=== PATIENT | female | born 1955 | race Caucasian/White ===

== ENCOUNTER 2023-09-02 11:27 | Inpatient (IN) ==
[2023-09-02 12:06] LABS: Basophils # (auto) 0.03 K/uL (0.00-0.20); Basophils % (auto) 0.4 %; Eosinophils # (auto) 0.16 K/uL (0.00-0.50); Eosinophils % (auto) 2.2 %; Hematocrit (blood only) 40.1 % (37.0-47.0); Hemoglobin 13.2 g/dl (12.0-16.0); Immature Granulocytes # (auto) 0.01 K/uL (0.01-0.20); Immature Granulocytes % (auto) 0.1 %; Lymphocytes # (auto) 2.62 K/uL (1.20-3.40); Lymphocytes % (auto) 36.4 %; Mean Corpuscular Hemoglobin 28.8 pg (25.0-34.0); Mean Corpuscular Hgb Conc 32.9 g/dL (32.0-36.0); Mean Corpuscular Volume 87.6 fL (80.0-100.0); Mean Platelet Volume 9.6 fL (9.4-12.4); Monocytes # (auto) 0.45 K/uL (0.11-0.59); Monocytes % (auto) 6.3 %; Neutrophils # (auto) 3.93 K/uL (1.40-6.50); Neutrophils % (auto) 54.6 %; Platelet Count 330 K/uL (130-400); RDW Coefficient of Variation 12.9 % (11.5-14.5); RDW Standard Deviation 41.3 fL (36.4-46.3); Red Blood Count 4.58 M/uL (4.20-5.40)
[2023-09-02 12:22] LABS: Alanine Aminotransferase 15 U/L (7-52); Albumin Globulin Ratio 1.5 (0.9-2); Albumin Level 4.5 gm/dl (3.4-5.0); Alkaline Phosphatase 63 U/L (34-104); Anion Gap 8 (3-11); Aspartate Aminotransferase 17 U/L (13-39); BUN Creatinine Ratio 11.3 (10-20); Bilirubin,Total 0.8 mg/dl (0.2-1.0); Blood Urea Nitrogen 13 mg/dl (6-23); Calcium 9.6 mg/dl (8.6-10.3); Carbon Dioxide 28 mmol/L (21-32); Chloride 103 mmol/L (98-107); Est GFR (African American) 57.4 ml/min; Est GFR (Non-African American) 49.5 ml/min; Globulin 3.1 gm/dl (2.5-4.0); Glucose 92 mg/dl (70-99(Fasting)); Lipase 13 U/L (11-82); Potassium 4.1 mmol/L (3.5-5.1); Sodium 139 mmol/L (136-145); Total Protein 7.6 gm/dl (6.0-8.3)
--- NOTE | 2023-09-02 12:55 | CT Scan Report ---
ABDOMEN AND PELVIS CT WITHOUT CONTRAST CT DOSE: 900.75 mGy.cm HISTORY: abd pain, recurrent diverticulitis TECHNIQUE: Multiaxial CT images of the abdomen and pelvis were performed without contrast. A dose lo wering technique was utilized adhering to the principles of ALARA. COMPARISON STUDY: Abdomen and pelvis CT 08/24/2023. FINDINGS: A few bibasilar linear densities consistent with subsegmental atelectasis. No acute fractur es. The unenhanced liver, spleen, adrenal glands, and pancreas unremarkable. Prior cholecystectomy. N o retroperitoneal lymphadenopathy. There is a punctate left renal stone again noted. No ureteral ston es. No hydronephrosis. Mild calcified plaque within the normal caliber abdominal aorta. Stable hypode nse lesions within the left kidney measuring up to 1.5 cm. The bladder is unremarkable. The uterus an d bilateral adnexa are unremarkable. Mild pericolonic fat stranding at the mid sigmoid colon within i nflamed diverticulum best seen on image 222. This is consistent with an acute diverticulitis. No perf oration or abscess at this time. Normal appendix. IMPRESSION: 1. Interval progression of mild acute sigmoid diverticulitis seen on the prior study. No perforation or abscess identified at this time. 2. Left-sided nephrolithiasis. No hydronephrosis. 3. Additional findings as described above. ACT 112: Negative or not required by law. Electronically signed by: Randolph Mendoza M.D. 09/02/2023 12:53 PM
--- NOTE | 2023-09-02 13:26 | Emergency Department Note ---
Impression & Plan Diverticulitis, Failure of outpatient treatment ED Provider Note NAME: SARA PATEL AGE: 67 SEX: F : 1955 ARRIVES VIA: Walk-In INFORMANT: Patient, ED PROVIDER(S): Toy Pimentel MD CHIEF COMPLAINT: Abdominal pain HPI: This is a 67-year-old female with history of immunosuppression, recurrent diverticulitis presenting for worsening abdominal pain. Patient states she has had 3 rounds of previous diverticulitis, most recently over the past 2 to 3 months. She notes that she has had worsening abdominal pain since her last diagnosed diverticulitis about 1 to 2 weeks ago. She notes the pain was currently left lower quadrant and now has radiated to her entire abdomen. She notes she feels fatigued as well as nausea without vomiting or constipation or diarrhea. She notes no fevers at home. ROS: See above HPI for pertinent positives & negatives. A total of 10 systems reviewed and were otherwise negative. PAST MEDICAL HISTORY: See Below PAST SURGICAL HISTORY: See Below FAMILY HISTORY: See Below SOCIAL HISTORY: See Below HOME MEDICATIONS: See Below ALLERGIES: See Below VITALS: See Below PHYSICAL EXAMINATION: General: resting comfortably in no acute distress Head: Normocephalic and atraumatic Eyes: Normal inspection, extraocular muscles intact Ear, nose, throat: Normal external exam Neck: Normal range of motion Respiratory: lungs clear to auscultation bilaterally Cardiovascular: Regular rate/rhythm, no murmur GI: Diffusely tender without rebound, mild voluntary guarding, soft Extremities: nontender, moves all extremities Neuro: The patient awake and alert, appropriately conversive, no focal deficits, symmetric faces Skin: Warm, dry, and intact MEDICAL DECISION MAKING: This is a 67-year-old female with history of immunosuppression, recurrent diverticulitis refers abdominal pain. CT imaging ordered in triage due to patient's complicated abdominal history and immunosuppression. Otherwise blood work also ordered. -Lab work reviewed without leukocytosis, anemia. No electrolyte disturbances. No lipase elevation -Patient's abdomen is diffusely tender -CT imaging reveals interval progression of mild sigmoid diverticulitis. -Will give patient Zosyn. Tolerated well without any acute allergic reaction despite her current allergies. -Due to prolonged course of patient diverticulitis despite p.o. antibiotics, consider this a failure of outpatient treatment. Will admit for IV antibiotics at this time. Differential diagnosis: SBO, pancreatitis, diverticulitis, cholecystitis, appendicitis ER treatment provided: See below Diagnostics interpreted by me: ECG: ECG independently interpreted by me with normal sinus rhythm, rate of 59, normal axis, normal NE, normal QRS, normal QTc, no ST segment elevations consistent with STEMI criteria Cardiac Monitoring: An order was placed for continuous cardiac monitoring. The monitor shows a rate of 54 with sinus rhythm. Laboratory studies: As stated above and show below. Imaging studies: See below. Past Med/Surg History Medical History Hx of retinal detachment Family History Father Aortic aneurysm Bladder cancer Family history of prostate carcinoma Heart disease Hyperlipidemia Aunt COPD (chronic obstructive pulmonary disease) Brother Diabetes Mother Hypertension Cataract Glaucoma Social History Smoking Status: Former smoker Tobacco Type: Cigarettes Preferred Language: Korean marital status: Feels Safe at Home: Yes Allergies Allergies Allergy/AdvReac Type Severity Reaction Status Date / Time Iodinated Contrast Media Allergy Severe Anaphylaxis Verified 09/02/23 15:12 cephalexin [From Keflex] Allergy Intermediate HARD Verified 09/02/23 15:12 REDDENED, FRANCISCO-LIKE AREA ON ARM AFTER PO DOSE Latex, Natural Rubber Allergy Intermediate ITCHY RASH Verified 09/02/23 15:12 nickel Allergy Intermediate ITCHY RASH Verified 09/02/23 15:12 Penicillins Allergy Intermediate HARD Verified 09/02/23 15:12 REDDENED, FRANCISCO-LIKE AREA ON ARM AFTER PO DOSE. amoxicillin [From Augmentin] Allergy Mild HARD Verified 09/02/23 15:12 REDDENED, FRANCISCO-LIKE AREA ON ARM AFTER PO DOSE clavulanic acid Allergy Mild HARD Verified 09/02/23 15:12 [From Augmentin] REDDENED, FRANCISCO-LIKE AREA ON ARM AFTER PO DOSE lidocaine AdvReac Severe INFUSION--S Verified 09/02/23 15:12 EIZURE prochlorperazine AdvReac Intermediate MUSCLE Verified 09/02/23 15:12 [From Compazine] SPASMS THAT CAUSED NECK TO CONTORT Home Meds Home Medications Medication Instructions Recorded Confirmed aspirin 81 mg capsule 81 mg PO DAILY 08/31/22 09/02/23 cholecalciferol (vitamin D3) 50 50 mcg PO DAILY 08/31/22 09/02/23 mcg (2,000 unit) capsule hydroxyzine HCl 10 mg tablet 10 mg PO DAILY 08/31/22 09/02/23 mecobalamin (vitamin B12) 500 mcg 500 mcg PO Q OTHER DAY 08/31/22 09/02/23 chewable tablet polyethylene glycol 3350 17 8.5 g PO BID PRN Constipation 08/31/22 09/02/23 gram/dose oral powder (Miralax) amlodipine 2.5 mg tablet See Rx Instructions .Route .COMPLEX 07/26/23 09/02/23 bupropion HCl 150 mg 24 hr tablet, 150 mg PO TID 07/26/23 09/02/23 extended release mupirocin 2 % topical ointment 1 applic topical TID PRN Open 07/26/23 09/02/23 Wounds pregabalin 75 mg capsule 75 mg PO TID 07/26/23 09/02/23 vitamin B complex 1 tab PO Q OTHER DAY 07/26/23 09/02/23 vitamin B12 0.5 mg-folic acid 1 mg 1 tab PO Q OTHER DAY 07/26/23 09/02/23 tablet Compound Ointment 1 applic topical QID 08/24/23 09/02/23 ascorbic acid (vitamin C) 500 mg 500 mg PO DAILY 08/24/23 09/02/23 tablet (Vitamin C) betamethasone, augmented 0.05 % 1 applic topical BID 08/24/23 09/02/23 topical ointment clobetasol 0.05 % topical ointment 1 applic topical BID 08/24/23 09/02/23 Results & Data (ED) Vital Signs Vital Signs - 24 hr 09/02/23 11:29 09/02/23 15:52 Temperature 36.6 C Temperature Source Temporal Artery Scan Pulse Rate 79 Pulse Rate [Finger] 54 L Pulse Rhythm [Finger] Regular Pulse Strength [Finger] Normal Respiratory Rate 16 Respiratory Effort / Characteristics Non-Labored Spontaneous Non-Labored Respiratory Depth Normal Normal Respiratory Pattern Regular Blood Pressure 152/78 H Blood Pressure [Left Arm] 109/51 L Blood Pressure Mean 102 Blood Pressure Mean [Left Arm] 70 Blood Pressure Position [Left Arm] Lying Pulse Oximetry 97 97 Oxygen Delivery Method Room Air Room Air Sepsis New/Unexplained Change in Mental Status No Sepsis Action Taken by Nursing No Action Required Laboratory Data 09/02/23 11:48 09/02/23 11:48 Lab Results 09/02/23 09/02/23 09/02/23 Range/Units 11:48 15:19 Unknown WBC 7.20 (4.8-10.8) K/ul RBC 4.58 (4.20-5.40) M/uL Hgb 13.2 (12.0-16.0) g/dl Hct 40.1 (37.0-47.0) % MCV 87.6 (80.0-100.0) fL MCH 28.8 (25.0-34.0) pg MCHC 32.9 (32.0-36.0) g/dL RDW Std Deviation 41.3 (36.4-46.3) fL RDW Coeff of Catherine 12.9 (11.5-14.5) % Plt Count 330 (130-400) K/uL MPV 9.6 (9.4-12.4) fL Immature Gran % (Auto) 0.1 % Neut % (Auto) 54.6 % Lymph % (Auto) 36.4 % Page % (Auto) 6.3 % Eos % (Auto) 2.2 % Baso % (Auto) 0.4 % Neut # (Auto) 3.93 (1.40-6.50) K/uL Lymph # (Auto) 2.62 (1.20-3.40) K/uL Page # (Auto) 0.45 (0.11-0.59) K/uL Eos # (Auto) 0.16 (0.00-0.50) K/uL Baso # (Auto) 0.03 (0.00-0.20) K/uL Immature Gran # (Auto) 0.01 (0.01-0.20) K/uL Sodium 139 (136-145) mmol/L Potassium 4.1 (3.5-5.1) mmol/L Chloride 103 (98-107) mmol/L Carbon Dioxide 28 (21-32) mmol/L Anion Gap 8 (3-11) BUN 13 (6-23) mg/dl Creatinine 1.15 (0.6-1.2) mg/dl Est Cr Clr Drug Dosing Not Reportable Est GFR ( Amer) 57.4 ml/min Est GFR (Non-Af Amer) 49.5 ml/min BUN/Creatinine Ratio 11.3 (10-20) Glucose 92 (70-99(Fasting)) mg/dl Lactate 0.8 (0.4-2.0) mmol/L Calcium 9.6 (8.6-10.3) mg/dl Total Bilirubin 0.8 (0.2-1.0) mg/dl AST 17 (13-39) U/L ALT 15 (7-52) U/L Alkaline Phosphatase 63 (34-104) U/L Total Protein 7.6 (6.0-8.3) gm/dl Albumin 4.5 (3.4-5.0) gm/dl Globulin 3.1 (2.5-4.0) gm/dl Albumin/Globulin Ratio 1.5 (0.9-2) Lipase 13 (11-82) U/L Urine Color Yellow Urine Appearance Clear (Clear) Urine pH 7.0 (4.5-7.5) Ur Specific Mathews 1.015 (1.000-1.030) Urine Protein Negative (Negative) Urine Glucose (UA) Negative (Negative) Urine Ketones Trace H (Negative) Urine Blood Negative (Negative) Urine Nitrite Negative (Negative) Urine Bilirubin Negative (Negative) Urine Urobilinogen Negative (Negative) Ur Leukocyte Esterase Trace H (Negative) Urine WBC (Auto) 1-5 (0-5) /hpf Urine RBC (Auto) 0-4 (0-4) /hpf U Hyaline Cast (Auto) 5-10 H (0-5) /lpf U Epithel Cells (Auto) 10-20 H (0-5) /lpf Urine Bacteria (Auto) Negative (Negative) Administered Medications Ondansetron HCl (Ondansetron Inj 2 Mg/Ml 2 Ml Vial) 4 mg IV Q6H PRN PRN Reason: Nausea Stop: 10/02/23 14:00 Last Admin: 09/02/23 18:56 Dose: 4 mg Documented By: EMB Discontinued Medications Ceftriaxone Sodium (Ceftriaxone Sodium 2000mg/50ml D5w) Confirm Administered Dose 2,000 mg IV .STK-MED ONE Stop: 09/02/23 17:03 Last Admin: 09/02/23 18:42 Dose: Not Given Documented By: SWD Ceftriaxone Sodium (Rocephin) 2,000 mg in 50 mls @ 100 mls/hr IV NOW STA Stop: 09/02/23 14:07 Last Infusion: 09/02/23 18:43 Dose: Infused Documented By: Admin: 09/02/23 17:09 Dose: 100 mls/hr Documented By: MIHAELA Piperacillin Sod/Tazobactam Sod (Zosyn) 4.5 gm in 100 mls @ 200 mls/hr IV NOW ONE Stop: 09/02/23 14:27 Last Infusion: 09/02/23 16:42 Dose: Infused Documented By: Admin: 09/02/23 16:03 Dose: 200 mls/hr Documented By: DAVID Metronidazole (Metronidazole 500 Mg/100 Ml Bag) Confirm Administered Dose 500 mg IV .STK-MED ONE Stop: 09/02/23 17:02 Last Admin: 09/02/23 18:17 Dose: 500 mg Documented By: MIHAELA Imaging Data Radiologist's Impression: Abdomen/Pelvis CT 09/02/23 11:[address] WITHOUT CONTRAST CT DOSE: 900.75 mGy.cm HISTORY: abd pain, recurrent diverticulitis TECHNIQUE: Multiaxial CT images of the abdomen and pelvis were performed without contrast. A dose lowering technique was utilized adhering to the principles of ALARA. COMPARISON STUDY: Abdomen and pelvis CT 08/24/2023. FINDINGS: A few bibasilar linear densities consistent with subsegmental atelectasis. No acute fractures. The unenhanced liver, spleen, adrenal glands, and pancreas unremarkable. Prior cholecystectomy. No retroperitoneal lymphadenopathy. There is a punctate left renal stone again noted. No ureteral stones. No hydronephrosis. Mild calcified plaque within the normal caliber abdominal aorta. Stable hypodense lesions within the left kidney measuring up to 1.5 cm. The bladder is unremarkable. The uterus and bilateral adnexa are unremarkable. Mild pericolonic fat stranding at the mid sigmoid colon within inflamed diverticulum best seen on image 222. This is consistent with an acute diverticulitis. No perforation or abscess at this time. Normal appendix. IMPRESSION: 1. Interval progression of mild acute sigmoid diverticulitis seen on the prior study. No perforation or abscess identified at this time. 2. Left-sided nephrolithiasis. No hydronephrosis. 3. Additional findings as described above. ACT 112: Negative or not required by law. Electronically signed by: Randolph Mendoza M.D. 09/02/2023 12:53 PM Discharge Plan Visit Data Chief Complaint: Referred by Doctor Stated Complaint: ABD PAINS,WEAKNESS, TIRED ED Provider: Toy Pimentel Discharge Problem: Diverticulitis, Failure of outpatient treatment Forms Stand Alone Forms: [facility] Prescriptions Prescriptions: No Action hydroxyzine HCl 10 mg tablet 10 mg PO DAILY polyethylene glycol 3350 [Miralax] 17 gram/dose powder 8.5 g PO BID PRN (Reason: Constipation) aspirin 81 mg capsule 81 mg PO DAILY cholecalciferol (vitamin D3) 50 mcg (2,000 unit) capsule 50 mcg PO DAILY mecobalamin (vitamin B12) 500 mcg tablet,chewable 500 mcg PO Q OTHER DAY vitamin B complex Tablet 1 tab PO Q OTHER DAY Rx Instructions: alternates with b12 qod mupirocin 2 % ointment 1 applic TOPICAL TID PRN (Reason: Open Wounds) bupropion HCl 150 mg tablet extended release 24 hr 150 mg PO TID vitamin [id number] acid 0.5-1 mg Tablet 1 tab PO Q OTHER DAY pregabalin 75 mg capsule 75 mg PO TID amlodipine 2.5 mg tablet See Rx Instructions .ROUTE .COMPLEX Rx Instructions: TAKES 5 MG QAM, THEN 2.5 MG QPM. betamethasone, augmented 0.05 % ointment 1 applic TOPICAL BID Rx Instructions: Alternates w/ Clobetasol ointment every other day clobetasol 0.05 % ointment 1 applic TOPICAL BID Rx Instructions: Alternates w/ Betamethasone ointment every other day Compound Ointment 1 applic topical QID Rx Instructions: EDGARDO 10/DIC 6/CYC 4/TET 4/KET 10% ascorbic acid (vitamin C) [Vitamin C] 500 mg Tablet 500 mg PO DAILY Referrals Referrals: Serena Torres, [Primary Care Provider] -
[2023-09-02] MEDS ORDERED: metroNIDAZOLE 500 MG/100 ML BAG IV STA ×2 (13:36→13:38)
--- NOTE | 2023-09-02 14:37 | History & Physical Report ---
Date of Service September 02, 2023 Assessment & Plan (1) Diverticulitis: Plan: Assessment: 1. Acute/subacute diverticulitis of the sigmoid colon with failed outpatient antibiotic treatment with multiple rounds of oral antibiotic treatment including multiple rounds of Flagyl, at least 1 round of ciprofloxacin, and at least 1 round of Bactrim,. IV Zosyn. Clear liquids. Again lengthy discussion with the patient that she needs to consider an elective sigmoid colon resection but she is not currently receptive to that idea. 2. Reflect sympathetic dystrophy by history. 3. History of nonalcoholic fatty liver disease. 4. Chronically immunosuppressed state with use of Plaquenil in the past. 5. Carotid artery disease. 6. Depression. 7. CKD stage II-III. Plan: As discussed above. Please refer to orders for further planning. History of Present Illness Chief Complaint: Abdominal pain. Acute diverticulitis. Primary Care Provider: Serena Torres DO This is a 67-year-old female who has a history of recurrent diverticulitis of the sigmoid colon. She has been having an episode flare for about the last 6 or 8 weeks she has had multiple rounds of oral antibiotic therapy including multiple rounds of Flagyl multiple rounds of Cipro and Bactrim. The patient was having increased pain. She has not felt well in 6 weeks she presents today for further evaluation and treatment. CAT scan shows acute sigmoid: Diverticulitis. Her labs are reassuring however. Lactic acid was ordered and when we excepted the patient it is pending. And blood cultures were ordered. The patient has multiple antibiotic allergies as listed. We went through those with her. The patient confirms she has had Zosyn when she has failed all oral antibiotics in the past and has responded well to that. Therefore we are going to place her on Zosyn. In addition we talked to her about the possibility of a sigmoid colon resection electively. She is refused it multiple times in past. Past medical history: Atopic dermatitis, carotid artery disease, CKD stage II- III, depression, dyslipidemia, history of immunosuppressed state was on Plaquenil for an extended period of time, nonalcoholic fatty liver disease, reflex sympathetic dystrophy, recurrent diverticulitis due to diverticulosis. Past surgical history colonoscopy, cataract surgery cholecystectomy, carpal tunnel surgery, eye surgery, lumbar spine epidural injections. Social history patient is lives with her she denies use of alcohol tobacco or illicit street drugs she was a smoker to the age of 31. She has 2 adult children. 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 Family medical history: Obtained and noncontributory. CODE STATUS full code I personally spoke with the patient. Allergies Allergy/AdvReac Type Severity Reaction Status Date / Time Iodinated Contrast Media Allergy Severe Anaphylaxis Verified 08/24/23 14:39 cephalexin [From Keflex] Allergy Intermediate HARD Verified 08/24/23 14:39 REDDENED, FRANCISCO-LIKE AREA ON ARM AFTER PO DOSE Latex, Natural Rubber Allergy Intermediate ITCHY RASH Verified 08/24/23 14:39 nickel Allergy Intermediate ITCHY RASH Verified 08/24/23 14:39 Penicillins Allergy Intermediate HARD Verified 08/24/23 14:39 REDDENED, FRANCISCO-LIKE AREA ON ARM AFTER PO DOSE. amoxicillin [From Augmentin] Allergy Mild HARD Verified 08/24/23 14:39 REDDENED, FRANCISCO-LIKE AREA ON ARM AFTER PO DOSE clavulanic acid Allergy Mild HARD Verified 08/24/23 14:39 [From Augmentin] REDDENED, FRANCISCO-LIKE AREA ON ARM AFTER PO DOSE lidocaine AdvReac Severe INFUSION--S Verified 08/24/23 14:39 EIZURE prochlorperazine AdvReac Intermediate MUSCLE Verified 08/24/23 14:39 [From Compazine] SPASMS THAT CAUSED NECK TO CONTORT Home Medications Medication Instructions Recorded Confirmed Type aspirin 81 mg capsule 81 mg PO DAILY 08/31/22 08/24/23 History cholecalciferol (vitamin D3) 50 50 mcg PO DAILY 08/31/22 08/24/23 History mcg (2,000 unit) capsule hydroxyzine HCl 10 mg tablet 10 mg PO DAILY 08/31/22 08/24/23 History mecobalamin (vitamin B12) 500 mcg 500 mcg PO Q OTHER DAY 08/31/22 08/24/23 History chewable tablet polyethylene glycol 3350 17 17 g PO BID PRN Constipation 08/31/22 08/24/23 Hi story gram/dose oral powder (Miralax) amlodipine 2.5 mg tablet See Rx Instructions .Route .COMPLEX 07/26/23 08/24/23 History bupropion HCl 150 mg 24 hr tablet, 150 mg PO TID 07/26/23 08/24/23 History extended release mupirocin 2 % topical ointment 1 applic topical TID PRN .OPEN 07/26/23 08/24/23 History WOUNDS pregabalin 75 mg capsule 75 mg PO TID 07/26/23 08/24/23 History vitamin B complex 1 tab PO Q OTHER DAY 07/26/23 08/24/23 History vitamin B12 0.5 mg-folic acid 1 mg 1 tab PO Q OTHER DAY 07/26/23 08/24/23 History tablet Compound Ointment 1 applic topical QID 08/24/23 08/24/23 History ascorbic acid (vitamin C) 500 mg 500 mg PO DAILY 08/24/23 08/24/23 History tablet (Vitamin C) betamethasone, augmented 0.05 % 1 applic topical BID 08/24/23 08/24/23 History topical ointment clobetasol 0.05 % topical ointment 1 applic topical BID 08/24/23 08/24/23 History metronidazole 500 mg tablet 500 mg PO Q8H 08/24/23 08/24/23 History ondansetron 4 mg disintegrating 4 mg PO Q4H PRN nausea and 08/24/23 Rx tablet vomiting 0 days #10 tabs sulfamethoxazole 800 1 tab PO BID 08/24/23 08/24/23 History mg-trimethoprim 160 mg tablet tramadol 50 mg tablet 50 mg PO Q6H PRN pain #14 tabs 08/24/23 Rx vitamin E 268 mg (400 unit) capsule 268 mg PO DAILY 08/24/23 08/24/23 History Past Med/Surg History Medical History Hx of retinal detachment Family History Father Aortic aneurysm Bladder cancer Family history of prostate carcinoma Heart disease Hyperlipidemia Aunt COPD (chronic obstructive pulmonary disease) Brother Diabetes Mother Hypertension Cataract Glaucoma Social History Smoking Status: Former smoker Tobacco Type: Cigarettes Preferred Language: Japanese marital status: Feels Safe at Home: Yes Review of Systems Review of Systems: A 10 point review of system was obtained and unless otherwise stated here or in history of present illness are negative and noncontributory to chief complaint. Physical Exam Physical Exam: In General: In general this is a 67-year-old female she is alert and oriented x 3 at time my exam she is accompanied by her at the time my examination. Her only complaint is abdominal pain. HEENT: Normocephalic atraumatic pupils are equal round and reactive to light bilaterally. No scleral icterus no conjunctival injection external auditory canals are patent septum is in the midline nose is without discharge oral mucosa is pink and moist without lesion. NECK: Supple no rigidity no lymphadenopathy no thyromegaly no carotid bruits no JVD no masses. HEART: Regular rate and rhythm I do not appreciate any ectopy or rub. No mu rmur. LUNGS: Clear to auscultation bilaterally and anteriorly with no evidence of adventitious sounds/wheezes rales or rhonchi. ABDOMEN: Soft mild tenderness to palpation diffusely. Worse in the left lower quadrant. No rebound, no peritoneal sign, no appreciable organomegaly. EXTREMITIES: Intact, no peripheral cyanosis, clubbing or edema. Strength is 5 out of 5 in extremities x4, no pathological reflexes. NEUROLOGICAL: Cranial nerves II through XII are grossly intact with no focal deficit elicited upon examination. No tremor. Results & Data Results & Data Vital Signs (Past 12 Hours) Vital Signs Temp Pulse Resp BP Pulse Ox O2 Del Method 09/02/23 11:29 36.6 C 79 16 152/78 H 97 Room Air Code Status & VTE Plan Code Status Full code. I personally spoke with patient. PG Care Time/CCT Total # of Minutes Spent Total Time Spent with Patient: Total time spent is greater than 50% in coordination of care (as documented) at patient's floor/unit and/or counseling patient: Coding Level of Care Code 70870 INT INP/OBS CARE MIN Diagnoses Diverticulitis K57.92
[2023-09-02] MEDS: PIPERACILLIN/TAZOBACTAM 4.5 GM/100 ML BAG IV ONE (16:03)
[2023-09-02] MEDS: cefTRIAXone SODIUM 2,000 MG/50 ML BAG IV STA (17:09)
[2023-09-02] MEDS: metroNIDAZOLE 500 MG/100 ML BAG IV ONE (18:17)
[2023-09-02] MEDS: cefTRIAXone SODIUM 2000MG/50ML D5W IV ONE (18:42)
[2023-09-02 18:46] LABS: Appearance Urine Clear (Clear); Bacteria Urine Automated Negative (Negative); Bilirubin Urine Negative (Negative); Blood Urine Negative (Negative); Color Urine Yellow; Glucose Urine UA Negative (Negative); Ketones Urine Trace (Negative); Leukocyte Esterase Urine Trace (Negative); Nitrite Urine Negative (Negative); Protein Urine Negative (Negative); RBC Urine Automated 0-4 /hpf (0-4); Specific Gravity Urine 1.015 (1.000-1.030); Urobilinogen Urine Negative (Negative)
[2023-09-02] MEDS: ONDANSETRON INJ 2 MG/ML 2 ML VIAL IV PRN (18:56)
[2023-09-02] MEDS: PIPERACILLIN/TAZOBACTAM 4.5 GM in DEXTROSE 5% MINI-B 100 ML IV SCH (21:30)
[2023-09-02] MEDS: PREGABALIN 75 MG CAP PO STA (21:30)
[2023-09-02] MEDS: amLODIPine BESYLATE 5 MG TAB PO ONE (21:30)
[2023-09-02] MEDS: buPROPion XL 150 MG TABCR PO STA (23:28)
[2023-09-02] MEDS ORDERED: POLYETHYLENE (MIRALAX) 17 GM PACK PO PRN (23:46)
[2023-09-03] MEDS: CLOBETASOL PROPIONATE 0.05% OINT 15 GM TUBE EXT SCH (00:46)
[2023-09-03] MEDS: ACETAMINOPHEN 325 MG TAB PO PRN (05:07)
[2023-09-03 06:28] LABS: Basophils # (auto) 0.02 K/uL (0.00-0.20); Basophils % (auto) 0.4 %; Eosinophils # (auto) 0.15 K/uL (0.00-0.50); Eosinophils % (auto) 2.7 %; Hematocrit (blood only) 35.6 % (37.0-47.0); Immature Granulocytes # (auto) 0.02 K/uL (0.01-0.20); Immature Granulocytes % (auto) 0.4 %; Lymphocytes # (auto) 2.17 K/uL (1.20-3.40); Mean Corpuscular Hemoglobin 29.1 pg (25.0-34.0); Mean Corpuscular Hgb Conc 33.7 g/dL (32.0-36.0); Mean Corpuscular Volume 86.4 fL (80.0-100.0); Mean Platelet Volume 10.2 fL (9.4-12.4); Monocytes # (auto) 0.46 K/uL (0.11-0.59); Monocytes % (auto) 8.3 %; Neutrophils # (auto) 2.74 K/uL (1.40-6.50); Neutrophils % (auto) 49.2 %; Platelet Count 313 K/uL (130-400); RDW Coefficient of Variation 12.9 % (11.5-14.5); RDW Standard Deviation 40.6 fL (36.4-46.3); Red Blood Count 4.12 M/uL (4.20-5.40); White Blood Count 5.56 K/ul (4.8-10.8)
[2023-09-03 06:46] LABS: Albumin Globulin Ratio 1.6 (0.9-2); Albumin Level 3.9 gm/dl (3.4-5.0); BUN Creatinine Ratio 10.5 (10-20); Bilirubin,Total 0.7 mg/dl (0.2-1.0); Calcium 8.6 mg/dl (8.6-10.3); Creatinine Clr Calc Pharmacy 48.1 ml/min; Est GFR (African American) 64.1 ml/min; Est GFR (Non-African American) 55.3 ml/min; Globulin 2.5 gm/dl (2.5-4.0); Magnesium 2.2 mg/dl (1.7-2.4); Potassium 4.1 mmol/L (3.5-5.1); Total Protein 6.4 gm/dl (6.0-8.3)
[2023-09-03 06:59] LABS: Thyroid Stimulating Hormone 4.212 uIu/ml (0.300-4.500)
[2023-09-03] MEDS: amLODIPine BESYLATE 5 MG TAB PO SCH ×2 (08:05→20:51)
[2023-09-03] MEDS: ASPIRIN 81 MG ECTAB PO SCH (08:06)
[2023-09-03] MEDS: CHOLECALCIFEROL 25 MCG (1000 UNITS) TAB PO SCH (08:06)
[2023-09-03] MEDS: buPROPion XL 150 MG TABCR PO SCH (08:06)
[2023-09-03] MEDS: hydrOXYzine HCl 10 MG TAB PO SCH (08:07)
[2023-09-03] MEDS: VITAMIN B COMPLEX TAB PO SCH (08:07)
[2023-09-03] MEDS: FOLIC ACID 1 MG TAB PO SCH (08:07)
--- NOTE | 2023-09-03 11:06 | Gastrointestinal Consultation ---
Date of Consultation September 03, 2023 Assessment & Plan (1) Diverticulitis: (2) Failure of outpatient treatment: Plan Patient with several decades of recurrent diverticulitis. she has failed outpatient oral therapy and is now inpatient for IV antibiotics. Now on IV zosyn. She follows with [facility] as outpatient. Discussed case with Dr. Cole. - continue with IV zosyn. - recommend she keep follow up as outpatient with her primary GI team at [facility]. she has appointment 09/14/23 per patient. she can discuss updating colonoscopy and/or referral to colorectal surgery, though she tells me she does not desire surgery at this time. - I messaged her primary team with her concerns about her lyrica. Supervising Physician Co-Signing Physician Notes Patient was using the restroom when I came by to see her, spoke with family, continue IV antibiotics. History of Present Illness Reason for Consultation: recurrent diverticulitis Requesting Physician: Santosh Winters MD Attending Physician: Santosh Winters History of Present Illness Patient is a 67 year old female who has a history of recurrent diverticulitis of the sigmoid colon. she tells me that she follows with [facility] on this as an outpatient and has an appointment with Dr. Devi on 09/14/23. She admits that she has had multiple episodes of diverticulitis since she was a teenager/in her 20s. she has had multiple rounds of oral antibiotic therapy including multiple rounds of Flagyl multiple rounds of Cipro and Bactrim. In the past she had discussed with surgery about elective surgery for this but she tells me she was advised by multiple physicians against this. she tells me she is not interested in this. She tells me her recent episode had restarted a day after having finished antibiotics orally. she called her primary care physician who advised she proceed to the ED. she had CT since arriving here showing mild sigmoid diverticulitis. she has been started on IV zosyn and she tells me she has done well with this in the past. she rates her pain currently as a 6/10. she tells me she has had several colonoscopies through [facility] in the past. I do not have these records. she is very upset that she has not been given her lyrica for her RSD. this is her main concern today. Allergies Allergy/AdvReac Type Severity Reaction Status Date / Time Iodinated Contrast Media Allergy Severe Anaphylaxis Verified 09/02/23 15:12 cephalexin [From Keflex] Allergy Intermediate HARD Verified 09/02/23 15:12 REDDENED, FRANCISCO-LIKE AREA ON ARM AFTER PO DOSE Latex, Natural Rubber Allergy Intermediate ITCHY RASH Verified 09/02/23 15:12 nickel Allergy Intermediate ITCHY RASH Verified 09/02/23 15:12 Penicillins Allergy Intermediate HARD Verified 09/02/23 15:12 REDDENED, FRANCISCO-LIKE AREA ON ARM AFTER PO DOSE. amoxicillin [From Augmentin] Allergy Mild HARD Verified 09/02/23 15:12 REDDENED, FRANCISCO-LIKE AREA ON ARM AFTER PO DOSE clavulanic acid Allergy Mild HARD Verified 09/02/23 15:12 [From Augmentin] REDDENED, FRANCISCO-LIKE AREA ON ARM AFTER PO DOSE lidocaine AdvReac Severe INFUSION--S Verified 09/02/23 15:12 EIZURE prochlorperazine AdvReac Intermediate MUSCLE Verified 09/02/23 15:12 [From Compazine] SPASMS THAT CAUSED NECK TO CONTORT Home Medications Medication Instructions Recorded Confirmed Type aspirin 81 mg capsule 81 mg PO DAILY 08/31/22 09/02/23 History cholecalciferol (vitamin D3) 50 50 mcg PO DAILY 08/31/22 09/02/23 History mcg (2,000 unit) capsule hydroxyzine HCl 10 mg tablet 10 mg PO DAILY 08/31/22 09/02/23 History mecobalamin (vitamin B12) 500 mcg 500 mcg PO Q OTHER DAY 08/31/22 09/02/23 History chewable tablet polyethylene glycol 3350 17 8.5 g PO BID PRN Constipation 08/31/22 09/02/23 History gram/dose oral powder (Miralax) amlodipine 2.5 mg tablet See Rx Instructions .Route .COMPLEX 07/26/23 09/02/23 History bupropion HCl 150 mg 24 hr tablet, 150 mg PO TID 07/26/23 09/02/23 History extended release mupirocin 2 % topical ointment 1 applic topical TID PRN Open 07/26/23 09/02/23 History Wounds pregabalin 75 mg capsule 75 mg PO TID 07/26/23 09/02/23 History vitamin B complex 1 tab PO Q OTHER DAY 07/26/23 09/02/23 History vitamin B12 0.5 mg-folic acid 1 mg 1 tab PO Q OTHER DAY 07/26/23 09/02/23 History tablet Compound Ointment 1 applic topical QID 08/24/23 09/02/23 History ascorbic acid (vitamin C) 500 mg 500 mg PO DAILY 08/24/23 09/02/23 History tablet (Vitamin C) betamethasone, augmented 0.05 % 1 applic topical BID 08/24/23 09/02/23 History topical ointment clobetasol 0.05 % topical ointment 1 applic topical BID 08/24/23 09/02/23 History Patient History Medical History Hx of retinal detachment Family History Father Aortic aneurysm Bladder cancer Family history of prostate carcinoma Heart disease Hyperlipidemia Aunt COPD (chronic obstructive pulmonary disease) Brother Diabetes Mother Hypertension Cataract Glaucoma Social History Smoking Status: Former smoker Tobacco Type: Cigarettes Do You Dip or Chew Tobacco: No; Hx Alcohol Use: No Hx Substance Use: Yes Substance Use Type Other:: Medical Marijuana Preferred Language: Hungarian Communication Ability: Effective Lead Python Developer Required: No Beliefs That Will Affect Care: None marital status: Current Living Situation: Spouse Other Information That Helps Us Care for You: No Feels Safe at Home: Yes Safety Concerns: Feels Safe At This Time Assistive Devices: Cane, Glasses, Stair Lift, Walker and Wheelchair Review of Systems Review of Systems: All systems reviewed & are unremarkable except as noted in HPI & below Physical Exam Constitutional: WD/WN, vitals as above Respiratory: normal respiratory effort, lungs clear to auscultation Cardiovascular: RRR, no murmur, no edema Gastrointestinal (Abdomen): diffuse tenderness, no guarding, soft. normal bowel sounds. Psychiatric: Orientation: alert and oriented x 3 Results & Data Vital Signs (Past 12 Hours) Vital Signs Temp Pulse Resp BP Pulse Ox O2 Del Method 09/03/23 07:54 98.2 F 56 L 18 103/59 L 94 Room Air 09/02/23 23:50 Room Air 09/02/23 23:50 98.1 F 60 18 139/75 96 Room Air Coding Level of Care Code 20305 INT INP/OBS CARE Diagnoses Diverticulitis K57.92 Failure of outpatient treatment Z78.9
[2023-09-03] MEDS: PREGABALIN 75 MG CAP PO SCH (11:12)
--- NOTE | 2023-09-03 11:19 | Infectious Disease Consult ---
Date of Consultation September 03, 2023 Assessment & Plan (1) Diverticulitis: (2) Acute abdominal pain: (3) Failure of outpatient treatment: Plan 67yo F with h/o recurrent diverticulitis of the sigmoid colon (multiple episodes in the past, most recently s/p cipro/flagyl given on 07/26/23, then recurrence early 08/2023 and tx Bactrim/flagyl CTAP 08/23 with early acute diverticulitis), CKD II-III, atopic dermatitis, mechanics hands with c/f mixed connective tissue disease (was never on plaquenil as noted in chart confirmed with patient, patient following rheum), NAFLD, CAD, depression, neurogenic bladder (no chronic henley), C diff infection in 2011, allergy noted to keflex (rash on arm) but tolerated zosyn (not aware of allergy to amoxicillin) who presented on 09/01 with increased abdominal pain despite PO abx with Bactrim/flagyl. She was seen in ED on 07/26 with dx of diverticulitis and was discharged on cipro/flagyl x 14 days. Sigmoid resection has been previously discussed and she has refused. Here, she has been afebrile, BP stable. WBC wnl. Cr 1.15. LFT wnl. UA negative. BCx in process. CTAP w/o contrast with interval progression of mild acute sigmoid diverticulitis, no perforation or abscess; left nephrolithiasis without hydro. She has been started on zosyn (note she tolerated CTX administered on admission). ID consulted on 09/02 for assistance. Patient currently with abdominal pain, no diarrhea. Continue on zosyn. If she develops loose stools, then sent stool studies including C diff and GI pathogen panel. If she develops any fevers, hemodynamic instability, worsening leukocytosis, or worsening abdominal pain, would repeat CTAP but with IV contrast to assess for abscess or other complications. # Recurrent sigmoid diverticulitis # CKD # NAFLD # prior h/o C diff - continue on zosyn - follow up on blood cx - if clinical worsening (ie fevers, worsening leukocytosis or abdominal pain, hemodynamic instability), obtain IV contrast enhanced CTAP if safe to do so ID will continue to follow. If questions or concerns, contact Infectious Disease Call Center . Guerita Valadez MD [facility], Division of Infectious Diseases [facility]: [phone] Consultation Information Consultation was provided via telemedicine using two-way real-time interactive telecommunication between the patient and the telemedicine provider. For the duration of the visit, the provider was performing the assessment from a different facility than the patient. This includesuse of bluetooth stethoscope forauscultationperformed by the telepresenter that the telemedicine provider can hear if described in the physical exam. Utility System Operator contact information: Please call [facility] Call Center . (Phone Number For Physician Use Only) After establishing a telemedicine visit, patient was: Patient was verified with two unique identifiers, Patient/authorized rep acknowledged consent and understanding and Gave permission to continue telehealth session Time Spent with Patient: Initial => 75 min History of Present Illness Reason for Consultation: diverticulitis Attending Physician: Santosh Winters History of Present Illness 67yo F with h/o recurrent diverticulitis of the sigmoid colon, CKD II-III, atopic dermatitis, mechanics hands with c/f mixed connective tissue disease (was never on plaquenil as noted in chart confirmed with patient, patient following rheum), NAFLD, CAD, depression, neurogenic bladder (no chronic henley), C diff infection in 2011 who presented on 09/01 with increased abdominal pain. Per chart, she was seen in ED on 07/26 with dx of diverticulitis and was discharged on cipro/flagyl x 14 days. She was seen in ED on 08/23 where she reported worsening abdominal pain x 1 week (was seen at [place] where she was placed on Bactrim and flagyl). CTAP at that time showed questionable early acute diverticulitis of mid-sigmoid colon. She was discharged home with supportive care and continued abx from [place]. On this admission, she had reported not feeling well x 6 weeks. Also has multiple drug allergies (keflex, PCN, augmentin) but reportedly tolerated zosyn. Sigmoid resection has been previously discussed and she has refused. Here, she has been afebrile, BP stable. WBC wnl. Cr 1.15. LFT wnl. UA negative. BCx in process. CTAP w/o contrast with interval progression of mild acute sigmoid diverticulitis, no perforation or abscess; left nephrolithiasis without hydro. She has been started on zosyn. ID consulted on 09/02 for assistance. On evaluation, she reports that she had continued to have abdominal pain despite abx. She was seen outpatient and was sent to the ED due to concerns that PO abx were not working. She says shes had multiple episodes of diverticulitis in the past, first episode going back to 21-40yo. Some prior h/o IBS. Prior cscope with biopsy, says she had fibroblasts with fat stranding. Was doing well for a few years until this year when diverticulitis recurred. Prior h/o pancreatitis with stone around [id number]. Has h/o C diff in 2011. No bloody stools, no diarrhea, no vomiting, but does have nausea. Notes diffuse abdominal pain. Started with pain on left side. Has h/o getting red blotches and a francisco in her right arm from taking keflex and was told not to take any PCNs. She doesnt know about any allergy to amoxicillin. She did not have a reaction to CTX when it was given in ED, tolerating zosyn. CTX 09/01 Zosyn 09/01- Allergies Allergy/AdvReac Type Severity Reaction Status Date / Time Iodinated Contrast Media Allergy Severe Anaphylaxis Verified 09/02/23 15:12 cephalexin [From Keflex] Allergy Intermediate HARD Verified 09/02/23 15:12 REDDENED, FRANCISCO-LIKE AREA ON ARM AFTER PO DOSE Latex, Natural Rubber Allergy Intermediate ITCHY RASH Verified 09/02/23 15:12 nickel Allergy Intermediate ITCHY RASH Verified 09/02/23 15:12 Penicillins Allergy Intermediate HARD Verified 09/02/23 15:12 REDDENED, FRANCISCO-LIKE AREA ON ARM AFTER PO DOSE. amoxicillin [From Augmentin] Allergy Mild HARD Verified 09/02/23 15:12 REDDENED, FRANCISCO-LIKE AREA ON ARM AFTER PO DOSE clavulanic acid Allergy Mild HARD Verified 09/02/23 15:12 [From Augmentin] REDDENED, FRANCISCO-LIKE AREA ON ARM AFTER PO DOSE lidocaine AdvReac Severe INFUSION--S Verified 09/02/23 15:12 EIZURE prochlorperazine AdvReac Intermediate MUSCLE Verified 09/02/23 15:12 [From Compazine] SPASMS THAT CAUSED NECK TO CONTORT Home Medications Medication Instructions Recorded Confirmed Type aspirin 81 mg capsule 81 mg PO DAILY 08/31/22 09/02/23 History cholecalciferol (vitamin D3) 50 50 mcg PO DAILY 08/31/22 09/02/23 History mcg (2,000 unit) capsule hydroxyzine HCl 10 mg tablet 10 mg PO DAILY 08/31/22 09/02/23 History mecobalamin (vitamin B12) 500 mcg 500 mcg PO Q OTHER DAY 08/31/22 09/02/23 History chewable tablet polyethylene glycol 3350 17 8.5 g PO BID PRN Constipation 08/31/22 09/02/23 History gram/dose oral powder (Miralax) amlodipine 2.5 mg tablet See Rx Instructions .Route .COMPLEX 07/26/23 09/02/23 History bupropion HCl 150 mg 24 hr tablet, 150 mg PO TID 07/26/23 09/02/23 History extended release mupirocin 2 % topical ointment 1 applic topical TID PRN Open 07/26/23 09/02/23 History Wounds pregabalin 75 mg capsule 75 mg PO TID 07/26/23 09/02/23 History vitamin B complex 1 tab PO Q OTHER DAY 07/26/23 09/02/23 History vitamin B12 0.5 mg-folic acid 1 mg 1 tab PO Q OTHER DAY 07/26/23 09/02/23 History tablet Compound Ointment 1 applic topical QID 08/24/23 09/02/23 History ascorbic acid (vitamin C) 500 mg 500 mg PO DAILY 08/24/23 09/02/23 History tablet (Vitamin C) betamethasone, augmented 0.05 % 1 applic topical BID 08/24/23 09/02/23 History topical ointment clobetasol 0.05 % topical ointment 1 applic topical BID 08/24/23 09/02/23 History Patient History Medical History Hx of retinal detachment Family History Father Aortic aneurysm Bladder cancer Family history of prostate carcinoma Heart disease Hyperlipidemia Aunt COPD (chronic obstructive pulmonary disease) Brother Diabetes Mother Hypertension Cataract Glaucoma Social History Smoking Status: Former smoker Tobacco Type: Cigarettes Do You Dip or Chew Tobacco: No; Hx Alcohol Use: No Hx Substance Use: Yes Substance Use Type Other:: Medical Marijuana Preferred Language: Turkish Communication Ability: Effective International Marketing Executive Required: No Beliefs That Will Affect Care: None marital status: Current Living Situation: Spouse Other Information That Helps Us Care for You: No Feels Safe at Home: Yes Safety Concerns: Feels Safe At This Time Assistive Devices: Cane, Glasses, Stair Lift, Walker and Wheelchair Review of System 10-point review of systems reviewed and are negative except for as above. Physical Exam Physical Exam: General: Awake, alert, no acute distress HEENT: NC/AT, EOMI, mmm Neck: supple Lungs: respirations non-labored Heart: nl peripheral perfusion Abdomen: soft, diffusely tender Ext: no LE edema Skin: psoriatic rash on right leg Neuro: O x 3 Results & Data Vital Signs (Past 12 Hours) Vital Signs Temp Pulse Resp BP Pulse Ox O2 Del Method 09/03/23 07:54 36.8 C 56 L 18 103/59 L 94 Room Air 09/02/23 23:50 Room Air 09/02/23 23:50 36.7 C 60 18 139/75 96 Room Air Laboratory Results Labs reviewed Diagnostic Findings Imaging reviewed.
--- NOTE | 2023-09-03 11:54 | Electrocardiogram Report ---
Test Reason : Blood Pressure : / mmHG Vent. Rate : 059 BPM Atrial Rate : 059 BPM P-R Int : 144 ms QRS Dur : 066 ms QT Int : 418 ms P-R-T Axes : 015 -15 019 degrees QTc Int : 413 ms Sinus bradycardia Low voltage QRS Borderline ECG When compared with ECG of 26-JUL-2023 15:41, No significant change was found Confirmed by Barrington Higuera ([id number]) on 09/03/2023 11:54:21 AM Referred By: REFERRED SELF Confirmed By:Manan Higuera
--- NOTE | 2023-09-03 16:31 | Hospitalist Progress Note ---
Date of Service September 03, 2023 Assessment & Plan (1) Diverticulitis: Plan: Assessment: 1. Acute/subacute diverticulitis of the sigmoid colon with failed outpatient antibiotic treatment with multiple rounds of oral antibiotic treatment including multiple rounds of Flagyl, at least 1 round of ciprofloxacin, and at least 1 round of Bactrim,. IV Zosyn. Clear liquids. Patient not receptive to an idea of an elective sigmoid colon resection Consulted ID and appreciate input. 2. Reflect sympathetic dystrophy by history. 3. History of nonalcoholic fatty liver disease. 4. Chronically immunosuppressed state with use of Plaquenil in the past. 5. Carotid artery disease. 6. Depression. 7. CKD stage II-III. Admission and Anticipated Discharge Date Admission Date: September 02, 2023 Subjective Patient reports no new symptms. She continues to have pain in her abdomen. Moving her bowels. Review of Systems Review of Systems: All systems reviewed & are unremarkable except as noted in HPI & below Physical Exam Physical Exam: In General: 67 yo female appears comfortable in bed. HEENT: Normocephalic atraumatic NECK: Supple ABDOMEN: tenderness to soft palpation. EXTREMITIES: able to move all extremities Results & Data Results & Data Vital Signs (Past 12 Hours) Vital Signs Temp Pulse Resp BP Pulse Ox O2 Del Method 09/03/23 15:12 36.7 C 54 L 16 117/74 95 Room Air 09/03/23 07:54 36.8 C 56 L 18 103/59 L 94 Room Air PG Care Time/CCT Total # of Minutes Spent Total Time Spent with Patient: Total time spent is greater than 50% in coordination of care (as documented) at patient's floor/unit and/or counseling patient: Coding Level of Care Code 51517 SUB INP/OBS CARE 2/35MIN Diagnoses Diverticulitis K57.92
[2023-09-03] MEDS: ACETAMINOPHEN 1,000 MG/100 ML VIAL IV STA (20:43)
[2023-09-04] MEDS: traMADol HCL 50 MG TABLET PO PRN (00:03)
[2023-09-04] MEDS: CYANOCOBALAMIN (B-12) 500 MCG TABLET PO SCH (08:30)
[2023-09-04] MEDS: MUPIROCIN 2% OINT 22 GM TUBE TOP PRN (08:35)
[2023-09-04] MEDS ORDERED: PREGABALIN 75 MG CAP PO SCH (09:00)
--- NOTE | 2023-09-04 11:26 | Hospitalist Progress Note ---
Date of Service September 04, 2023 Assessment & Plan (1) Diverticulitis: Plan: 67yo Female with PMH recurrent diverticulitis, CKD3, NAFLD, fibromyalgia, , mixed connective tissue disease, Chronic regional pain syndrome, RSD, neurogenic bladder without henley, HLD, depression here for concern diverticulitis nonresponsive to outpatient oral abx. Diverticulitis -presumed failure of outpatient abx -has been on flagyl bactrim this month, cipro flagyl and azithromycin since June, Doxycycline last april (some were for sinus infection). States she felt better on abx, then symptoms returned once they stopped -per patient had 12 episodes total -CT A/P: Interval progression of mild acute sigmoid diverticulitis seen on the prior study. No perforation or abscess identified at this time. -In ED received metronidazole -WBC wnl -started on zosyn, feels some improvement -GI consulted, can consider repeat colonoscopy in outpt, switch to PO abx when appropriate, can consider surgical option, consider seeing her neurologist as well given CRPS of note patient has appt with outpt GI in September -ID consulted, may continue zosyn -Bcx negative 48hr -given patient's frequent abx usage, there is a concern for developing abx resistance, with patient history of return of symptoms after abx stops. Difficult to say if there is true abx resistance, no positive blood cultures dating back to 2021 so no sensitivities. At this time will continue with zosyn, will attempt to transition to PO while in hospital under observation -on clear liquid diet, advance diet as tolerated CRPS -continue pregabalin -continue hydroxyzine Reynaud's -continue amlodipine Depression -continue wellbutrin CAD -continue ASA (2) RSD (reflex sympathetic dystrophy): (3) Immunosuppressed status: (4) Depression: (5) HLD (hyperlipidemia): (6) CKD (chronic kidney disease), stage III: (7) Neurogenic bladder: (8) NAFLD (nonalcoholic fatty liver disease): Admission and Anticipated Discharge Date Admission Date: September 02, 2023 Supervising Physician Co-Signing Physician Notes I personally examined the patient and verified wall points of history and exam, discussed case, and agree with decision making and plan documented by Dr. Juarez. Patient with recurrent diverticulitis, improving on IV Zosyn. Will transition to p.o. antibiotics when able. Discussed recommendations for possible colonic resection for area of recurrent infections. Patient concerned about chronic issues with her hands swelling and skin cracking causing infections and ability to maintain colostomy. She has upcoming appointment scheduled with GI outpatient to discuss further. Subjective Patient seen at bedside, anxious, wonders why she keeps getting episodes of diverticulitis, worried oral antibiotics are not working and if she only has IV options, some concern she may have a persistent lingering infection in the fat pad surrounding her sigmoid colon leading to reinfection, some concern of a sinus infection triggering her diverticulitis. Patient states she gets frequent cuts in her fingers along side her raynauds, her fingers often get red and swollen she is concerned for infection frequently uses topical mupirocin. Patient states she is worried if she gets a colostomy she may infect it with her hands during colostomy care. Otherwise pain has improved as of today, tolerating oral intake. Physical Exam Constitutional: well developed and well nourished ENMT: external ear and nose normal, oropharynx normal Respiratory: normal respiratory effort, lungs clear to auscultation Cardiovascular: Rate/Rhythm: regular rate and regular rhythm Heart Sounds: normal S1 and normal S2 Gastrointestinal (Abdomen): Inspection/Auscultation: abdomen normal to inspection Percussion/Palpation: + abdomen tender (diffuse) and abdomen soft Skin: no rashes, warm and dry Results & Data Results & Data Vital Signs (Past 12 Hours) Vital Signs Temp Pulse Resp BP Pulse Ox O2 Del Method 09/04/23 08:01 36.8 C 60 16 134/62 95 Room Air Resident Activity Tracking Resident Involvement: Resident Care Provided Care Provided: Adult Hospital Medicine
--- NOTE | 2023-09-04 13:51 | Communication Note ---
Date of Service: September 04, 2023 Patient seen today, having abdominal pains currently, on IV zosyn for mild diverticulitis, recurrent. has had more than 12 episodes she reports. has been on many courses of abx recently since april 2023. no complications noted on ct and i discussed that with her. recs: can transition to PO abx when improving and follow up with [facility] as outpt Dr. Devi last colonoscopy 2 years ago, consider repeat in 4-6 weeks. perhaps can discuss surgical options as well as an outpatient as she has had many episodes now she says she has RSD, perhaps theres a neurologic component to her abd pains, can see neurology outpt Hawk Cole MD Gastroenterology
[2023-09-04] MEDS ORDERED: amLODIPine BESYLATE 5 MG TAB PO SCH (21:00)
--- NOTE | 2023-09-05 07:22 | Hospitalist Progress Note ---
Date of Service September 05, 2023 Assessment & Plan (1) Diverticulitis: Plan: 67yo Female with PMH recurrent diverticulitis, CKD3, NAFLD, fibromyalgia, , mixed connective tissue disease, Chronic regional pain syndrome, RSD, neurogenic bladder without henley, HLD, depression here for concern diverticulitis nonresponsive to outpatient oral abx. Diverticulitis -presumed failure of outpatient abx -has been on flagyl bactrim this month, cipro flagyl and azithromycin since June, Doxycycline last april (some were for sinus infection). States she felt better on abx, then symptoms returned once they stopped -per patient had 12 episodes total -CT A/P: Interval progression of mild acute sigmoid diverticulitis seen on the prior study. No perforation or abscess identified at this time. -In ED received metronidazole -prn simethecone -WBC wnl -started on zosyn, 09/04 downgraded to IV ceftriaxone and flagyl (patient has concerns of malabsorption with oral abx) -GI consulted, can consider repeat colonoscopy in outpt, switch to PO abx when appropriate, can consider surgical option, consider seeing her neurologist as well given CRPS of note patient has appt with outpt GI in September -ID consulted discussed with ID narrowing abx to IV ceftriaxone and flagly, ID agreed. Suggested given freq bouts of diverticulitis with presumed failure of oral abx, patient may need colorectal surgery referral. -Bcx negative 48hr -given patient's frequent abx usage, there is a concern for developing abx resistance, with patient history of return of symptoms after abx stops. Difficult to say if there is true abx resistance, no positive blood cultures dating back to 2021 so no sensitivities. At this time will continue with IV ceftriaxone and flagyl, will attempt to transition to PO while in hospital under observation -on full liquid diet, advance diet as tolerated Diarrhea -c diff test pending CRPS -continue pregabalin -continue hydroxyzine Reynaud's -continue amlodipine Depression -continue wellbutrin CAD -continue ASA (2) RSD (reflex sympathetic dystrophy): (3) Immunosuppressed status: (4) Depression: (5) HLD (hyperlipidemia): (6) CKD (chronic kidney disease), stage III: (7) Neurogenic bladder: (8) NAFLD (nonalcoholic fatty liver disease): Admission and Anticipated Discharge Date Admission Date: September 02, 2023 Supervising Physician Co-Signing Physician Notes I personally examined the patient and verified wall points of history and exam, discussed case, and agree with decision making and plan documented by Dr. Juarez. Patient with recurrent diverticulitis, has improved on IV Zosyn, transition to ceftriaxone and metronidazole IV. Antibiotics have been reviewed with infectious disease. Yesterday, discussed recommendations for possible colonic resection for area of recurrent infections and reviewed patient's concerned about chronic issues with her hands swelling and skin cracking causing infections and ability to maintain colostomy. Today, patient concerned about possible c diff exposures while hospitalized, she has had 3 bouts of loose stools today, is concerned about diarrhea states that she has urgency and foul smell, stool testing c diff and hemoccult ordered. Patient has upcoming appointment scheduled with GI outpatient to discuss next steps to address recurrent diverticulitis. Subjective Patient seen at bedside. Anxious about lyndon giardia infection from roommate, and of having c diff, had 1 episode loose stool today. States she feels her concerns have not been addressed, worried about frequent hospitalizations, cost, ongoing infections that she may be bringing home. Has concerns of malabsorption, states she has found oral antibiotics in her stool before. Patient understands we are narrowing her antibiotic regime to reduce the change of her getting c diff and to reduce risk of antibiotic resistance. Patient understands her hospitalization is for stabilization, we are not going to be able to fix all her medical conditions while she is in the hospital, she is following outpt gastroenterology cardiology and rheumatology, as well as family medicine. Physical Exam Constitutional: WD/WN, vitals as above Eyes: PERRL, conjunctivae normal, anicteric sclerae ENMT: external ear and nose normal, oropharynx normal Neck: trachea midline, no thyromegaly Respiratory: normal respiratory effort Skin: no rashes, warm and dry Results & Data Results & Data Vital Signs (Past 12 Hours) Vital Signs Temp Pulse Resp BP Pulse Ox O2 Del Method 09/04/23 20:10 36.4 C L 59 L 16 140/64 98 Room Air Resident Activity Tracking Resident Involvement: Resident Care Provided Care Provided: Adult Hospital Medicine
[2023-09-05] MEDS: cefTRIAXone SODIUM 2,000 MG in DEXTROSE 5 % MINI-B 50 ML IV SCH (14:32)
[2023-09-05] MEDS: metroNIDAZOLE 500 MG/100 ML BAG IV SCH (15:07)
[2023-09-05] MEDS: SIMETHICONE 80 MG CHEW PO PRN (20:07)
[2023-09-06 06:37] LABS: Hematocrit (blood only) 36.1 % (37.0-47.0); Hemoglobin 12.2 g/dl (12.0-16.0); Mean Corpuscular Hemoglobin 29.1 pg (25.0-34.0); Mean Corpuscular Hgb Conc 33.8 g/dL (32.0-36.0); Mean Corpuscular Volume 86.2 fL (80.0-100.0); Mean Platelet Volume 9.6 fL (9.4-12.4); Platelet Count 353 K/uL (130-400); RDW Coefficient of Variation 12.8 % (11.5-14.5); RDW Standard Deviation 39.7 fL (36.4-46.3); Red Blood Count 4.19 M/uL (4.20-5.40); White Blood Count 5.78 K/ul (4.8-10.8)
--- NOTE | 2023-09-06 08:10 | Hospitalist Progress Note ---
Date of Service September 06, 2023 Assessment & Plan (1) Diverticulitis: (2) RSD (reflex sympathetic dystrophy): (3) Immunosuppressed status: (4) Depression: (5) HLD (hyperlipidemia): (6) CKD (chronic kidney disease), stage III: (7) Neurogenic bladder: (8) NAFLD (nonalcoholic fatty liver disease): Plan 67yo Female with PMH recurrent diverticulitis, CKD3, NAFLD, fibromyalgia, , mixed connective tissue disease, Chronic regional pain syndrome, RSD, neurogenic bladder without henley, HLD, depression here for concern diverticulitis nonresponsive to outpatient oral abx. Diverticulitis -Presumed failure of outpatient antibiotics -Has been on Flagyl and Bactrim this month, Cipro, Flagyl and azithromycin since June, Doxycycline last April (some were for sinus infection). States she felt better on antibiotics, then symptoms returned once they stopped -CT A/P: Interval progression of mild acute sigmoid diverticulitis seen on the prior study. No perforation or abscess identified at this time. -WBC wnl, blood cultures negative at 48 hours. -Started on Zosyn, 09/04 downgraded to IV ceftriaxone and Flagyl (patient has concerns of malabsorption with oral abx) -GI consulted, can consider repeat colonoscopy in outpatient, switch to PO antibiotics when appropriate, can consider surgical option, consider seeing her neurologist as well given CRPS of note patient has appt with outpatient GI in September -ID consulted: discussed with ID narrowing antibiotics to IV ceftriaxone and Flagyl. Suggested given freq bouts of diverticulitis with presumed failure of oral abx, patient may need colorectal surgery referral. -given patient's frequent abx usage, there is a concern for developing abx resistance, with patient history of return of symptoms after abx stops. Difficult to say if there is true abx resistance, no positive blood cultures dating back to 2021 so no sensitivities. At this time will continue with IV ceftriaxone and Flagyl, will plan for transition to PO antibiotics at time of discharge per ID recommendations. -Advanced diet from Full Liquid to regular- patient was able to tolerate eating mashed potatoes for lunch Diarrhea -C diff test negative -Patient reports her previous roommate in the hospital had Giardia, is concerned about having contracted this CRPS -continue pregabalin -continue hydroxyzine Reynaud's -continue amlodipine Left Sided Renal Cyst -Reviewed urology note from [place], was planning for MRI w/o contrast of her left kidney to further investigate this newer finding of renal cyst -Also was noted to have a small left sided renal stone on prior imaging Depression/Anxiety -continue Wellbutrin -This afternoon had increased concerns and worries about future medical treatment/her current conditions. Patient also experienced some bilateral facial numbness and shoulder/back pain, neurologic exam was reassuring. -Encouraged patient to focus one day at a time -Discussed trying a one time short-acting medication to try to decrease her current anxiety, patient was agreeable. Ordered Ativan 0.5mg PO. CAD -continue ASA Admission and Anticipated Discharge Date Admission Date: September 02, 2023 Supervising Physician Co-Signing Physician Notes I personally examined the patient and verified all wall points of history and exam, discussed case, and agree with decision making with Dr Roy sleeping comfortably whenever I see her. Due to anxiety attack earlier, and subsequent lorazepam, allowed patient to sleep. Infectious disease input appreciated. Vitals noted, in general she is resting comfortably appears to be in no distress. Breathing unlabored no accessory muscle use good effort. No lateralizing signs. Diverticulitiscontinue antibiotics. Close outpatient follow-up. Hopefully home soon. Otherwise as above Subjective No overnight events reported, patient seen and examined at bedside. This morning patient notes he has been drinking adequate fluids, notes that prior to her admission she had only been eating baby food and mashed potatoes for about two weeks. States that she continues to have abdominal pain, mainly at left lower quadrant although now notes some left sided back pain and recalls that she has a known left sided kidney stone. She inquires about whether she can have imaging of her kidney- she recently saw a urologist at [place] and was planning to have a MRI of her kidney due to an identified cyst and renal stone at the left kidney. This morning she continues to have some episodes of diarrhea and also has seen some red "streaks" at her inner thighs (denies itching or pain with this). This afternoon, was notified by nursing that patient was tearful and had concern of numb sensation at her face as well as back/shoulder pain. Nursing had completed a stroke assessment which was unchanged from earlier in the day. I went to bedside and assessed the patient- no focal defects were noted during exam but she was very tearful and expressed many of her concerns for the future and her recurrent hospitalizations. Review of Systems Review of Systems: As per above Physical Exam Constitutional: WD/WN, vitals as above Eyes: + anicteric sclerae; no conjunctival abn ormality ENMT: Ears: no external ear abnormality Nose: no external nose abnormality Moist mucous membranes Respiratory: normal respiratory effort, lungs clear to auscultation Cardiovascular: Rate/Rhythm: regular rate and regular rhythm Extremities: no edema Gastrointestinal (Abdomen): Inspection/Auscultation: + hyperactive bowel sounds Percussion/Palpation: + abdomen tender and abdomen soft; abdomen not rigid Musculoskeletal: Moves all limbs independently. Left sided CVA tenderness. Skin: Few small erythematous flat, linear spots at inner right and left thigh. Neurologic: no focal motor deficits Psychiatric: A+Ox3, euthymic affect Results & Data Results & Data Vital Signs (Past 12 Hours) Vital Signs Temp Pulse Resp BP Pulse Ox O2 Del Method 09/06/23 06:54 36.5 C 57 L 18 124/74 97 Room Air Resident Activity Tracking Resident Involvement: Resident Care Provided Care Provided: Adult Hospital Medicine
--- NOTE | 2023-09-06 09:03 | Infectious Disease Progress Nt ---
Date of Service September 06, 2023 Assessment & Plan (1) Diverticulitis: (2) Acute abdominal pain: (3) Failure of outpatient treatment: (4) History of Clostridioides difficile colitis: (5) History of penicillin allergy: (6) CKD (chronic kidney disease), stage III: Plan Patt Alexander is a 67yo F with h/o recurrent diverticulitis of the sigmoid colon (multiple episodes in the past, most recently s/p cipro/flagyl given on 07/26/23, then recurrence early 08/2023 and tx Bactrim/flagyl CTAP 08/23 with early acute diverticulitis), CKD II-III, atopic dermatitis, mechanics hands with c/f mixed connective tissue disease (was never on Plaquenil as noted in chart confirmed with patient, patient following rheum), NAFLD, CAD, depression, neurogenic bladder (no chronic henley), C. diff infection 2011, reported allergy to penicillin/amoxicillin and Keflex (hard rash on arm) but tolerated Zosyn, who presented to [facility] on 09[facility]01 with increased abdominal pain despite PO abx with Bactrim/flagyl. She was seen in ED on 07/26 with dx of diverticulitis and was discharged on cipro/flagyl x 14 days. Sigmoid resection has been previously discussed and she has refused. Here, she has been afebrile, BP stable. WBC wnl. Cr 1.15. LFT wnl. UA negative. BCx in process. CTAP w/o contrast with interval progression of mild acute sigmoid diverticulitis, no perforation or abscess; left nephrolithiasis without hydro. ID consulted on 09/02 for diverticulitis. The patient has longstanding recurrent diverticulitis. Per GI consultation here, she should continue to follow with her outpatient GI group to discuss colonoscopy and potentially colorectal surgery (which pt has previously declin ed). For now, will continue management with antibiotics. Is overall doing well on abx (pip-tazo -> ceftriaxone) and afebrile with normal WBC count, reassuring against complications at this time. Reported allergy to penicillin/amoxicillin and Keflex (hard rash on arm) but tolerated both pip-tazo and ceftriaxone this admission. Would continue on ceftriaxone and metronidazole while inpatient, and if improving and discharging can transition to ciprofloxacin and metronidazole to complete a 10-day course. QTc of 413 on 09/01. If clinical worsening (e.g., fevers, worsening leukocytosis, abdominal pain, hemodynamic instability), would obtain CT A/P with IV contrast for further evaluation. If she develops loose stools, would send stool studies including C. diff and GI pathogen panel. Would ensure close follow-up with PCP and GI post- discharge. ID Problem List: 1. Recurrent sigmoid diverticulitis 2. CKD 3. NAFLD 4. History of prior C diff 5. Penicillin and cephalosporin allergy (hard rash on arm) but tolerated both pip-tazo and ceftriaxone this admission 08/2023 Recommendations: - Continue ceftriaxone and metronidazole while inpatient - If improving and will be discharging, can transition to ciprofloxacin 500 mg PO BID and metronidazole 500 mg PO BID to complete a 10-day course (09/0109/11/23) - If clinical worsening (e.g., fevers, worsening leukocytosis, abdominal pain, hemodynamic instability), would obtain CT A/P with IV contrast for further evaluation - Per GI, she should continue to follow with her outpatient GI group to discuss colonoscopy and potentially colorectal surgery (which pt has previously declined) - Close follow-up with PCP and GI post-discharge - F/u 09/01 BCx until finalized to ensure negative Plan discussed with hospitalist. Thank you for letting ID participate in the care of this patient. ID will sign off at this time. If questions, please contact the [facility] call center at [phone]. Kimmy Garsia MD, M[facility] Infectious Diseases [facility] direct line: [phone] Admission and Anticipated Discharge Date Admission Date: September 02, 2023 Subjective This patient recommendation is based on a telemedicine consult request which was completed asynchronously through chart review and information provided by the primary physician. The patient was not seen or examined today. The evaluation is consultative in nature and all patient care and treatment decisions can either be accepted or rejected by the patient's primary hospital-based treating physician using their own independent medical judgment for their patient. Time Spent Reviewing Chart: 31+ minutes - Afebrile, WBC 5.78 Results & Data Vital Signs (Past 12 Hours) Vital Signs Temp Pulse Resp BP Pulse Ox O2 Del Method 09/06/23 06:54 36.5 C 57 L 18 124/74 97 Room Air Diagnostic Findings Diagnostics: 09/01 CT A/P 1. Interval progression of mild acute sigmoid diverticulitis seen on the prior study. No perforation or abscess identified at this time. 2. Left-sided nephrolithiasis. No hydronephrosis. 3. Additional findings as described above. Micro Summary: 09/01 BCX: NGTD Antibiotic Summary: Ceftriaxone (09/01, 09/04 present) metronidazole (09/04 present) prior Zosyn 09/01-
[2023-09-06] MEDS: ADVANCED PROBIOTIC 625 MG CAPSULE PO SCH (09:24)
[2023-09-06] MEDS: LORazepam 0.5 MG TAB PO STA (14:53)
--- NOTE | 2023-09-06 19:26 | Billing Data ---
Date of Service September 06, 2023 Coding Level of Care Code 63256 SUB INP/OBS CARE 07/08MIN
[2023-09-06] MEDS: FAMOTIDINE 20 MG TAB PO ONE (22:19)
--- NOTE | 2023-09-07 07:30 | Hospitalist Progress Note ---
Date of Service September 07, 2023 Assessment & Plan (1) Diverticulitis: (2) RSD (reflex sympathetic dystrophy): (3) Immunosuppressed status: (4) Depression: (5) HLD (hyperlipidemia): (6) CKD (chronic kidney disease), stage III: (7) Neurogenic bladder: (8) NAFLD (nonalcoholic fatty liver disease): Plan 67yo Female with PMH recurrent diverticulitis, CKD3, NAFLD, fibromyalgia, , mixed connective tissue disease, Chronic regional pain syndrome, RSD, neurogenic bladder without henley, HLD, depression here for concern diverticulitis nonresponsive to outpatient oral abx. Diverticulitis -Presumed failure of outpatient antibiotics -Has been on Flagyl and Bactrim this month, Cipro, Flagyl and azithromycin since June, Doxycycline last April (some were for sinus infection). States she felt better on antibiotics, then symptoms returned once they stopped -CT A/P: Interval progression of mild acute sigmoid diverticulitis seen on the prior study. No perforation or abscess identified at this time. -WBC wnl, blood cultures negative at 48 hours. -Started on Zosyn, 09/04 downgraded to IV ceftriaxone and Flagyl (patient has concerns of malabsorption with oral abx) -GI consulted, can consider repeat colonoscopy in outpatient, switch to PO antibiotics when appropriate, can consider surgical option, consider seeing her neurologist as well given CRPS of note patient has appt with outpatient GI in September -ID consulted: discussed with ID narrowing antibiotics to IV ceftriaxone and Flagyl. Suggested given freq bouts of diverticulitis with presumed failure of oral abx, patient may need colorectal surgery referral. -given patient's frequent abx usage, there is a concern for developing abx resistance, with patient history of return of symptoms after abx stops. Difficult to say if there is true abx resistance, no positive blood cultures dating back to 2021 so no sensitivities. At this time will continue with IV ceftriaxone and Flagyl, will plan for transition to PO antibiotics at time of discharge per ID recommendations. -Advanced diet from Full Liquid to regular- patient was able to tolerate eating mashed potatoes for lunch Diarrhea -C diff test negative -Patient reports her previous roommate in the hospital had Giardia, is concerned about having contracted this CRPS -continue pregabalin -continue hydroxyzine Reynaud's -continue amlodipine Left Sided Renal Cyst -Reviewed urology note from [place], was planning for MRI w/o contrast of her left kidney to further investigate this newer finding of renal cyst -Also was noted to have a small left sided renal stone on prior imaging Depression/Anxiety -continue Wellbutrin -This afternoon had increased concerns and worries about future medical treatment/her current conditions. Patient also experienced some bilateral facial numbness and shoulder/back pain, neurologic exam was reassuring. -Encouraged patient to focus one day at a time -Discussed trying a one time short-acting medication to try to decrease her current anxiety, patient was agreeable. Ordered Ativan 0.5mg PO. CAD -continue ASA Admission and Anticipated Discharge Date Admission Date: September 02, 2023 Subjective Patient seen and examined at bedside. Overnight patient had some sensation of tingling around her lips. Review of Systems Review of Systems: As per above Physical Exam Constitutional: WD/WN, vitals as above Eyes: + anicteric sclerae; no conjunctival abn ormality ENMT: Ears: no external ear abnormality Nose: no external nose abnormality Respiratory: normal respiratory effort, lungs clear to auscultation Cardiovascular: Rate/Rhythm: regular rate and regular rhythm Extremities: no edema Gastrointestinal (Abdomen): Inspection/Auscultation: + hyperactive bowel sounds Percussion/Palpation: + abdomen tender and abdomen soft; abdomen not rigid Neurologic: no focal motor deficits Psychiatric: A+Ox3, euthymic affect Results & Data Results & Data Vital Signs (Past 12 Hours) Vital Signs Temp Pulse Resp BP Pulse Ox O2 Del Method 09/06/23 19:47 36.4 C L 62 16 144/77 H 98 Room Air
[2023-09-07 07:31] LABS: Basophils # (auto) 0.03 K/uL (0.00-0.20); Basophils % (auto) 0.6 %; Hematocrit (blood only) 37.4 % (37.0-47.0); Hemoglobin 12.2 g/dl (12.0-16.0); Immature Granulocytes # (auto) 0.01 K/uL (0.01-0.20); Immature Granulocytes % (auto) 0.2 %; Lymphocytes # (auto) 2.07 K/uL (1.20-3.40); Lymphocytes % (auto) 41.1 %; Mean Corpuscular Hemoglobin 28.6 pg (25.0-34.0); Mean Corpuscular Hgb Conc 32.6 g/dL (32.0-36.0); Mean Corpuscular Volume 87.8 fL (80.0-100.0); Mean Platelet Volume 9.6 fL (9.4-12.4); Monocytes # (auto) 0.34 K/uL (0.11-0.59); Monocytes % (auto) 6.7 %; Neutrophils # (auto) 2.39 K/uL (1.40-6.50); Neutrophils % (auto) 47.4 %; Platelet Count 330 K/uL (130-400); RDW Coefficient of Variation 13.1 % (11.5-14.5); RDW Standard Deviation 41.1 fL (36.4-46.3); Red Blood Count 4.26 M/uL (4.20-5.40); White Blood Count 5.04 K/ul (4.8-10.8)
[2023-09-07 07:42] LABS: Albumin Globulin Ratio 1.5 (0.9-2); Albumin Level 3.8 gm/dl (3.4-5.0); BUN Creatinine Ratio 7.4 (10-20); Bilirubin,Total 0.3 mg/dl (0.2-1.0); Creatinine Clr Calc Pharmacy 53.7 ml/min; Est GFR (African American) 73.3 ml/min; Est GFR (Non-African American) 63.2 ml/min; Globulin 2.5 gm/dl (2.5-4.0); Phosphorus 3.4 mg/dl (2.5-4.9); Potassium 3.8 mmol/L (3.5-5.1); Total Protein 6.3 gm/dl (6.0-8.3)
--- NOTE | 2023-09-07 17:50 | Discharge Summary ---
Date of Service September 07, 2023 Admission HPI Per Admitting Provider This is a 67-year-old female who has a history of recurrent diverticulitis of the sigmoid colon. She has been having an episode flare for about the last 6 or 8 weeks she has had multiple rounds of oral antibiotic therapy including multiple rounds of Flagyl multiple rounds of Cipro and Bactrim. The patient was having increased pain. She has not felt well in 6 weeks she presents today for further evaluation and treatment. CAT scan shows acute sigmoid: Diverticulitis. Her labs are reassuring however. Lactic acid was ordered and when we excepted the patient it is pending. And blood cultures were ordered. The patient has multiple antibiotic allergies as listed. We went through those with her. The patient confirms she has had Zosyn when she has failed all oral antibiotics in the past and has responded well to that. Therefore we are going to place her on Zosyn. In addition we talked to her about the possibility of a sigmoid colon resection electively. She is refused it multiple times in past. Past medical history: Atopic dermatitis, carotid artery disease, CKD stage II- III, depression, dyslipidemia, history of immunosuppressed state was on Plaquenil for an extended period of time, nonalcoholic fatty liver disease, reflex sympathetic dystrophy, recurrent diverticulitis due to diverticulosis. Past surgical history colonoscopy, cataract surgery cholecystectomy, carpal tunnel surgery, eye surgery, lumbar spine epidural injections. Social history patient is lives with her she denies use of alcohol tobacco or illicit street drugs she was a smoker to the age of 31. She has 2 adult children. 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 Family medical history: Obtained and noncontributory. CODE STATUS full code I personally spoke with the patient. Admission Exam Per Admitting Provider 67yo Female with PMH recurrent diverticulitis, CKD3, NAFLD, fibromyalgia, , mixed connective tissue disease, Chronic regional pain syndrome, RSD, neurogenic bladder without henley, HLD, depression admitted for diverticulitis nonresponsive to outpatient oral abx. Diverticulitis -Presumed failure of outpatient antibiotics -CT A/P: Interval progression of mild acute sigmoid diverticulitis seen on the prior study. No perforation or abscess identified at this time. -WBC wnl, blood cultures negative. -Started on Zosyn, 09/04 downgraded to IV ceftriaxone and Flagyl (patient has concerns of malabsorption with oral abx) -GI consulted: can consider repeat colonoscopy in outpatient, can consider surgical option, consider seeing her neurologist as well given CRPS of note patient has appt with outpatient GI in September -ID consulted: discussed with ID narrowing antibiotics to IV ceftriaxone and Flagyl. Suggested given freq bouts of diverticulitis with presumed failure of oral abx, patient may need colorectal surgery referral. -Patient repeatedly expresses opposition to colorectal surgery due to no surgeons having experience with patients with CRPS -Received IV ceftriaxone and Flagyl, and transitioned to PO antibiotics at time of discharge per ID recommendations (cipro, metronidazole for 4 additional days) -Patient tolerating regular diet with solid food at time of discharge -Discussed that although pain has improved, it is not unexpected for her to continue to have abdominal pain with certain movements/eating some food, etc. as her colon recovers from this infection. -Also discussed with patient that other factors including constipation and increased anxiety can also contribute to her abdominal pain, and it is important for her to be proactive with a regular bowel regimen of Miralax as well as to be realistic with expectations that being 100% abdominal pain free given her chronic conditions unfortunately may not be the reality. -Strongly encouraged patient to allow a team based approach to her medical care by allowing her PCP to "quarterback" her care with specialists Diarrhea -C diff test negative -Patient reports her previous roommate in the hospital had Giardia, was concerned about having contracted this. However her diarrhea had improved to more formed stool by day of discharge CRPS -continue pregabalin -continue hydroxyzine Reynaud's -continue amlodipine Left Sided Renal Cyst -Reviewed urology note from [facility], was planning for outpatient MRI w/o contrast of her left kidney to further investigate this newer finding of renal cyst -Also was noted to have a small left sided renal stone on prior imaging -No indication to complete this during admission Depression/Anxiety -continue Wellbutrin -During admission, patient had episodes of heightened anxiety/panic due to her worries about future medical treatment/her current conditions. Patient also experienced some bilateral facial numbness and shoulder/back pain, neurologic exam was reassuring. Her symptoms could be attributed to both panic/anxiety as well as headache/?atypical migraine CAD -continue ASA Principal Diagnosis Diverticulitis Discharge Exam Constitutional WD/WN, vitals as above ENMT Ears: no external ear abnormality Nose: no external nose abnormality Moist mucous membranes Respiratory normal respiratory effort, lungs clear to auscultation Cardiovascular Rate/Rhythm: regular rate and regular rhythm Extremities: no edema Gastrointestinal (Abdomen) Abdomen soft, not rigid. Some tenderness at LLQ Skin no rashes, warm and dry Psychiatric A+Ox3, euthymic affect Discharge Data Allergies Allergy/AdvReac Type Severity Reaction Status Date / Time Iodinated Contrast Media Allergy Severe Anaphylaxis Verified 09/02/23 15:12 cephalexin [From Keflex] Allergy Intermediate HARD Verified 09/02/23 15:12 REDDENED, FRANCISCO-LIKE AREA ON ARM AFTER PO DOSE Latex, Natural Rubber Allergy Intermediate ITCHY RASH Verified 09/02/23 15:12 nickel Allergy Intermediate ITCHY RASH Verified 09/02/23 15:12 Penicillins Allergy Intermediate HARD Verified 09/02/23 15:12 REDDENED, FRANCISCO-LIKE AREA ON ARM AFTER PO DOSE. amoxicillin [From Augmentin] Allergy Mild HARD Verified 09/02/23 15:12 REDDENED, FRANCISCO-LIKE AREA ON ARM AFTER PO DOSE clavulanic acid Allergy Mild HARD Verified 09/02/23 15:12 [From Augmentin] REDDENED, FRANCISCO-LIKE AREA ON ARM AFTER PO DOSE lidocaine AdvReac Severe INFUSION--S Verified 09/02/23 15:12 EIZURE prochlorperazine AdvReac Intermediate MUSCLE Verified 09/02/23 15:12 [From Compazine] SPASMS THAT CAUSED NECK TO CONTORT Consultations 09/02/23 14:36 ED Decision to Admit Stat 09/03/23 09:35 Consult Infectious Diseases Routine 09/03/23 09:36 Consult Gastroenterology Routine Ordered Studies 09/02/23 11:47 CT abd pelvis wo con Stat Hospital Course (1) Diverticulitis: (2) RSD (reflex sympathetic dystrophy): (3) Immunosuppressed status: (4) Depression: (5) HLD (hyperlipidemia): (6) CKD (chronic kidney disease), stage III: (7) Neurogenic bladder: (8) NAFLD (nonalcoholic fatty liver disease): Total Time Total Time Spent Total Time Spent (In Minutes): <30 Discharge Plan Discharge Items Patient Disposition: Home - Self-Care Reason For Visit: DIVERTICULITIS, FAILURE OF OUTPATIENT TREATMENT Discharge Diagnosis: diverticultitis, improving Activity: Resume your previous activity Non-emergency contact: Primary Care Provider and Specialist Call non-emergency contact if: you have any medication questions and your symptoms worsen Follow-up/Referrals: Serena Torres, [Primary Care Provider] - 09/22/23 2:25 pm Diet: Regular Addtl Attending Provider Instructions: resume your regular diet follow closely with your family doc in addition to your specialists your next dose of antibiotics will be at bedtime tonight Pending Studies at Discharge: No Stand-Alone Forms: My [facility], Smoking Cessation Medications and DC Order Prescriptions: New ciprofloxacin HCl [Cipro] 500 mg tablet 500 mg PO BID Qty: 9 0RF metronidazole 500 mg tablet 500 mg PO BID Qty: 9 0RF Continued hydroxyzine HCl 10 mg tablet 10 mg PO DAILY polyethylene glycol 3350 [Miralax] 17 gram/dose powder 8.5 g PO BID PRN (Reason: Constipation) aspirin 81 mg capsule 81 mg PO DAILY cholecalciferol (vitamin D3) 50 mcg (2,000 unit) capsule 50 mcg PO DAILY mecobalamin (vitamin B12) 500 mcg tablet,chewable 500 mcg PO Q OTHER DAY vitamin B complex Tablet 1 tab PO Q OTHER DAY Rx Instructions: alternates with b12 qod mupirocin 2 % ointment 1 applic TOPICAL TID PRN (Reason: Open Wounds) bupropion HCl 150 mg tablet extended release 24 hr 150 mg PO TID vitamin B56-ihgng acid 0.5-1 mg Tablet 1 tab PO Q OTHER DAY pregabalin 75 mg capsule 75 mg PO TID amlodipine 2.5 mg tablet See Rx Instructions .ROUTE .COMPLEX Rx Instructions: TAKES 5 MG QAM, THEN 2.5 MG QPM. betamethasone, augmented 0.05 % ointment 1 applic TOPICAL BID Rx Instructions: Alternates w/ Clobetasol ointment every other day clobetasol 0.05 % ointment 1 applic TOPICAL BID Rx Instructions: Alternates w/ Betamethasone ointment every other day Compound Ointment 1 applic topical QID Rx Instructions: EDGARDO 10/DIC 6/CYC 4/TET 4/KET 10% ascorbic acid (vitamin C) [Vitamin C] 500 mg Tablet 500 mg PO DAILY Discharge Orders: Discharge Order (Routine); Ordered 09/07/23 Ordered By: Escobar Delgado Admission Data Admit Date/Time: 09/02/23 22:34 Attending Provider: Escobar Delgado Provider: Shaun Blanco Primary Care Provider: Serena Torres Other Providers: Shaun Blanco; Josie Shelley; Liliana Alvarez; Melva Coats; Nivia Johnson; Guerita Valadez; Franc Lackey; Emily Rodriguez; Kimmy Garsia; Beatriz Fagan; Walt Brandon; Shweta Rios; Makenzie Fang; Fabby Mckeon; Mary Kim; Hawk Cole; Addison Rviera; Sander Segovia; Sam Campa; Jennifer Diaz; Dilma Pierre; Vane Che; Desiree Mulligan; Cristine Sharma; Cassandra Kimble; J Carlos Oreilly; Juarez Blackburn; Marj Del Castillo; Prabha Devi Jr Other Interventions: Discharge Summary Assessment (RN) Last Done: 09/07/23 13:49 Supervising Physician Co-Signing Physician Notes I personally examined the patient and verified all wall points of history and exam, discussed case, and agree with decision making with Dr Roy felling feeling better. Ate breakfast well. Feels up to going home. Discussed outpatient follow-up. Vitals noted, in general she is awake and alert pleasant no distress. HEENT normocephalic atraumatic mucous membranes moist. Breathing unlabored no accessory muscle use good effort. Skin shows no rashes no pallor or icterus. Neuro without focal deficits. Recurrent diverticulitissafe/stable for home. P.o. antibiotics. Outpatient PCP, GI, and colorectal surgery follow-up. Otherwise as above.
--- NOTE | 2023-09-07 19:18 | Billing Data ---
Date of Service September 07, 2023 Coding Level of Care Code 67430 IN/OBS DISCH 30 MIN/LESS
== END 2023-09-07 15:39 | disposition home or self-care (01) | DRG 392 ==
LOC: ED 11:27 → 3W 22:34 → SUATTDRO 22:34 → 3W 23:41

== ENCOUNTER 2024-04-05 13:13 | Observation (INO) ==
--- NOTE | 2024-04-05 13:26 | ED Triage Note ---
Date of Service April 05, 2024 Provider in Triage Author: William Gonzalez History of Present Illness This patient was briefly evaluated while in triage. An abbreviated physical exam was performed. This patient is a 68-year-old Female who presents to the ED for evaluation of pain in head, ears. Notes is intermittent and traveling. Jaw, ear, head, lip, teeth at times. Also feels like left side of face is "asleep". Noticed just before coming in. Notes diarrhea as well. Here on the 14 and dx with rhinovirus and on cipro and metronidazole for abdominal coverage. th stabbing pain in right ear, th intermittent abd pain, and then diarrhea and flatulance. Diarrhea continued. Physical Exam GENERAL: 68 year old female. In no acute distress. SKIN: No lesions or rashes. HEART: Regular rate and rhythm. LUNGS: Clear to auscultation. ABDOMEN: Bowel sounds normoactive. No guarding or rigidity. No tenderness of palpation. NEURO: Alert and oriented. No deficits. MUSCULOSKELETAL: No deformities to inspection of the extremities. PSYCH: Patient is pleasant and answers all questions appropriately. Initial orders for labs and / or imaging were placed and patient was placed in the waiting area until a bed is available. Please see further documentation for the full ED course.
--- NOTE | 2024-04-05 14:00 | CT Scan Report ---
CT head/brain wo con CLINICAL HISTORY: Head/face pain Technique: Contiguous axial CT images of the head were acquired from the base of the skull to the golden haily without intravenous contrast administration. Images were viewed in brain, subdural and bone [facility]. Automated dose lowering techniques and/or adjustment according to patient size were utilized for this exam. Comparison: Comparison is made to CT head 07/26/2023 Findings: The ventricles, basal cisterns, and cerebral sulci are normal. There is no acute intracranial hemorrh age or evidence of acute territorial infarction. Neither mass effect, shift of the midline structures , nor abnormal extra-axial fluid collections are shown. Imaged portions of the paranasal sinuses and mastoid air cells are clear. The orbits appear normal. There are no acute fractures of the calvaria or scalp swelling. Impression: No acute intracranial hemorrhage, no evidence of acute territorial infarction or other acute intracra nial disease process. ACT 112: Negative or not required by law. Electronically signed by: Feliciano Luis M.D. 04/05/2024 1:58 PM
--- NOTE | 2024-04-05 14:40 | Emergency Department Note ---
Impression & Plan Diverticulitis, Facial pain, Facial paresthesia, Diarrhea ED Provider Note CHIEF COMPLAINT: Right ear pain, headache HISTORY OF PRESENTING ILLNESS: This 68-year-old female patient presents to the emergency department with her for evaluation of right ear pain and a headache since this morning. The patient states that 1 minute the pain is in her ear and the next minute is in her head and then it will go to her jaw and then her teeth. Sometimes feels like the left side of her face is asleep, but not always. The patient was seen here 2 weeks ago and diagnosed with rhinovirus and diverticulitis. The patient has had continued diarrhea and nausea for the past 4 days. Her stools are starting to thicken up today, but much smaller and softer than her normal BMs. She finished her antibiotics yesterday. She has been taking Zofran with mild improvement of her symptoms. The patient states that when she gets sinus infections she tends to have the above symptoms. She has a history of trigeminal nerve pain as well. She has a family history of MS. Upon review of the patient's records, she was seen in the ER on 03/27/2024 for 4 days of urinary urgency and decreased urinary output. Respiratory BioFire was positive for rhinovirus, urinalysis was questionable for infection. Laboratory studies without acute abnormalities. CT scan of the abdomen and pelvis without acute abnormalities. On clinical exam there was concern for possible early diverticulitis and the patient was started on Cipro and Flagyl to cover for possible diverticulitis as well as a possible early UTI. REVIEW OF SYSTEMS: See HPI for pertinent positives and pertinent negatives. ALLERGIES: IV contrast dye, Keflex, PCN, Augmentin, Latex, Nickel, Lidocaine, Compazine MEDICATIONS: See below PAST MEDICAL HISTORY: See below PHYSICAL EXAM: VITALS: Vitals are noted on the nurse's note and reviewed by myself. GENERAL: No acute distress, non-diaphoretic. SKIN: No obvious abnormal rashes or skin lesions noted. Capillary reflex less than 2 seconds. HEAD: No scalp tenderness. No step-offs felt. EARS: Bilateral external auditory canals clear. Bilateral tympanic membranes with a slight amount of serous effusion without bulging. No erythema of the tympanic membranes bilaterally. No hemotympanum. No moon sign. No mastoid tenderness. EYES: Pupils equal round and reactive to light and accommodation. Conjunctivae without injection, sclerae without icterus. Extraocular movements intact without pain. No nystagmus. NOSE: Patent, turbinates without inflammation or discharge. No sinus tenderness. All sinuses transilluminate fully. No septal hematoma or bleeding. FACE: The patient has a slight asymmetric grimace with downsloping of the right side of the upper lip. However, when she smiles, there is no abnormality of the right lip. She has slight intermittent ptosis on the left side, but not persistent. She is able to move her forehead muscles equally and there is no flattening of the forehead lines. No obvious facial droop otherwise. No facial bone tenderness. Full range of motion of the jaw without tenderness. MOUTH: Mucous membranes moist. Uvula midline. Airway patent. Tongue does not deviate. NECK: Supple without nuchal rigidity. Cervical spine is nontender. Full range of motion of the neck without tenderness and normal strength. HEART: Regular rate and rhythm without murmurs gallops or rubs. LUNGS: Clear to auscultation bilaterally without wheezes, rales or rhonchi. No retractions or accessory muscle use. No chest wall tenderness. ABDOMEN: Positive bowel sounds x 4. Normal tympanic percussion. Soft, nontender, without masses or organomegaly. No guarding or rebound tenderness. MUSCULOSKELETAL: No tenderness of the thoracic or lumbar spine or paraspinal muscles. Full range of motion of the bilateral upper and lower extremities. Strength 5/5 and equal bilaterally in the upper and lower extremities. Peripheral pulses 2+ and equal in the bilateral upper and lower extremities. NEURO: Patient was alert and oriented to person place and time. Normal mental status exam. Normal sensation to light and sharp touch. Negative pronator drift. Cerebellar function intact. No focal neurological deficits. DIFFERENTIAL DIAGNOSIS: Differential diagnosis includes CVA, TIA, Lyme disease, trigeminal neuralgia, MS, sinus infection, ear infection, electrolyte abnormality, anemia, dehydration, UTI, acute intracranial bleed, acute intracranial mass, or others. ED COURSE AND MEDICAL DECISION MAKING: HISTORY FROM INDEPENDENT HISTORIAN: Additional history obtained from the patient's MEDICATIONS GIVEN: 500 mL normal saline solution bolus. Tylenol 1000 mg IV. Pepcid 20 mg IV. Zofran 4 mg IV. INTERPRETATION OF LABS: I interpreted the labs with full lab results as below in the lab section of this note. Pertinent lab results discussed in the MDM section below. INTERPRETATION OF IMAGING: Imaging studies were interpreted by myself and read by radiology as per the imaging section of this note. CT scan of the head without contrast was negative for acute intracranial hemorrhage or other acute intracranial abnormalities. CT scan of the abdomen pelvis without contrast showed possible minimal diverticulitis without evidence of perforation or abscess formation. EXTERNAL RECORDS REVIEWED: I reviewed the patient's previous visit as summarized above. CHRONIC MEDICAL/SOCIAL CONDITIONS AFFECTING CARE: Multiple medication allergies as well as multiple chronic medical conditions. CONSULTATIONS: Dr. Mccrary of neurology. On-call hospitalist MDM SUMMARY: The patient was seen during a time of extreme volume and extreme acuity. Nursing triage protocols were initiated with IV lock, labs, and/or imaging studies conducted by protocol in the triage area. The patient was initially evaluated in a triage room and then re-evaluated once they were taken back to an exam room. The patient was seen in the emergency department on 03/27/2024 and diagnosed with a possible early UTI and possible early diverticulitis by clinical exam. She was also diagnosed with rhinovirus. She was started on Cipro and Flagyl. She finished the antibiotics yesterday. She did develop some diarrhea on the antibiotics, but her stools are starting to thicken up today. However, approximately 1 hour prior to arrival she developed some pain in the right ear that moved to the left side of her face, then to the right side of her face, then into her jaw, and then into her neck. She was also having episodes of intermittent numbness and tingling into her face. No trouble with her speech. No obvious facial droop. No obvious weakness of her arms or legs. No numbness or tingling into her arms or legs. The patient does have a history of trigeminal neuralgia. She has a family history of MS. The patient states that she has an appointment with her neurologist through [facility] next week. The patient was independently evaluated by Dr. Bello, who agrees with my assessment and treatment plan. The patient has a somewhat asymmetric grimace with downsloping of the right side of the upper lip, however, when she smiles, there is no deformity or abnormality of the lip. She has slight intermittent ptosis of the left upper eyelid, but it is not persistent or predictable. No other evidence for facial droop or Mixon palsy on exam. The patient has normal speech. Normal sensation to light and sharp touch of the face at the time of my exam. Normal range of motion and strength of the bilateral upper and lower extremities. We do not feel the patient's symptoms are consistent with an acute stroke at this time. The patient has mild serous effusion on the bilateral ears, but no otitis media. No sinus tenderness and her sinuses transilluminate fully. CBC, CMP, magnesium, lipase, and Lyme disease screen were normal. Urinalysis appears contaminated rather than infected with urine culture pending. CT scan of the head without contrast was negative for acute intracranial hemorrhage or other acute intracranial abnormalities. The patient was given 500 mL normal saline solution bolus, Tylenol 1000 mg IV, Pepcid 20 mg IV, and Zofran 4 mg IV with improvement of her symptoms initially. Additional IV fluids were held at this time due to the severe shortage of IV fluids. Initially, the patient was only complaining of the facial symptoms and diarrhea from the antibiotic. The patient is unable to have CTA of the head and neck due to her anaphylaxis to IV contrast. After discussion with Dr. Bello, I spoke with Dr. Mccrary of neurology who did not feel the patient's symptoms were suggestive of an acute intracranial/neurologic etiology requiring emergent intervention. He stated the patient could have an outpatient MRI of the brain for further evaluation. However, if based on our exam we were concerned, the patient could have an MRI prior to discharge. Low suspicion for acute neurologic etiology requiring emergent MRI so MRI was held in the ER at this time. On recheck of the patient, she stated that she has now developed abdominal pain that became worse after having a bowel movement. The patient was able to give a stool sample in the emergency department of a small amount of flaky and soft stool with some liquid stool. The patient states that she has had continued intermittent abdominal pain since finishing the antibiotics for her diverticulitis. C. difficile was negative, but stool bio fire is still pending because the patient was unable to give enough stool for both tests. CT scan of the abdomen pelvis without contrast showed possible minimal diverticulitis without evidence of perforation or abscess formation. The patient has been treated with Cipro/Flagyl as an outpatient for her diverticulitis. She is allergic to Augmentin, penicillin, and Keflex. Therefore, with the failure of the outpatient Cipro/Flagyl and multiple medication allergies, we feel the patient requires admission for further treatment. I spoke with the on-call hospitalist who agreed to admit the patient for further management. Please refer to their dictation for further details. Will hold on starting antibiotics at this time until further evaluation by the admitting team. The patient's care was transferred in stable condition. DIAGNOSIS: Diverticulitis Facial pain Facial paresthesias Diarrhea Past Med/Surg History Problem List (Updated 04/05/24 @ 19:00 by Nikki Balderrama PA-C) Diarrhea (Acute) Facial paresthesia (Acute) Facial pain (Acute) Diverticulitis (Acute) Rhinovirus infection (Acute) Dysuria (Acute) Lower abdominal pain (Acute) History of penicillin allergy History of Clostridioides difficile colitis Failure of outpatient treatment (Acute) Diverticulitis (Acute) Pelvic and perineal pain COVID-19 (Acute) Neurogenic bladder Recurrent UTI Morbid obesity NAFLD (nonalcoholic fatty liver disease) Pancreatitis, gallstone RSD (reflex sympathetic dystrophy) Rectocele Snoring Mature cataract Immunosuppressed status HLD (hyperlipidemia) Dry eye syndrome Depression Constipation CKD (chronic kidney disease), stage III Carotid artery plaque Atopic dermatitis Presbyopia Amaurosis fugax Abnormal colonoscopy Medical History Hx of retinal detachment Family History Father Aortic aneurysm Bladder cancer Family history of prostate carcinoma Heart disease Hyperlipidemia Aunt COPD (chronic obstructive pulmonary disease) Brother Diabetes Mother Hypertension Cataract Glaucoma Social History Smoking Status: Former smoker Tobacco Type: Cigarettes Do You Dip or Chew Tobacco: No; Hx Alcohol Use: No Hx Substance Use: Yes Substance Use Type Other:: Medical Marijuana Preferred Language: Luxembourgish Communication Ability: Effective Family Services Manager Required: No Beliefs That Will Affect Care: None marital status: Current Living Situation: Spouse Feels Safe at Home: Yes Assistive Devices: Cane, Glasses, Stair Lift, Walker and Wheelchair Allergies Allergies Allergy/AdvReac Type Severity Reaction Status Date / Time Iodinated Contrast Media Allergy Severe Anaphylaxis Verified 09/02/23 15:12 cephalexin [From Keflex] Allergy Intermediate HARD Verified 09/02/23 15:12 REDDENED, FRANCISCO-LIKE AREA ON ARM AFTER PO DOSE Latex, Natural Rubber Allergy Intermediate ITCHY RASH Verified 09/02/23 15:12 nickel Allergy Intermediate ITCHY RASH Verified 09/02/23 15:12 Penicillins Allergy Intermediate HARD Verified 09/02/23 15:12 REDDENED, FRANCISCO-LIKE AREA ON ARM AFTER PO DOSE. amoxicillin [From Augmentin] Allergy Mild HARD Verified 09/02/23 15:12 REDDENED, FRANCISCO-LIKE AREA ON ARM AFTER PO DOSE clavulanic acid Allergy Mild HARD Verified 09/02/23 15:12 [From Augmentin] REDDENED, FRANCISCO-LIKE AREA ON ARM AFTER PO DOSE lidocaine AdvReac Severe INFUSION--S Verified 09/02/23 15:12 EIZURE prochlorperazine AdvReac Intermediate MUSCLE Verified 09/02/23 15:12 [From Compazine] SPASMS THAT CAUSED NECK TO CONTORT Home Meds Home Medications Medication Instructions Recorded Confirmed cholecalciferol (vitamin D3) 50 100 mcg PO DAILY 08/31/22 04/05/24 mcg (2,000 unit) capsule hydroxyzine HCl 10 mg tablet 10 mg PO DAILY 08/31/22 04/05/24 mecobalamin (vitamin B12) 500 mcg 500 mcg PO Q OTHER DAY 08/31/22 04/05/24 chewable tablet polyethylene glycol 3350 17 8.5 g PO BID PRN Constipation 08/31/22 04/05/24 gram/dose oral powder (Miralax) amlodipine 2.5 mg tablet 5 mg PO UD 07/26/23 04/05/24 bupropion HCl 150 mg 24 hr tablet, 150 mg PO TID 07/26/23 04/05/24 extended release mupirocin 2 % topical ointment 1 applic topical TID PRN Open 07/26/23 04/05/24 (Centany) Wounds pregabalin 75 mg capsule 75 mg PO UD 07/26/23 04/05/24 vitamin B complex 1 tab PO Q OTHER DAY 07/26/23 04/05/24 Compound Ointment 1 applic topical QID PRN break 08/24/23 04/05/24 thru pain ascorbic acid (vitamin C) 500 mg 500 mg PO DAILY 08/24/23 04/05/24 tablet (Vitamin C) betamethasone, augmented 0.05 % 1 applic topical BID 08/24/23 04/05/24 topical ointment clobetasol 0.05 % topical ointment 1 applic topical BID 08/24/23 04/05/24 Florastor 1 cap PO DIRECTED PRN 04/05/24 04/05/24 diverticulitis flareup Probiotic Pearls 1 cap PO DAILY 04/05/24 04/05/24 rosuvastatin 5 mg tablet 5 mg PO DAILY 04/05/24 04/05/24 Results & Data (ED) Vital Signs Vital Signs - 24 hr 04/05/24 13:23 04/05/24 15:51 04/05/24 16:58 Temperature 36.8 C Temperature Source Temporal Artery Scan Pulse Rate 59 L 56 L Pulse Rate [Left Finger] 54 L Pulse Rhythm [Left Finger] Regular Pulse Strength [Left Finger] Normal Respiratory Rate 16 16 Respiratory Effort / Characteristics Non-Labored Spontaneous Non-Labored Respiratory Depth Normal Normal Respiratory Pattern Regular Blood Pressure 185/97 H Blood Pressure [Left Arm] 132/62 Blood Pressure Mean 126 Blood Pressure Mean [Left Arm] 85 Blood Pressure Position Sitting Blood Pressure Position [Left Arm] Sitting Pulse Oximetry 100 98 Oxygen Delivery Method Room Air Room Air Sepsis Recent Fever Within 48 Hours No Sepsis New/Unexplained Change in Mental Status N/A Sepsis Action Taken by Nursing No Action Required 04/05/24 17:00 04/05/24 19:00 04/05/24 20:00 Temperature Temperature Source Pulse Rate Pulse Rate [Left Finger] 55 L 51 L 54 L Pulse Rhythm [Left Finger] Pulse Strength [Left Finger] Respiratory Rate 18 20 20 Respiratory Effort / Characteristics Respiratory Depth Respiratory Pattern Blood Pressure Blood Pressure [Left Arm] 129/92 113/56 L Blood Pressure Mean Blood Pressure Mean [Left Arm] 104 75 Blood Pressure Position Blood Pressure Position [Left Arm] Pulse Oximetry 99 99 100 Oxygen Delivery Method Room Air Room Air Room Air Sepsis Recent Fever Within 48 Hours Sepsis New/Unexplained Change in Mental Status Sepsis Action Taken by Nursing Laboratory Data 04/05/24 14:14 04/05/24 14:14 Lab Results 04/05/24 04/05/24 Range/Units 14:14 Unknown WBC 7.34 (4.8-10.8) K/ul RBC 4.67 (4.20-5.40) M/uL Hgb 13.5 (12.0-16.0) g/dl Hct 40.9 (37.0-47.0) % MCV 87.6 (80.0-100.0) fL MCH 28.9 (25.0-34.0) pg MCHC 33.0 (32.0-36.0) g/dL RDW Std Deviation 42.7 (36.4-46.3) fL RDW Coeff of Catherine 13.3 (11.5-14.5) % Plt Count 356 (130-400) K/uL MPV 10.1 (9.4-12.4) fL Immature Gran % (Auto) 0.3 % Neut % (Auto) 54.1 % Lymph % (Auto) 36.1 % [place] % (Auto) 6.9 % Eos % (Auto) 2.2 % Baso % (Auto) 0.4 % Neut # (Auto) 3.97 (1.40-6.50) K/uL Lymph # (Auto) 2.65 (1.20-3.40) K/uL [place] # (Auto) 0.51 (0.11-0.59) K/uL Eos # (Auto) 0.16 (0.00-0.50) K/uL Baso # (Auto) 0.03 (0.00-0.20) K/uL Immature Gran # (Auto) 0.02 (0.01-0.20) K/uL PT 10.2 (9.0-12.0) Seconds INR 0.9 (0.9-1.1) APTT 25 (21-31) Seconds PTT Ratio 0.9 Sodium 140 (136-145) mmol/L Potassium 4.1 (3.5-5.1) mmol/L Chloride 105 (98-107) mmol/L Carbon Dioxide 27 (21-32) mmol/L Anion Gap 8 (3-11) BUN 12 (6-23) mg/dl Creatinine 0.99 (0.6-1.2) mg/dl Est Cr Clr Drug Dosing Not Reportable eGFR 62.50 BUN/Creatinine Ratio 12.1 (10-20) Glucose 88 (70-99(Fasting)) mg/dl Calcium 9.3 (8.6-10.3) mg/dl Magnesium 2.0 (1.7-2.4) mg/dl Total Bilirubin 0.3 (0.2-1.0) mg/dl AST 24 (13-39) U/L ALT 18 (7-52) U/L Alkaline Phosphatase 63 (34-104) U/L Total Protein 7.5 (6.0-8.3) gm/dl Albumin 4.7 (3.4-5.0) gm/dl Globulin 2.8 (2.5-4.0) gm/dl Albumin/Globulin Ratio 1.7 (0.9-2) Lipase 22 (11-82) U/L Urine Color Yellow Urine Appearance Cloudy A (Clear) Urine pH 5.5 (4.5-7.5) Ur Specific [place] 1.018 (1.000-1.030) Urine Protein Negative (Negative) Urine Glucose (UA) Negative (Negative) Urine Ketones Trace H (Negative) Urine Blood Negative (Negative) Urine Nitrite Negative (Negative) Urine Bilirubin Negative (Negative) Urine Urobilinogen Negative (Negative) Ur Leukocyte Esterase 1+ H (Negative) Urine WBC (Auto) 11-20 H (0-5) /hpf Urine RBC (Auto) >20 H (0-2) /hpf U Hyaline Cast (Auto) 0-2 (0-2) /lpf U Epithel Cells (Auto) 3-5 H (0-2) /hpf Urine Bacteria (Auto) 1+ H (None Seen) Calcium Oxalate Crystal Present A (None Prsent) Stl C. diff Tox B Gene Negative Cdiff Gene (Neg) Lyme Disease Screen Negative (Negative) Administered Medications Discontinued Medications Acetaminophen (Ofirmev) 1,000 mg in 100 mls @ 400 mls/hr IV NOW STA Stop: 04/05/24 18:20 Last Infusion: 04/05/24 19:04 Dose: Infused Documented By: Admin: 04/05/24 18:26 Dose: 400 mls/hr Documented By: LEIDA Famotidine (Pepcid 20mg Iv Push) 20 mg in 5 mls @ 2.5 mls/min IV NOW STA Stop: 04/05/24 18:07 Last Admin: 04/05/24 18:26 Dose: 2.5 mls/min Documented By: LEIDA Sodium Chloride (Nss) 500 mls @ 999 mls/hr IV .Q31M ONE Stop: 04/05/24 19:17 Last Infusion: 04/05/24 20:04 Dose: Infused Documented By: Admin: 04/05/24 19:07 Dose: 999 mls/hr Documented By: LEIDA Ondansetron HCl (Ondansetron Inj 2 Mg/Ml 2 Ml Vial) 4 mg IV NOW STA Stop: 04/05/24 18:07 Last Admin: 04/05/24 18:26 Dose: 4 mg Documented By: LEIDA Imaging Data Radiologist's Impression: Head CT 04/05/24 13:26 CT head/brain wo con CLINICAL HISTORY: Head/face pain Technique: Contiguous axial CT images of the head were acquired from the base of the skull to the vertex without intravenous contrast administration. Images were viewed in brain, subdural and bone windows. Automated dose lowering techniques and/or adjustment according to patient size were utilized for this exam. Comparison: Comparison is made to CT head 07/26/2023 Findings: The ventricles, basal cisterns, and cerebral sulci are normal. There is no acute intracranial hemorrhage or evidence of acute territorial infarction. Neither mass effect, shift of the midline structures, nor abnormal extra-axial fluid collections are shown. Imaged portions of the paranasal sinuses and mastoid air cells are clear. The orbits appear normal. There are no acute fractures of the calvaria or scalp swelling. Impression: No acute intracranial hemorrhage, no evidence of acute territorial infarction or other acute intracranial disease process. ACT 112: Negative or not required by law. Electronically signed by: Feliciano Luis M.D. 04/05/2024 1:58 PM Abdomen/Pelvis CT 04/05/24 18:06 CT abd pelvis wo con CLINICAL HISTORY: Abdominal pain, diarrhea TECHNIQUE: Helical axial images of the abdomen and pelvis were obtained. Automated dose lowering techniques and/or adjustment according to patient size were utilized for this exam. This exam was performed without intravenous contrast. CT DOSE: 878.1 mGy.cm COMPARISON: Comparison is made to CT abdomen pelvis 03/27/2024 FINDINGS: Lower chest: No acute abnormality. Liver: Unremarkable. No focal lesions are seen. Gallbladder and biliary tree: Patient is status post cholecystectomy. No intra- or extrahepatic biliary ductal dilation. Pancreas: Unremarkable, no focal lesions. Spleen: Unremarkable. Adrenals: Unremarkable. Kidneys and ureters: Left renal cyst measures 17 mm. Nonobstructive stone is seen on the left. Bladder: Unremarkable. Reproductive organs: Unremarkable. Bowel: There are numerous diverticula throughout the colon. There is minimal fat stranding and vascular prominence without a portion of the descending colon. The appendix is normal. There is a small hiatal hernia. Lymph nodes Retroperitoneal: Unremarkable. Pelvic: Unremarkable. Mesenteric: Unremarkable. Peritoneum: Minimal fat stranding about the descending colon. No pneumoperitoneum or drainable fluid collection. Vessels: Atherosclerotic calcifications are seen. Abdominal wall: Unremarkable. Bones: Degenerative changes in the visualized spine. IMPRESSION: Possible minimal diverticulitis without evidence of perforation or abscess formation. ACT 112: Negative or not required by law. Electronically signed by: Feliciano Luis M.D. 04/05/2024 6:33 PM Discharge Plan Visit Data Chief Complaint: Illness Stated Complaint: DIARRHEA, HEADACHE, LT SIDE FACE NUMB ED Provider: Deandre Bello ED Midlevel Provider: Nikki Balderrama Discharge Problem: Diverticulitis, Facial pain, Facial paresthesia, Diarrhea Patient Disposition: Admitted As Inpatient Condition: Good Forms Stand Alone Forms: [employer] Prescriptions Prescriptions: No Action hydroxyzine HCl 10 mg tablet 10 mg PO DAILY polyethylene glycol 3350 [Miralax] 17 gram/dose powder 8.5 g PO BID PRN (Reason: Constipation) cholecalciferol (vitamin D3) 50 mcg (2,000 unit) capsule 100 mcg PO DAILY mecobalamin (vitamin B12) 500 mcg tablet,chewable 500 mcg PO Q OTHER DAY vitamin B complex Tablet 1 tab PO Q OTHER DAY Rx Instructions: alternates with b12 qod mupirocin [Centany] 2 % ointment 1 applic TOPICAL TID PRN (Reason: Open Wounds) bupropion HCl 150 mg tablet extended release 24 hr 150 mg PO TID pregabalin 75 mg capsule 75 mg PO UD Rx Instructions: per pt she usually does one dose daily. original is for bid amlodipine 2.5 mg tablet 5 mg PO UD Rx Instructions: TAKES 5 MG QAM, THEN 2.5 MG QPM. betamethasone, augmented 0.05 % ointment 1 applic TOPICAL BID Rx Instructions: Alternates w/ Clobetasol ointment every other day clobetasol 0.05 % ointment 1 applic TOPICAL BID Rx Instructions: Alternates w/ Betamethasone ointment every other day Compound Ointment 1 applic topical QID PRN (Reason: break thru pain) Rx Instructions: EDGARDO 10/DIC 6/CYC 4/TET 4/KET 10% ascorbic acid (vitamin C) [Vitamin C] 500 mg Tablet 500 mg PO DAILY rosuvastatin 5 mg tablet 5 mg PO DAILY Florastor 1 cap PO DIRECTED PRN (Reason: diverticulitis flareup) Probiotic Pearls 1 cap PO DAILY Referrals Referrals: Serena Torres DO [Primary Care Provider] - Discharge Problem: Diarrhea Qualifiers: Diarrhea type: unspecified type Qualified Code(s): R19.7 - Diarrhea, unspecified
[2024-04-05 15:04] LABS: Basophils # (auto) 0.03 K/uL (0.00-0.20); Basophils % (auto) 0.4 %; Eosinophils # (auto) 0.16 K/uL (0.00-0.50); Eosinophils % (auto) 2.2 %; Hematocrit (blood only) 40.9 % (37.0-47.0); Hemoglobin 13.5 g/dl (12.0-16.0); Immature Granulocytes # (auto) 0.02 K/uL (0.01-0.20); Immature Granulocytes % (auto) 0.3 %; Lymphocytes # (auto) 2.65 K/uL (1.20-3.40); Lymphocytes % (auto) 36.1 %; Mean Corpuscular Hemoglobin 28.9 pg (25.0-34.0); Mean Corpuscular Volume 87.6 fL (80.0-100.0); Mean Platelet Volume 10.1 fL (9.4-12.4); Monocytes # (auto) 0.51 K/uL (0.11-0.59); Monocytes % (auto) 6.9 %; Neutrophils # (auto) 3.97 K/uL (1.40-6.50); Neutrophils % (auto) 54.1 %; Platelet Count 356 K/uL (130-400); RDW Coefficient of Variation 13.3 % (11.5-14.5); RDW Standard Deviation 42.7 fL (36.4-46.3); Red Blood Count 4.67 M/uL (4.20-5.40); White Blood Count 7.34 K/ul (4.8-10.8)
[2024-04-05 15:24] LABS: Alanine Aminotransferase 18 U/L (7-52); Albumin Globulin Ratio 1.7 (0.9-2); Albumin Level 4.7 gm/dl (3.4-5.0); Alkaline Phosphatase 63 U/L (34-104); Anion Gap 8 (3-11); Aspartate Aminotransferase 24 U/L (13-39); BUN Creatinine Ratio 12.1 (10-20); Bilirubin,Total 0.3 mg/dl (0.2-1.0); Blood Urea Nitrogen 12 mg/dl (6-23); Calcium 9.3 mg/dl (8.6-10.3); Carbon Dioxide 27 mmol/L (21-32); Chloride 105 mmol/L (98-107); Globulin 2.8 gm/dl (2.5-4.0); Glucose 88 mg/dl (70-99(Fasting)); Lipase 22 U/L (11-82); Potassium 4.1 mmol/L (3.5-5.1); Sodium 140 mmol/L (136-145); Total Protein 7.5 gm/dl (6.0-8.3)
[2024-04-05 15:28] LABS: INR 0.9 (0.9-1.1); Partial Thromboplastin Ratio 0.9; Partial Thromboplastin Time 25 Seconds (21-31); Prothrombin Time 10.2 Seconds (9.0-12.0)
[2024-04-05 16:16] LABS: Appearance Urine Cloudy (Clear); Bilirubin Urine Negative (Negative); Blood Urine Negative (Negative); Cast Urine Automated 0-2 /lpf (0-2); Color Urine Yellow; Glucose Urine UA Negative (Negative); Ketones Urine Trace (Negative); Leukocyte Esterase Urine 1+ (Negative); Nitrite Urine Negative (Negative); Protein Urine Negative (Negative); RBC Urine Automated >20 /hpf (0-2); Specific Gravity Urine 1.018 (1.000-1.030); Urobilinogen Urine Negative (Negative); pH Urine 5.5 (4.5-7.5)
[2024-04-05 16:27] LABS: Bacteria Urine Automated 1+ (None Seen); Calcium Oxalate Crystals Urine Present (None Prsent)
[2024-04-05] MEDS: ACETAMINOPHEN 1,000 MG/100 ML VIAL IV STA (18:26)
[2024-04-05] MEDS: FAMOTIDINE 20MG IV PUSH 20 MG/5 ML SYR IV STA (18:26)
[2024-04-05] MEDS: ONDANSETRON INJ 2 MG/ML 2 ML VIAL IV STA (18:26)
--- NOTE | 2024-04-05 18:34 | CT Scan Report ---
CT abd pelvis wo con CLINICAL HISTORY: Abdominal pain, diarrhea TECHNIQUE: Helical axial images of the abdomen and pelvis were obtained. Automated dose lowering tech niques and/or adjustment according to patient size were utilized for this exam. This exam was perfor med without intravenous contrast. CT DOSE: 878.1 mGy.cm COMPARISON: Comparison is made to CT abdomen pelvis 03/27/2024 FINDINGS: Lower chest: No acute abnormality. Liver: Unremarkable. No focal lesions are seen. Gallbladder and biliary tree: Patient is status post cholecystectomy. No intra- or extrahepatic bilia ry ductal dilation. Pancreas: Unremarkable, no focal lesions. Spleen: Unremarkable. Adrenals: Unremarkable. Kidneys and ureters: Left renal cyst measures 17 mm. Nonobstructive stone is seen on the left. Bladder: Unremarkable. Reproductive organs: Unremarkable. Bowel: There are numerous diverticula throughout the colon. There is minimal fat stranding and vascul ar prominence without a portion of the descending colon. The appendix is normal. There is a small hia noah hernia. Lymph nodes Retroperitoneal: Unremarkable. Pelvic: Unremarkable. Mesenteric: Unremarkable. Peritoneum: Minimal fat stranding about the descending colon. No pneumoperitoneum or drainable fluid collection. Vessels: Atherosclerotic calcifications are seen. Abdominal wall: Unremarkable. Bones: Degenerative changes in the visualized spine. IMPRESSION: Possible minimal diverticulitis without evidence of perforation or abscess formation. ACT 112: Negative or not required by law. Electronically signed by: Feliciano Luis M.D. 04/05/2024 6:33 PM
[2024-04-05] MEDS: SODIUM CHLORIDE 0.9% 500 ML IV ONE (19:07)
--- NOTE | 2024-04-05 21:07 | History & Physical Report ---
Date of Service April 05, 2024 Assessment & Plan (1) Diverticulitis: (2) Diarrhea: (3) Rhinovirus infection: (4) History of Clostridioides difficile colitis: (5) Failure of outpatient treatment: (6) Neurogenic bladder: (7) Recurrent UTI: (8) RSD (reflex sympathetic dystrophy): (9) Depression: (10) CKD (chronic kidney disease), stage III: (11) Generalized weakness: Plan Generalized weakness- Patient's primary symptom Likely combination of rhinovirus infection that was diagnosed on 03/27/2024, but was thought to be left over from infection that began over 2 weeks previous to that test Likely also a combination with recurrent issues with diverticulitis, history of C. difficile colitis, and probable antibiotic associated diarrhea Contributing factor also is that of intermittent dehydration Diarrhea- Multifactorial as noted Stool studies negative for C. difficile today Stools are more formed but not normalized, after completing 7-day course of Cipro Flagyl yesterday CT scan questions possible minimal diverticulitis, but would not treat further with antibiotics at this point Placed on cholestyramine first dose tonight, then 4 g p.o. twice daily with meals Probiotics will continue daily Hypertension- Continue amlodipine Immunosuppressed state- Patient reportedly is getting arrangements made to follow-up with rheumatology Depression- Continue bupropion, pregabalin History of Present Illness Chief Complaint: The patient presents to the emergency department with complaint of generalized weakness, headache, bleeding paresthesias in her head and face. She reports that her bowel movements have improved, but are still not normal, since she completed a 7-day course of Cipro and Flagyl that she was given from the ED on 03/27/2024. Primary Care Provider: Serena Torres DO The patient is a 68-year-old female with a past medical history including recurrent bouts of diverticulitis treated with antibiotics, history of C. difficile colitis, neurogenic bladder, recurrent UTI, NAFLD, gallstone pancreatitis, reflux and plate dystrophy, immunosuppressed status, hyperlipidemia, CKD stage III, and recent rhinovirus infection detected in the ED on 03/27/2024. She has had multiple treatments for diverticulitis since her last hospitalization on 09/01-09/01/2023. During that admission, she was treated with ceftriaxone and Flagyl, and then discharged on Cipro and Flagyl. Patient did have a negative C. difficile study in ED tonight, and stool PCR is pending. Allergies Allergy/AdvReac Type Severity Reaction Status Date / Time Iodinated Contrast Media Allergy Severe Anaphylaxis Verified 09/02/23 15:12 cephalexin [From Keflex] Allergy Intermediate HARD Verified 09/02/23 15:12 REDDENED, FRANCISCO-LIKE AREA ON ARM AFTER PO DOSE Latex, Natural Rubber Allergy Intermediate ITCHY RASH Verified 09/02/23 15:12 nickel Allergy Intermediate ITCHY RASH Verified 09/02/23 15:12 Penicillins Allergy Intermediate HARD Verified 09/02/23 15:12 REDDENED, FRANCISCO-LIKE AREA ON ARM AFTER PO DOSE. amoxicillin [From Augmentin] Allergy Mild HARD Verified 09/02/23 15:12 REDDENED, FRANCISCO-LIKE AREA ON ARM AFTER PO DOSE clavulanic acid Allergy Mild HARD Verified 09/02/23 15:12 [From Augmentin] REDDENED, FRANCISCO-LIKE AREA ON ARM AFTER PO DOSE lidocaine AdvReac Severe INFUSION--S Verified 09/02/23 15:12 EIZURE prochlorperazine AdvReac Intermediate MUSCLE Verified 09/02/23 15:12 [From Compazine] SPASMS THAT CAUSED NECK TO CONTORT Home Medications Medication Instructions Recorded Confirmed Type cholecalciferol (vitamin D3) 50 100 mcg PO DAILY 08/31/22 04/05/24 History mcg (2,000 unit) capsule hydroxyzine HCl 10 mg tablet 10 mg PO DAILY 08/31/22 04/05/24 History mecobalamin (vitamin B12) 500 mcg 500 mcg PO Q OTHER DAY 08/31/22 04/05/24 History chewable tablet polyethylene glycol 3350 17 8.5 g PO BID PRN Constipation 08/31/22 04/05/24 History gram/dose oral powder (Miralax) amlodipine 2.5 mg tablet 5 mg PO UD 07/26/23 04/05/24 History bupropion HCl 150 mg 24 hr tablet, 150 mg PO TID 07/26/23 04/05/24 History extended release mupirocin 2 % topical ointment 1 applic topical TID PRN Open 07/26/23 04/05/24 History (Centany) Wounds pregabalin 75 mg capsule 75 mg PO UD 07/26/23 04/05/24 History vitamin B complex 1 tab PO Q OTHER DAY 07/26/23 04/05/24 History Compound Ointment 1 applic topical QID PRN break 08/24/23 04/05/24 History thru pain ascorbic acid (vitamin C) 500 mg 500 mg PO DAILY 08/24/23 04/05/24 History tablet (Vitamin C) betamethasone, augmented 0.05 % 1 applic topical BID 08/24/23 04/05/24 History topical ointment clobetasol 0.05 % topical ointment 1 applic topical BID 08/24/23 04/05/24 History Florastor 1 cap PO DIRECTED PRN 04/05/24 04/05/24 History diverticulitis flareup Probiotic Pearls 1 cap PO DAILY 04/05/24 04/05/24 History rosuvastatin 5 mg tablet 5 mg PO DAILY 04/05/24 04/05/24 History Past Med/Surg History Problem List (Updated 04/06/24 @ 04:30 by Joshua Child MD) Generalized weakness Diarrhea (Acute) Facial paresthesia (Acute) Facial pain (Acute) Diverticulitis (Acute) Rhinovirus infection (Acute) Dysuria (Acute) Lower abdominal pain (Acute) History of penicillin allergy History of Clostridioides difficile colitis Failure of outpatient treatment (Acute) Diverticulitis (Acute) Pelvic and perineal pain COVID-19 (Acute) Neurogenic bladder Recurrent UTI Morbid obesity NAFLD (nonalcoholic fatty liver disease) Pancreatitis, gallstone RSD (reflex sympathetic dystrophy) Rectocele Snoring Mature cataract Immunosuppressed status HLD (hyperlipidemia) Dry eye syndrome Depression Constipation CKD (chronic kidney disease), stage III Carotid artery plaque Atopic dermatitis Presbyopia Amaurosis fugax Abnormal colonoscopy Medical History Hx of retinal detachment Family History Father Aortic aneurysm Bladder cancer Family history of prostate carcinoma Heart disease Hyperlipidemia Aunt COPD (chronic obstructive pulmonary disease) Brother Diabetes Mother Hypertension Cataract Glaucoma Social History Smoking Status: Former smoker Tobacco Type: Cigarettes Do You Dip or Chew Tobacco: No; Hx Alcohol Use: No Hx Substance Use: Yes Last Used Substance: Hours (ago) Substance Use Type Other:: Medical Marijuana Preferred Language: Bengali Communication Ability: Effective Casino Change Attendant Required: No Beliefs That Will Affect Care: None marital status: Current Living Situation: Spouse and Family Other Information That Helps Us Care for You: No Feels Safe at Home: Yes Safety Concerns: Feels Safe At This Time Assistive Devices: Cane, Glasses and Stair Lift Review of Systems Review of Systems: The patient denies chest pain, palpitations, shortness of breath, dyspnea on exertion, cough, lower extremity swelling, sore throat, fevers, chills, sweats, blood in urine or stool, dysuria, urinary frequency or urgency, memory loss, loss of consciousness, rash, abnormal bruising or bleeding, focal weakness, numbness or tingling in arms or legs, generalized arthralgias or myalgias, back or neck pain, or night sweats. The review of systems is otherwise negative other than for that already noted above, and at least 10 systems have been reviewed. Physical Exam Physical Exam: The patient is awake, alert and oriented 3, well developed and well nourished, normocephalic and atraumatic, lying in bed and in no acute distress. HEENT--PERRL, EOMI, mucous membranes and oropharynx mildly dry. Neck--supple. No JVD. No bruits. Thyroid normal, trachea midline, no adenopathy. Heart--normal S1 and S2. No murmurs, rubs or gallops. Lungs--clear bilaterally, no respiratory distress, no accessory muscle use. Abdomen--normal bowel sounds and soft. Nontender. Nondistended, no hernias or masses, no organomegaly. Extremities--no cyanosis or clubbing. No edema. There are good distal pulses b/l. Dermatologic--normal skin turgor, normal color, no abnormal lymph nodes, no rash. Neurologic--cranial nerves II through XII grossly intact. Rheumatologic--normal range of motion. Psychiatric--normal affect. Results & Data Results & Data Vital Signs (Past 12 Hours) Vital Signs Temp Pulse Pulse Resp BP BP Pulse Ox 04/05/24 20:48 60 04/05/24 20:30 56 L 19 134/65 98 04/05/24 20:00 54 L 20 113/56 L 100 04/05/24 19:00 51 L 20 99 04/05/24 17:00 55 L 18 129/92 99 04/05/24 16:58 56 L 04/05/24 15:51 54 L 16 132/62 98 04/05/24 13:23 36.8 C 59 L 16 185/97 H 100 O2 Del Method 04/05/24 20:48 04/05/24 20:30 04/05/24 20:00 Room Air 04/05/24 19:00 Room Air 04/05/24 17:00 Room Air 04/05/24 16:58 04/05/24 15:51 Room Air 04/05/24 13:23 Room Air Laboratory Results Laboratory Results WBC 7.34 K/ul (4.8-10.8) 04/05/24 14:14 RBC 4.67 M/uL (4.20-5.40) 04/05/24 14:14 Hgb 13.5 g/dl (12.0-16.0) 04/05/24 14:14 Hct 40.9 % (37.0-47.0) 04/05/24 14:14 MCV 87.6 fL (80.0-100.0) 04/05/24 14:14 MCH 28.9 pg (25.0-34.0) 04/05/24 14:14 MCHC 33.0 g/dL (32.0-36.0) 04/05/24 14:14 RDW Std Deviation 42.7 fL (36.4-46.3) 04/05/24 14:14 RDW Coeff of Catherine 13.3 % (11.5-14.5) 04/05/24 14:14 Plt Count 356 K/uL (130-400) 04/05/24 14:14 MPV 10.1 fL (9.4-12.4) 04/05/24 14:14 Immature Gran % (Auto) 0.3 % 04/05/24 14:14 Neut % (Auto) 54.1 % 04/05/24 14:14 Lymph % (Auto) 36.1 % 04/05/24 14:14 [place] % (Auto) 6.9 % 04/05/24 14:14 Eos % (Auto) 2.2 % 04/05/24 14:14 Baso % (Auto) 0.4 % 04/05/24 14:14 Neut # (Auto) 3.97 K/uL (1.40-6.50) 04/05/24 14:14 Lymph # (Auto) 2.65 K/uL (1.20-3.40) 04/05/24 14:14 [place] # (Auto) 0.51 K/uL (0.11-0.59) 04/05/24 14:14 Eos # (Auto) 0.16 K/uL (0.00-0.50) 04/05/24 14:14 Baso # (Auto) 0.03 K/uL (0.00-0.20) 04/05/24 14:14 Immature Gran # (Auto) 0.02 K/uL (0.01-0.20) 04/05/24 14:14 PT 10.2 Seconds (9.0-12.0) 04/05/24 14:14 INR 0.9 (0.9-1.1) 04/05/24 14:14 APTT 25 Seconds (21-31) 04/05/24 14:14 PTT Ratio 0.9 04/05/24 14:14 Sodium 140 mmol/L (136-145) 04/05/24 14:14 Potassium 4.1 mmol/L (3.5-5.1) 04/05/24 14:14 Chloride 105 mmol/L (98-107) 04/05/24 14:14 Carbon Dioxide 27 mmol/L (21-32) 04/05/24 14:14 Anion Gap 8 (3-11) 04/05/24 14:14 BUN 12 mg/dl (6-23) 04/05/24 14:14 Creatinine 0.99 mg/dl (0.6-1.2) 04/05/24 14:14 Est Cr Clr Drug Dosing Not Reportable 04/05/24 14:14 eGFR 62.50 04/05/24 14:14 BUN/Creatinine Ratio 12.1 (10-20) 04/05/24 14:14 Glucose 88 mg/dl (70-99(Fasting)) 04/05/24 14:14 Calcium 9.3 mg/dl (8.6-10.3) 04/05/24 14:14 Magnesium 2.0 mg/dl (1.7-2.4) 04/05/24 14:14 Total Bilirubin 0.3 mg/dl (0.2-1.0) 04/05/24 14:14 AST 24 U/L (13-39) 04/05/24 14:14 ALT 18 U/L (7-52) 04/05/24 14:14 Alkaline Phosphatase 63 U/L (34-104) 04/05/24 14:14 Total Protein 7.5 gm/dl (6.0-8.3) 04/05/24 14:14 Albumin 4.7 gm/dl (3.4-5.0) 04/05/24 14:14 Globulin 2.8 gm/dl (2.5-4.0) 04/05/24 14:14 Albumin/Globulin Ratio 1.7 (0.9-2) 04/05/24 14:14 Lipase 22 U/L (11-82) 04/05/24 14:14 Urine Color Yellow 04/05/24 Unknown Urine Appearance Cloudy (Clear) A 04/05/24 Unknown Urine pH 5.5 (4.5-7.5) 04/05/24 Unknown Ur Specific [place] 1.018 (1.000-1.030) 04/05/24 Unknown Urine Protein Negative (Negative) 04/05/24 Unknown Urine Glucose (UA) Negative (Negative) 04/05/24 Unknown Urine Ketones Trace (Negative) H 04/05/24 Unknown Urine Blood Negative (Negative) 04/05/24 Unknown Urine Nitrite Negative (Negative) 04/05/24 Unknown Urine Bilirubin Negative (Negative) 04/05/24 Unknown Urine Urobilinogen Negative (Negative) 04/05/24 Unknown Ur Leukocyte Esterase 1+ (Negative) H 04/05/24 Unknown Urine WBC (Auto) 11-20 /hpf (0-5) H 04/05/24 Unknown Urine RBC (Auto) >20 /hpf (0-2) H 04/05/24 Unknown U Hyaline Cast (Auto) 0-2 /lpf (0-2) 04/05/24 Unknown U Epithel Cells (Auto) 3-5 /hpf (0-2) H 04/05/24 Unknown Urine Bacteria (Auto) 1+ (None Seen) H 04/05/24 Unknown Calcium Oxalate Crystal Present (None Prsent) A 04/05/24 Unknown Stl C. diff Tox B Gene Negative Cdiff Gene (Neg) 04/05/24 Unknown Lyme Disease Screen Negative (Negative) 04/05/24 14:[address] 04/05/24 13:26 CT head/brain wo con CLINICAL HISTORY: Head/face pain Technique: Contiguous axial CT images of the head were acquired from the base of the skull to the vertex without intravenous contrast administration. Images were viewed in brain, subdural and bone windows. Automated dose lowering techniques and/or adjustment according to patient size were utilized for this exam. Comparison: Comparison is made to CT head 07/26/2023 Findings: The ventricles, basal cisterns, and cerebral sulci are normal. There is no acute intracranial hemorrhage or evidence of acute territorial infarction. Neither mass effect, shift of the midline structures, nor abnormal extra-axial fluid collections are shown. Imaged portions of the paranasal sinuses and mastoid air cells are clear. The orbits appear normal. There are no acute fractures of the calvaria or scalp swelling. Impression: No acute intracranial hemorrhage, no evidence of acute territorial infarction or other acute intracranial disease process. ACT 112: Negative or not required by law. Electronically signed by: Feliciano Luis M.D. 04/05/2024 1:58 PM Abdomen/Pelvis CT 04/05/24 18:06 CT abd pelvis wo con CLINICAL HISTORY: Abdominal pain, diarrhea TECHNIQUE: Helical axial images of the abdomen and pelvis were obtained. Automated dose lowering techniques and/or adjustment according to patient size were utilized for this exam. This exam was performed without intravenous contrast. CT DOSE: 878.1 mGy.cm COMPARISON: Comparison is made to CT abdomen pelvis 03/27/2024 FINDINGS: Lower chest: No acute abnormality. Liver: Unremarkable. No focal lesions are seen. Gallbladder and biliary tree: Patient is status post cholecystectomy. No intra- or extrahepatic biliary ductal dilation. Pancreas: Unremarkable, no focal lesions. Spleen: Unremarkable. Adrenals: Unremarkable. Kidneys and ureters: Left renal cyst measures 17 mm. Nonobstructive stone is seen on the left. Bladder: Unremarkable. Reproductive organs: Unremarkable. Bowel: There are numerous diverticula throughout the colon. There is minimal fat stranding and vascular prominence without a portion of the descending colon. The appendix is normal. There is a small hiatal hernia. Lymph nodes Retroperitoneal: Unremarkable. Pelvic: Unremarkable. Mesenteric: Unremarkable. Peritoneum: Minimal fat stranding about the descending colon. No pneumoperitoneum or drainable fluid collection. Vessels: Atherosclerotic calcifications are seen. Abdominal wall: Unremarkable. Bones: Degenerative changes in the visualized spine. IMPRESSION: Possible minimal diverticulitis without evidence of perforation or abscess formation. ACT 112: Negative or not required by law. Electronically signed by: Feliciano Luis M.D. 04/05/2024 6:33 PM Code Status & VTE Plan Code Status Full code VTE Prophylaxis Plan VTE Prophylaxis will be ordered: Yes PG Care Time/CCT Total # of Minutes Spent Total Time Spent with Patient: Total time spent is greater than 50% in coordination of care (as documented) at patient's floor/unit and/or counseling patient: Coding Level of Care Code 84013 INT INP/OBS CARE MIN Diagnoses Diverticulitis K57.92 Diarrhea R19.7 Diarrhea type: unspecified type Rhinovirus infection B34.8 History of Clostridioides difficile colitis Z86.19 Failure of outpatient treatment Z78.9 Neurogenic bladder N31.9 Recurrent UTI N39.0 RSD (reflex sympathetic dystrophy) G90.50 Depression F32.A CKD (chronic kidney disease), stage III N18.30 Generalized weakness R53.1 (2) Diarrhea Diarrhea type: unspecified type Qualified Code(s): R19.7 - Diarrhea, unspecified
[2024-04-05] MEDS: SACCHAROMYCES BOULARDII 250 MG CAP PO STA (21:46)
[2024-04-05] MEDS: CHOLESTYRAMINE LIGHT 4 GM PKT PO STA (21:49)
[2024-04-05] MEDS ORDERED: ACETAMINOPHEN 325 MG TAB PO PRN (22:25)
[2024-04-05] MEDS ORDERED: COMPOUND TOP PRN (22:25)
[2024-04-05] MEDS ORDERED: BETAMETHASONE DIP AUG 0.05% OINT 15 GM TUBE TOP SCH (22:25)
[2024-04-05] MEDS: CHOLESTYRAMINE LIGHT 4 GM PKT PO SCH (23:18)
[2024-04-05] MEDS: PREGABALIN 75 MG CAP PO SCH (23:31)
[2024-04-05] MEDS: CLOBETASOL PROPIONATE 0.05% OINT 15 GM TUBE EXT SCH (23:54)
[2024-04-05] MEDS: amLODIPine BESYLATE 5 MG TAB PO SCH (23:54)
[2024-04-05] MEDS: buPROPion XL 150 MG TABCR PO SCH (23:54)
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
[2024-04-06 06:50] LABS: Basophils # (auto) 0.02 K/uL (0.00-0.20); Basophils % (auto) 0.4 %; Eosinophils # (auto) 0.13 K/uL (0.00-0.50); Eosinophils % (auto) 2.6 %; Hematocrit (blood only) 38.3 % (37.0-47.0); Hemoglobin 12.7 g/dl (12.0-16.0); Immature Granulocytes # (auto) 0.01 K/uL (0.01-0.20); Immature Granulocytes % (auto) 0.2 %; Lymphocytes # (auto) 2.04 K/uL (1.20-3.40); Lymphocytes % (auto) 40.3 %; Mean Corpuscular Hemoglobin 29.3 pg (25.0-34.0); Mean Corpuscular Hgb Conc 33.2 g/dL (32.0-36.0); Mean Corpuscular Volume 88.2 fL (80.0-100.0); Mean Platelet Volume 10.3 fL (9.4-12.4); Monocytes # (auto) 0.38 K/uL (0.11-0.59); Monocytes % (auto) 7.5 %; Neutrophils # (auto) 2.48 K/uL (1.40-6.50); Platelet Count 316 K/uL (130-400); RDW Coefficient of Variation 13.3 % (11.5-14.5); RDW Standard Deviation 43.2 fL (36.4-46.3); Red Blood Count 4.34 M/uL (4.20-5.40); White Blood Count 5.06 K/ul (4.8-10.8)
[2024-04-06 06:52] LABS: Albumin Level 3.9 gm/dl (3.4-5.0); BUN Creatinine Ratio 10.8 (10-20); Calcium 8.7 mg/dl (8.6-10.3); Creatinine Clr Calc Pharmacy 54.3 ml/min; Magnesium 1.9 mg/dl (1.7-2.4); Potassium 4.1 mmol/L (3.5-5.1)
--- NOTE | 2024-04-06 07:33 | Hospitalist Progress Note ---
Date of Service April 06, 2024 Assessment & Plan (1) Diverticulitis: (2) Diarrhea: (3) Rhinovirus infection: (4) History of Clostridioides difficile colitis: (5) Failure of outpatient treatment: (6) Neurogenic bladder: (7) Recurrent UTI: (8) RSD (reflex sympathetic dystrophy): (9) Depression: (10) CKD (chronic kidney disease), stage III: (11) Generalized weakness: Plan Generalized weakness- Likely combination of rhinovirus infection that was diagnosed on 03/27/2024, but was thought to be left over from infection that began over 2 weeks previous to that test and recurrent diarrhea Contributing factor is that of intermittent dehydration -Recommended increased hydration up to 80oz of water daily - Use of neti pot for sinus congestion and facial pain Diarrhea- Stool studies negative for C. difficile today Stools are more formed but not normalized, after completing 7-day course of Cipro Flagyl yesterday CT scan questions possible minimal diverticulitis, but also shows stool burden in the ascending and transverse colon, which maybe the the primary cause of her intermittent abdominal pain and diarrhea -Given cholestyramine first dose tonight, then 4 g p.o. twice daily with meals -Probiotics will continue daily -Instructed in 3 times daily use of Miralax to releive constipation and stool burden noted at right ascending and transverse colon. Hypertension- Continue amlodipine Immunosuppressed state- Patient reportedly is getting arrangements made to follow-up with rheumatology Depression- Continue bupropion, pregabalin Admission and Anticipated Discharge Date Admission Date: April 05, 2024 Subjective Pt is a 68 yo female who presented to ED with weakness and diarrhea. Pt has extensive history of RSD pain and complications that began in the early , including long standing GI problems. Pt reported this morning, that she was noting improvement in consistency of her stool after finishing antibiotics 2 days ago, but continues with weakness and decreased sleep. She denies CP, SOB, nausea, vomiting, cough and nasal congestion. She reports chronic pain in all 4 extremities due to RSD, somewhat improved with pregabalin. She endorses urinary hesitation that has gradully worsened in the last year. She denies dysuria or visual blood in her urine Review of Systems Review of Systems: As per HPI Physical Exam Physical Exam: The patient is awake, alert and oriented 3, well developed and well nourished, normocephalic and atraumatic, lying in bed and in no acute distress. HEENT--PERRL, EOMI, mucous membranes and oropharynx mildly dry. Neck--supple. No JVD. No bruits. Thyroid normal, trachea midline, no adenopathy. Heart--normal S1 and S2. No murmurs, rubs or gallops. Lungs--clear bilaterally, no respiratory distress, no accessory muscle use. Abdomen--normal bowel sounds and soft.Nondistended. Tender at lower abdomen/bladder with palpation Extremities--no cyanosis or clubbing. No edema. There are good distal pulses b/l. Dermatologic--normal skin turgor, normal color, no abnormal lymph nodes, no rash. Neurologic--cranial nerves II through XII grossly intact. Rheumatologic--normal range of motion. Psychiatric--normal affect. Results & Data Results & Data Vital Signs (Past 12 Hours) Vital Signs Temp Pulse Pulse Resp BP BP Pulse Ox 04/05/24 22:30 36.5 C 50 L 16 151/68 H 95 04/05/24 21:30 56 L 16 135/64 97 04/05/24 21:00 60 16 136/66 98 04/05/24 20:48 60 04/05/24 20:30 56 L 19 134/65 98 04/05/24 20:00 54 L 20 113/56 L 100 O2 Del Method 04/05/24 22:30 Room Air 04/05/24 21:30 04/05/24 21:00 04/05/24 20:48 04/05/24 20:30 04/05/24 20:00 Room Air (2) Diarrhea Diarrhea type: unspecified type Qualified Code(s): R19.7 - Diarrhea, u nspecified
[2024-04-06] MEDS: CHOLECALCIFEROL 25 MCG (1000 UNITS) TAB PO SCH (10:14)
[2024-04-06] MEDS: ASCORBIC ACID 500 MG TAB PO SCH (10:14)
[2024-04-06] MEDS: amLODIPine BESYLATE 5 MG TAB PO SCH (10:14)
[2024-04-06] MEDS: hydrOXYzine HCl 10 MG TAB PO SCH (10:16)
[2024-04-06] MEDS: ADVANCED PROBIOTIC 625 MG CAPSULE PO SCH (10:16)
[2024-04-06] MEDS: CYANOCOBALAMIN (B-12) 500 MCG TABLET PO SCH (10:16)
[2024-04-06] MEDS: ROSUVASTATIN CALCIUM 5 MG TAB PO SCH (10:17)
[2024-04-06 14:27] VITALS: BP 139/82; PULSE 54; RESP 17; TEMP 98.4; O2SAT 96
--- NOTE | 2024-04-06 18:07 | Discharge Summary ---
Date of Service April 06, 2024 Admission HPI Per Admitting Provider The patient is a 68-year-old female with a past medical history including recurrent bouts of diverticulitis treated with antibiotics, history of C. difficile colitis, neurogenic bladder, recurrent UTI, NAFLD, gallstone pancreatitis, reflux and plate dystrophy, immunosuppressed status, hyperlipidemia, CKD stage III, and recent rhinovirus infection detected in the ED on 03/27/2024. She has had multiple treatments for diverticulitis since her last hospitalization on 09/01-09/01/2023. During that admission, she was treated with ceftriaxone and Flagyl, and then discharged on Cipro and Flagyl. Patient did have a negative C. difficile study in ED tonight, and stool PCR is pending. Principal Diagnosis Constipation, weakness post viral illness Discharge Exam The patient is awake, alert and oriented 3, well developed and well nourished, normocephalic and atraumatic, lying in bed and in no acute distress. HEENT--PERRL, EOMI, mucous membranes and oropharynx mildly dry. Neck--supple. No JVD. No bruits. Thyroid normal, trachea midline, no adenopathy. Heart--normal S1 and S2. No murmurs, rubs or gallops. Lungs--clear bilaterally, no respiratory distress, no accessory muscle use. Abdomen--normal bowel sounds and soft.Nondistended. Tender at lower abdomen/bladder with palpation Extremities--no cyanosis or clubbing. No edema. There are good distal pulses b/l. Dermatologic--normal skin turgor, normal color, no abnormal lymph nodes, no rash. Neurologic--cranial nerves II through XII grossly intact. Rheumatologic--normal range of motion. Psychiatric--normal affect. Discharge Data Allergies Allergy/AdvReac Type Severity Reaction Status Date / Time Iodinated Contrast Media Allergy Severe Anaphylaxis Verified 09/02/23 15:12 cephalexin [From Keflex] Allergy Intermediate HARD Verified 09/02/23 15:12 REDDENED, FRANCISCO-LIKE AREA ON ARM AFTER PO DOSE Latex, Natural Rubber Allergy Intermediate ITCHY RASH Verified 09/02/23 15:12 nickel Allergy Intermediate ITCHY RASH Verified 09/02/23 15:12 Penicillins Allergy Intermediate HARD Verified 09/02/23 15:12 REDDENED, FRANCISCO-LIKE AREA ON ARM AFTER PO DOSE. amoxicillin [From Augmentin] Allergy Mild HARD Verified 09/02/23 15:12 REDDENED, FRANCISCO-LIKE AREA ON ARM AFTER PO DOSE clavulanic acid Allergy Mild HARD Verified 09/02/23 15:12 [From Augmentin] REDDENED, FRANCISCO-LIKE AREA ON ARM AFTER PO DOSE lidocaine AdvReac Severe INFUSION--S Verified 09/02/23 15:12 EIZURE prochlorperazine AdvReac Intermediate MUSCLE Verified 09/02/23 15:12 [From Compazine] SPASMS THAT CAUSED NECK TO CONTORT Consultations 04/05/24 19:33 ED Decision to Admit Stat Ordered Studies 04/05/24 13:26 CT head/brain wo con Stat 04/05/24 18:06 CT abd pelvis wo con Stat Hospital Course (1) Diverticulitis: (2) Diarrhea: (3) Rhinovirus infection: (4) History of Clostridioides difficile colitis: (5) Failure of outpatient treatment: (6) Neurogenic bladder: (7) Recurrent UTI: (8) RSD (reflex sympathetic dystrophy): (9) Depression: (10) CKD (chronic kidney disease), stage III: (11) Generalized weakness: Plan Generalized weakness- Likely combination of rhinovirus infection that was diagnosed on 03/27/2024, but was thought to be left over from infection that began over 2 weeks previous to that test and recurrent diarrhea Contributing factor is that of intermittent dehydration -Recommended increased hydration up to 80oz of water daily - Use of neti pot for sinus congestion and facial pain Diarrhea- Stool studies negative for C. difficile today Stools are more formed but not normalized, after completing 7-day course of Cipro Flagyl yesterday CT scan questions possible minimal diverticulitis, but also shows stool burden in the ascending and transverse colon, which maybe the the primary cause of her intermittent abdominal pain and diarrhea -Given cholestyramine first dose tonight, then 4 g p.o. twice daily with meals -Probiotics will continue daily -Instructed in 3 times daily use of Miralax to releive constipation and stool burden noted at right ascending and transverse colon. Hypertension- Continue amlodipine Immunosuppressed state- Patient reportedly is getting arrangements made to follow-up with rheumatology Depression- Continue bupropion, pregabalin Total Time Total Time Spent Total Time Spent (In Minutes): As per attending physician's attestation Discharge Plan Discharge Items Patient Disposition: Home - Self-Care Reason For Visit: DIVERTICULITIS, WEAKNESS, FAILURE OF OP TREATMENT Discharge Diagnosis: Constipation, weakness post viral infection Condition on Discharge: Good Activity: Resume your previous activity Non-emergency contact: Primary Care Provider Call non-emergency contact if: your symptoms worsen Follow-up/Referrals: Serena Torres, [Primary Care Provider] - Diet: Regular Addtl Attending Provider Instructions: For your constipation, we recommend that you use Miralax, 3 doses daily for the next 5-7 days. Maintenance at your discretion. For your facial pain, sinus infection we recommend using a Neti Pot for irrigation. For your POTS-like symptoms of lightheadedness and presyncope, we recommend 80oz of water daily as well as increasing sodium, such as a bowl of soup for lunch. Please make an appointment with Dr. Torres in one week to follow up on your current symptoms. Regular, periodic visits with your PCP in the future such as every one to two months. Pending Studies at Discharge: No Stand-Alone Forms: My [facility] [employer], Smoking Cessation Medications and DC Order Prescriptions: Continued hydroxyzine HCl 10 mg tablet 10 mg PO DAILY polyethylene glycol 3350 [Miralax] 17 gram/dose powder 8.5 g PO BID PRN (Reason: Constipation) cholecalciferol (vitamin D3) 50 mcg (2,000 unit) capsule 100 mcg PO DAILY mecobalamin (vitamin B12) 500 mcg tablet,chewable 500 mcg PO Q OTHER DAY vitamin B complex Tablet 1 tab PO Q OTHER DAY Rx Instructions: alternates with b12 qod mupirocin [Centany] 2 % ointment 1 applic TOPICAL TID PRN (Reason: Open Wounds) bupropion HCl 150 mg tablet extended release 24 hr 150 mg PO TID pregabalin 75 mg capsule 75 mg PO UD Rx Instructions: per pt she usually does one dose daily. original is for bid amlodipine 2.5 mg tablet 5 mg PO UD Rx Instructions: TAKES 5 MG QAM, THEN 2.5 MG QPM. betamethasone, augmented 0.05 % ointment 1 applic TOPICAL BID Rx Instructions: Alternates w/ Clobetasol ointment every other day clobetasol 0.05 % ointment 1 applic TOPICAL BID Rx Instructions: Alternates w/ Betamethasone ointment every other day Compound Ointment 1 applic topical QID PRN (Reason: break thru pain) Rx Instructions: EDGARDO 10/DIC 6/CYC 4/TET 4/KET 10% ascorbic acid (vitamin C) [Vitamin C] 500 mg Tablet 500 mg PO DAILY rosuvastatin 5 mg tablet 5 mg PO DAILY Florastor 1 cap PO DIRECTED PRN (Reason: diverticulitis flareup) Probiotic Pearls 1 cap PO DAILY Discharge Orders: Discharge Order (Routine); Ordered 04/06/24 Ordered By: Mee Pereira Admission Data Admit Date/Time: 04/05/24 21:06 Attending Provider: Escobar Delgado Admit Provider: Joshua Child Primary Care Provider: Serena Torres Other Providers: Joshua Child Supervising Physician Co-Signing Physician Notes I personally examined the patient and verified all wall points of history and exam, discussed case, and agree with decision making with Dr Pereira feeling less weak, feels well enough to go home. vitals noted nad R frontal, b/l maxillary sinus moderate tenderness. abd soft mild distention weakness - chronic illness + rhinovirus - improving, safe for home sinusitis - examines viral - supportive care. abx she's on for colon would more than cover bacterial anyway, but highly doubt bacterial given exam. discussed nasal irrigation to help w sx lightheadedness - induced by heat, seems to be vasodilatory physiology - "POTS like" - discussed hydration, salt load, sitting, etc. discussed can escalate to midodrine/florinef if neeeded but hopefully would not need to diarrhea - CT shows significant amount of solid stool - strongly suspect overflow. miralax (discussed different approaches and agreed on "aggressive stool softener" approach to mitigate medication induced symptoms, although this will take longer) - start w 17g TID. safe/stable for discharge - quite complicated with multiple chronic diagnosis and much nuance - discussed would probably do well to see PCP frequently (?monthly) to better get a feel for chronic problems as well as manage problems before they become larger Resident Activity Tracking Resident Involvement: Resident Care Provided Care Provided: Adult Hospital Medicine
--- NOTE | 2024-04-06 18:19 | Billing Data ---
Date of Service April 06, 2024 Coding Level of Care Code 38466 IN/OBS DISCH 30 MIN/LESS
[2024-04-07] MEDS ORDERED: VITAMIN B COMPLEX TAB PO SCH (09:00)
== END 2024-04-06 19:06 | disposition home or self-care (01) ==
LOC: ED 13:13 → 3E 13:13 → SUATTDRO 21:06 → 3E 21:53

== ENCOUNTER 2025-03-22 14:31 | Inpatient (IN) ==
[2025-03-22 16:26] LABS: Hematocrit (blood only) 38.2 % (37.0-47.0); Hemoglobin 13.1 g/dl (12.0-16.0); Immature Granulocytes # (auto) 0.02 K/uL (0.01-0.20); Immature Granulocytes % (auto) 0.2 %; Mean Corpuscular Hemoglobin 30.4 pg (25.0-34.0); Mean Corpuscular Volume 88.6 fL (80.0-100.0); Platelet Count 252 K/uL (130-400); RDW Standard Deviation 45.3 fL (36.4-46.3); Red Blood Count 4.31 M/uL (4.20-5.40); White Blood Count 8.01 K/ul (4.8-10.8)
--- NOTE | 2025-03-22 16:45 | XRay Report ---
EXAM: X-ray chest one-view portable CLINICAL HISTORY: Cough PRIORS: 11/29/2024 09/08/2024 TECHNIQUE: AP view chest FINDINGS: Lung volumes mildly diminished. Patient rotated. No airspace consolidation, effusion or congestive changes. Heart size is top normal. No pneumothorax. Trachea is patent. Osseous structures demonstrate no acute abnormality. No radiopaque foreign body. IMPRESSION: No plain film evidence of an acute cardiopulmonary process. If clinically appropriate, chest CT could be considered. Electronically signed by Adele Esparza 03-22-2025 4:45 PM
[2025-03-22 16:47] LABS: Alanine Aminotransferase 22 U/L (7-52); Albumin Globulin Ratio 1.1 (0.9-2); Albumin Level 4.3 gm/dl (3.4-5.0); Alkaline Phosphatase 65 U/L (34-104); Anion Gap 6 (3-11); Bilirubin,Total 0.3 mg/dl (0.2-1.0); Blood Urea Nitrogen 16 mg/dl (6-23); Calcium 9.1 mg/dl (8.6-10.3); Carbon Dioxide 26 mmol/L (21-32); Chloride 104 mmol/L (98-107); Globulin 4.0 gm/dl (2.5-4.0); Glucose 91 mg/dl (70-99(Fasting)); Potassium 4.0 mmol/L (3.5-5.1); Sodium 136 mmol/L (136-145); Total Protein 8.3 gm/dl (6.0-8.3)
[2025-03-22 16:59] LABS: Influenza A virus by PCR Negative (Neg); Influenza B virus by PCR Negative (Neg); SARS CoV2 RNA(COVID-19) Ceph NEGATIVE (Negative)
[2025-03-22] MEDS: PLASMA-LYTE A 1,000 ML IV ONE (17:52)
[2025-03-22] MEDS: ALBUT/IPRATROP 3MG/0.5MG NEB 3 ML VIAL NEB STA ×2 (17:52→20:15)
[2025-03-22] MEDS: FAMOTIDINE 20MG IV PUSH 20 MG/5 ML SYR IV STA (17:56)
[2025-03-22] MEDS: ONDANSETRON INJ 2 MG/ML 2 ML VIAL IV STA (17:56)
--- NOTE | 2025-03-22 19:34 | CT Scan Report ---
EXAMINATION: Chest CT without CLINICAL HISTORY: Evaluate for pneumonia, obstruction COMPARISON: None TECHNIQUE: Contiguous axial images were obtained through the chest without the use of intravenous contrast. Sagittal and coronal reformations are supplied. FINDINGS: Advanced kyphosis is noted distorting the anatomy. Mild osseous demineralization present with mild to moderate degenerative change throughout the thoracic spine. No high-grade compression fracture. The chest is well-expanded. Mild centrilobular pulmonary emphysema present. No confluent opacification. Patchy region of ground glass attenuation noted in the left upper lobe, David hilar. No confluent opacification. No pleural effusion. No mucous plugging. Trachea and mainstem bronchi are patent. Heart size is normal. No adenopathy in the chest. Moderate hiatal hernia. Moderate atherosclerotic disease. IMPRESSION: 1. Subtle patchy ground glass attenuation in the left upper lobe which may be related to hypoventilatory changes versus early pneumonia in the proper clinical setting. 2. Moderate hiatal hernia. ACT 112: Positive. There are findings on this examination that require communication between the performing entity and the patient following Patient Test Result Information Act ([place] ACT 112) guidelines. Electronically signed by Adele Esparza 03-22-2025 7:33 PM
--- NOTE | 2025-03-22 19:49 | Emergency Department Note ---
Impression & Plan Community acquired pneumonia, ZAN (acute kidney injury), Chronic cough ED Provider Note NAME: SARA PATEL AGE: 69 SEX: F : 1955 ARRIVES VIA: Walk-In INFORMANT: Patient, ED PROVIDER(S): Luis Miranda DO CHIEF COMPLAINT: cough HPI: This is a 69-year-old female with the PMHx of psoriatic arthritis, CKD, hypertension, hyperlipidemia, RSD/chronic inflammatory demyelinating disease on IVIG and fibromyalgia presenting to [facility] for further evaluation of cough. Patient is accompanied by her who provide additional history. the patient states that she gets infusions for her autoimmune diseases as well as fibromyalgia. She states that typically the infusions help with a chronic sensation of cough and mucus plugging. She states that this is only seem to worsen. She states that when she would normally start feeling better and producing sputum, this does not happen. She states now she has a horrible cough that is unrelenting. She states she is barely able to do any activities without becoming dyspneic and coughing yellow to green sputum. She states that she feels dyspneic at rest. Patient reports tightness in her throat and in her chest. It occasionally makes radiating chest pain. She states that she does not carry a diagnosis of COPD or asthma but she was prescribed Breo elliptica which helps her from time to time. She states that she is currently out of this prescription. They deny fever or chills. While she does have a cough, she denies any other congestion or cold-like symptoms. Denies chest pain or palpitations. They deny abdominal pain, nausea and vomiting. No urinary complaints. No recent changes in bowel movements. Patient denies recent changes in medications or OTC supplements. Patient offers no other complaints, today. ADDITIONAL HISTORY OBTAINED: Per HPI Chronic Medical/Social Conditions Affecting Care: Per HPI PAST MEDICAL HISTORY: See Below PAST SURGICAL HISTORY: See Below FAMILY HISTORY: See Below SOCIAL HISTORY: See Below HOME MEDICATIONS: See Below ALLERGIES: See Below VITALS: See Below PHYSICAL EXAMINATION: GENERAL: Sitting up in bed, alert, generally ill-appearing, well nourished, no distress, non-toxic EYE EXAM: normal conjunctiva. OROPHARYNX: no exudate, no erythema, lips, buccal mucosa, and tongue normal and mucous membranes are moist NECK: supple, no nuchal rigidity, no adenopathy, non-tender LUNGS: Decreased air movement in all lung spencer. No significant wheezing, rhonchi or stridor. Normal chest wall mechanics HEART: no murmurs, regular rate, regular rhythm ABDOMEN: abdomen soft, non-tender, no masses, no rebound or guarding. BACK: Back is symmetrical on inspection and there is no deformity, no midline tenderness, no CVA tenderness. SKIN: no rashes and no bruising UPPER EXTREMITIES: upper extremities are grossly normal. LOWER EXTREMITIES: No pitting edema. NEURO EXAM: Normal sensorium, GCS 15, normal speech, no gross weakness of arms, no gross weakness of legs. MEDICAL DECISION MAKING: Differential diagnoses includes but not limited to reactive airway disease, viral URI, globus sensation, esophageal foreign body, food bolus, PNA, hypervolemia/pulmonary edema, CHF exacerbation, COPD exacerbation, PE, pneumothorax, anxiety/psychogenic, esophageal dysmotility, achalasia In summary, this is a 69 year old female who presented with productive cough. Differential as above. Nursing notes and pertinent past medical records reviewed. Vital signs reviewed and the patient is hypertensive but otherwise afebrile and hemodynamically stable. She appears in no acute respiratory distress but uncomfortable and irritated with the amount of coughing. History and presentation revealed multiple comorbidities and unclear diagnosis of COPD. Patient does endorse that she takes Breo elliptica. States that she ran out of her prescription. States that the sensation of a mucous plug and productive cough is not new and has been an ongoing issue but this normally improves with her infusions. Physical examination revealed as above. As a result of my initial evaluation, I suspect this is an acute on chronic issue but difficult to exclude pneumonia, viral URI, and other etiologies of her cough and dyspnea. I doubt that this is esophageal in nature including dysmotility and achalasia as well as a food bolus. This is still a possibility but I do feel her symptoms are more likely related to the pulmonary system. She has decreased air movement in all lung spencer. We will trial a DuoNeb to see if this helps with improvement. Plan for basic labs and a chest x-ray. Patient felt to be low risk for pulmonary embolism but still a possible etiology. Plan for chest x-ray prior to further investigations for PE. Diagnostics interpreted by me include cardiac monitoring as listed below: -Cardiac Monitoring: An order was placed for continuous cardiac monitoring. The monitor shows a rate of 60-80 with regular rhythm. Patient completed laboratory studies and imaging. Results independently interpreted by me are no significant anemia or leukocytosis. Patient's electrolytes are normal. Normal LFTs. Patient has an ZAN on CMP. The patient was managed with DuoNebs and IV fluid resuscitation. The patient has a complex medical history with frequent cough and dyspnea. CT PE study was independently interpreted by me as negative for large saddle pulmonary embolism. The study does show evidence of pneumonia. Given community-acquired pneumonia, I do feel the patient would likely benefit from admission at this time. Patient was started on IV ceftriaxone and doxycycline. She was managed with DuoNebs. She did report improvement. Patient does appear to have an ZAN as well. Recommended admission and the hospitalist was agreeable. Ultimately, the decision was made to admit the patient for pneumonia complicated by chronic cough and dyspnea as well as an ZAN. I discussed the case with the hospitalist service via telephone/TigerText and they are agreeable to admit the patient to their services. Based on the above, including the patient's age, coexisting illnesses, labs, imaging, and exam findings the decision to treat as an inpatient. I discussed the patient with the hospitalist team who recommended admission to their services. They received the medications, treatments, interventions indicated above and their condition remained stable. I discussed my findings with the patient and their family and they understand and agree with the treatment plan. All patient / family questions were answered to their satisfaction. Consults/Care Managements Discussions: Per [facility] ER treatment provided: See above Procedures:none Critical Care: None The chart was completed utilizing Urlist Speech voice recognition software. Grammatical errors, random word insertions, pronoun errors, and incomplete sentences are an occasional consequence of this system due to software limitations, ambient noise, and hardware issues. Any formal questions or concerns about the content, text, or information contained within the body of this dictation should be directly addressed to the physician for clarification. Past Med/Surg History Problem List (Updated 03/23/25 @ 14:20 by Luis Miranda DO) Chronic cough (Acute) ZAN (acute kidney injury) (Acute) Community acquired pneumonia (Acute) Pneumonia ZAN (acute kidney injury) Generalized weakness Diarrhea (Acute) Facial paresthesia (Acute) Facial pain (Acute) Diverticulitis (Acute) History of penicillin allergy History of Clostridioides difficile colitis Failure of outpatient treatment (Acute) Diverticulitis (Acute) Pelvic and perineal pain COVID-19 (Acute) Neurogenic bladder Recurrent UTI Morbid obesity NAFLD (nonalcoholic fatty liver disease) Pancreatitis, gallstone RSD (reflex sympathetic dystrophy) Rectocele Snoring Mature cataract Immunosuppressed status HLD (hyperlipidemia) Dry eye syndrome Depression Constipation CKD (chronic kidney disease), stage III Carotid artery plaque Atopic dermatitis Presbyopia Amaurosis fugax Abnormal colonoscopy Medical History Hx of pancreatitis NAFLD (nonalcoholic fatty liver disease) Chronic kidney disease (CKD), stage III (moderate) History of COVID-19 2021- resolved Hx MRSA infection (2023) in urine, treated, unsure of month- treated by pcp dr. arellano [facility] Carotid artery plaque Kidney stones small stone present Neurogenic bladder follows with urologist at [place] Hx: UTI (urinary tract infection) frequent, follows with a urologist at [place] Bradycardia follows with dr. lara cardio at [facility] julianne arnold (will see in september) Lung nodules will see pulm at [facility] in August 2024 Hx of sleep apnea cpap in past, no longer uses COPD (chronic obstructive pulmonary disease) Hx of seizure disorder (2019) "grand mal seizure" with infusion of lidocaine - 2019- pain physician Dr. Rylan Matthews - private practice - only time pt.ever had a seizure Small fiber neuropathy had IVIG infusions in past; follows with Neurologist in [place], [place] Depression Dry eye syndrome RSD (reflex sympathetic dystrophy) had infusions of ketamine by physician at [facility] for treatment, now follows with same Neuro located in [place], [place] - pt. states she has a protocol from 2018 to use prior to surgeries that was written up by this neurologist - advised to bring it with her dos CRPS (complex regional pain syndrome type I) Hx of Clostridium difficile infection (2011) treated at the time, no problems since Hx of fracture of ankle both ankles History of diverticulitis 05/2024 HLD (hyperlipidemia) Hx of retinal detachment both eyes, had surgery Surgical History History of cystoscopy follows with urologist at [place] Hx of cholecystectomy (2011) S/P placement of nerve stimulator (2008) had dorsal stimulator placed and removed at [facility] (for CRPS) History of dental surgery dental posts and bridge/ dental tattoo History of carpal tunnel surgery of right wrist plus ulnar nerve Hx of eye surgery multiple: right eye vitrectomy, cataract removal both eyes retinal detachment repair left eye - additional surgery to keep retina in place- black cataract now present- have very little vision Hx of tubal ligation (1984) Hx of ovarian cystectomy right side History of ankle surgery left ankle, many years ago Hx of colonoscopy Family History Father Aortic aneurysm Bladder cancer Family history of prostate carcinoma Heart disease Hyperlipidemia Aunt COPD (chronic obstructive pulmonary disease) Brother Diabetes Mother Hypertension Cataract Glaucoma Social History Smoking Status: Former smoker Tobacco Type: Cigarettes Second Hand Exposure: No; Do You Dip or Chew Tobacco: No; Hx Alcohol Use: No Hx Substance Use: No Preferred Language: Moroccan Communication Ability: Effective Minor League Baseball Player Required: No Beliefs That Will Affect Care: None marital status: Current Living Situation: Spouse and Family Other Information That Helps Us Care for You: No Feels Safe at Home: Yes Safety Concerns: Feels Safe At This Time Assistive Devices: Cane, Glasses and Stair Lift Allergies Allergies Allergy/AdvReac Type Severity Reaction Status Date / Time Iodinated Contrast Media Allergy Severe Anaphylaxis Verified 03/22/25 18:29 lidocaine Allergy Severe INFUSION--S Verified 03/22/25 18:29 EIZURE cephalexin [From Keflex] Allergy Intermediate HARD Verified 03/22/25 18:29 REDDENED, FRANCISCO-LIKE AREA ON ARM AFTER PO DOSE Latex, Natural Rubber Allergy Intermediate ITCHY RASH Verified 03/22/25 18:29 nickel Allergy Intermediate ITCHY RASH Verified 03/22/25 18:29 Penicillins Allergy Intermediate HARD Verified 03/22/25 18:29 REDDENED, FRANCISCO-LIKE AREA ON ARM AFTER PO DOSE. amoxicillin [From Augmentin] Allergy Mild Nausea Verified 03/22/25 18:29 clavulanic acid Allergy Mild Nausea Verified 03/22/25 18:29 [From Augmentin] prochlorperazine AdvReac Intermediate MUSCLE Verified 03/22/25 18:29 [From Compazine] SPASMS THAT CAUSED NECK TO CONTORT Home Meds Home Medications Medication Instructions Recorded Confirmed cholecalciferol (vitamin D3) 50 50 mcg PO DAILY 08/31/22 03/22/25 mcg (2,000 unit) capsule mecobalamin (vitamin B12) 500 mcg 500 mcg PO Q OTHER DAY 08/31/22 03/22/25 chewable tablet polyethylene glycol 3350 17 8.5 g PO BID PRN Constipation 08/31/22 03/22/25 gram/dose oral powder (Miralax) amlodipine 2.5 mg tablet See Rx Instructions .Route .COMPLEX 07/26/23 03/22/25 bupropion HCl 150 mg 24 hr tablet, 150 mg PO TID 07/26/23 03/22/25 extended release pregabalin 75 mg capsule 75 mg PO BID 07/26/23 03/22/25 vitamin B complex 1 tab PO Q OTHER DAY 07/26/23 03/22/25 ascorbic acid (vitamin C) 500 mg 500 mg PO DAILY 08/24/23 03/22/25 tablet (Vitamin C) L.acidophilus-bif.longum 15 mg (1 1 cap PO DAILY ##0 04/05/24 03/22/25 billion cell)capsule,delayed release (Probiotic Pearls) Saccharomyces boulardii 250 mg 250 mg PO DAILY PRN diverticulitis 04/05/24 03/22/25 capsule (Florastor) flareup ##0 rosuvastatin 5 mg tablet 5 mg PO QAM 04/05/24 03/22/25 aspirin 81 mg capsule 81 mg PO QAM 08/01/24 03/22/25 immune globulin,gamma 0 ml IV DIRECTED 03/22/25 03/22/25 (IgG)-ifas-glycine 10 % intravenous solution (Panzyga) naltrexone 4.5 mg capsule 4.5 mg PO DAILY 03/22/25 03/22/25 riboflavin (vitamin B2) 100 mg 200 mg PO DAILY 03/22/25 03/22/25 tablet (Vitamin B-2) ruxolitinib 1.5 % topical cream 1 applic topical DAILY PRN 03/22/25 03/22/25 (Opvandanaura) DIRECTED Results & Data (ED) Vital Signs Vital Signs - 24 hr 03/22/25 14:48 03/22/25 17:19 03/22/25 18:00 Temperature 37.2 C Temperature Source Temporal Artery Scan Pulse Rate 63 Pulse Rate [Apical] 64 Pulse Rate [Finger] 72 Pulse Rate from SpO2 Sensor Pulse Rhythm [Apical] Regular Pulse Rhythm [Finger] Irregular Pulse Strength [Apical] Normal Respiratory Rate 18 18 16 Respiratory Effort / Characteristics Non-Labored Spontaneous Non-Labored Spontaneous Spontaneous Short of Breath Respiratory Depth Normal Normal Normal Respiratory Pattern Regular Blood Pressure 171/91 H Blood Pressure [Right Arm] 158/94 H 130/83 Blood Pressure Mean 117 Blood Pressure Mean [Right Arm] 115 98 Blood Pressure Position Sitting Blood Pressure Position [Right Arm] Pulse Oximetry 98 95 97 Oxygen Delivery Method Room Air Room Air Room Air Sepsis Recent Fever Within 48 Hours No Sepsis New/Unexplained Change in Mental Status No Sepsis Action Taken by Nursing No Action Required 03/22/25 18:30 03/22/25 18:49 03/22/25 19:00 Temperature Temperature Source Pulse Rate 68 67 Pulse Rate [Apical] 68 Pulse Rate [Finger] Pulse Rate from SpO2 Sensor Pulse Rhythm [Apical] Regular Pulse Rhythm [Finger] Pulse Strength [Apical] Normal Respiratory Rate 16 17 Respiratory Effort / Characteristics Non-Labored Spontaneous Respiratory Depth Normal Respiratory Pattern Regular Blood Pressure 152/69 H Blood Pressure [Right Arm] 122/95 Blood Pressure Mean 88 Blood Pressure Mean [Right Arm] 104 Blood Pressure Position Blood Pressure Position [Right Arm] Semi-fowlers Pulse Oximetry 96 96 Oxygen Delivery Method Room Air Room Air Sepsis Recent Fever Within 48 Hours Sepsis New/Unexplained Change in Mental Status Sepsis Action Taken by Nursing 03/22/25 19:30 03/22/25 20:01 03/22/25 21:19 Temperature Temperature Source Pulse Rate 66 70 74 Pulse Rate [Apical] Pulse Rate [Finger] Pulse Rate from SpO2 Sensor 71 Pulse Rhythm [Apical] Pulse Rhythm [Finger] Pulse Strength [Apical] Respiratory Rate 17 16 18 Respiratory Effort / Characteristics Respiratory Depth Respiratory Pattern Blood Pressure 129/57 L 135/64 159/90 H Blood Pressure [Right Arm] Blood Pressure Mean 77 96 113 Blood Pressure Mean [Right Arm] Blood Pressure Position Blood Pressure Position [Right Arm] Pulse Oximetry 97 97 100 Oxygen Delivery Method Room Air Room Air Sepsis Recent Fever Within 48 Hours Sepsis New/Unexplained Change in Mental Status Sepsis Action Taken by Nursing Laboratory Data 03/23/25 07:02 03/23/25 07:02 Lab Results 03/22/25 Range/Units 16:11 WBC 8.01 (4.8-10.8) K/ul RBC 4.31 (4.20-5.40) M/uL Hgb 13.1 (12.0-16.0) g/dl Hct 38.2 (37.0-47.0) % MCV 88.6 (80.0-100.0) fL MCH 30.4 (25.0-34.0) pg MCHC 34.3 (32.0-36.0) g/dL RDW Std Deviation 45.3 (36.4-46.3) fL RDW Coeff of Catherine 13.9 (11.5-14.5) % Plt Count 252 (130-400) K/uL MPV 10.5 (9.4-12.4) fL Immature Gran % (Auto) 0.2 % Neut % (Auto) 60.9 % Lymph % (Auto) 27.7 % [place] % (Auto) 7.6 % Eos % (Auto) 3.1 % Baso % (Auto) 0.5 % Neut # (Auto) 4.87 (1.40-6.50) K/uL Lymph # (Auto) 2.22 (1.20-3.40) K/uL [place] # (Auto) 0.61 H (0.11-0.59) K/uL Eos # (Auto) 0.25 (0.00-0.50) K/uL Baso # (Auto) 0.04 (0.00-0.20) K/uL Immature Gran # (Auto) 0.02 (0.01-0.20) K/uL Sodium 136 (136-145) mmol/L Potassium 4.0 (3.5-5.1) mmol/L Chloride 104 (98-107) mmol/L Carbon Dioxide 26 (21-32) mmol/L Anion Gap 6 (3-11) BUN 16 (6-23) mg/dl Creatinine 1.31 H (0.6-1.2) mg/dl Est Cr Clr Drug Dosing Not Reportable eGFR 44.38 BUN/Creatinine Ratio 12.2 (10-20) Glucose 91 (70-99(Fasting)) mg/dl Calcium 9.1 (8.6-10.3) mg/dl Total Bilirubin 0.3 (0.2-1.0) mg/dl AST 26 (13-39) U/L ALT 22 (7-52) U/L Alkaline Phosphatase 65 (34-104) U/L Total Protein 8.3 (6.0-8.3) gm/dl Albumin 4.3 (3.4-5.0) gm/dl Globulin 4.0 (2.5-4.0) gm/dl Albumin/Globulin Ratio 1.1 (0.9-2) SARS-CoV-2 (PCR) NEGATIVE (Negative) Influenza Type A (PCR) Negative (Neg) Influenza Type B (PCR) Negative (Neg) RSV (RT-PCR) Negative (Neg) Administered Medications Amlodipine Besylate (Amlodipine Besylate 5 Mg Tab) 2.5 mg PO QAM [facility] Stop: 04/22/25 08:59 Last Admin: 03/23/25 10:44 Dose: 2.5 mg Documented By: KILLIAN Amlodipine Besylate (Amlodipine Besylate 5 Mg Tab) 1.25 mg PO QPM [facility] Stop: 04/21/25 22:27 Last Admin: 03/22/25 23:43 Dose: 1.25 mg Documented By: DARRELL Aspirin (Aspirin 81 Mg Ectab) 81 mg PO QAM [facility] Stop: 04/22/25 08:59 Last Admin: 03/23/25 10:44 Dose: 81 mg Documented By: KILLIAN Bupropion HCl (Bupropion Xl 150 Mg Tabcr) 150 mg PO TID [facility] Stop: 04/21/25 22:27 Last Admin: 03/23/25 10:44 Dose: 150 mg Documented By: Admin: 03/22/25 23:43 Dose: 150 mg Documented By: DARRELL Fluticasone/Vilanterol (Fluticasone/Vilanterol 100/25mcg 14 Puffs/Inhaler) 1 puffs INH DAILY [facility] Stop: 04/22/25 08:59 Last Admin: 03/23/25 10:44 Dose: 1 puffs Documented By: KILLIAN Parenteral Electrolytes (Plasma-Lyte A Ph 7.4) 1,000 mls @ 80 mls/hr IV .[id number] [facility] Stop: 03/23/25 14:44 Last Admin: 03/23/25 02:53 Dose: 80 mls/hr Documented By: DAWSON Lactobacillus Acidophilus (Advanced Probiotic 625 Mg Capsule) 1,250 mg PO DAILY [facility] Stop: 04/22/25 08:59 Last Admin: 03/23/25 10:45 Dose: 1,250 mg Documented By: KILLIAN Miscellaneous (Naltrexone 4.5 Mg - Order Awaiting Action) 1 each N/A QS [facility] Stop: 04/22/25 00:00 Last Admin: 03/23/25 10:42 Dose: Not Given Documented By: Admin: 03/23/25 01:13 Dose: Not Given Documented By: DAWSON Miscellaneous (Ruxolitinib [Opzelura] 1.5 % Cream - Order Awaiting Action) 1 each N/A QS [facility] Stop: 04/22/25 00:00 Last Admin: 03/23/25 10:43 Dose: Not Given Documented By: Admin: 03/23/25 01:13 Dose: Not Given Documented By: DAWSON Polyethylene Glycol (Polyethylene (Miralax) 17 Gm Pack) 8.5 gm PO BID PRN PRN Reason: Constipation Stop: 04/21/25 22:27 Last Admin: 03/23/25 10:48 Dose: 8.5 gm Documented By: KILLIAN Pregabalin (Pregabalin 75 Mg Cap) 75 mg PO BID [facility] Stop: 04/21/25 22:27 Last Admin: 03/23/25 10:48 Dose: 75 mg Documented By: Admin: 03/22/25 23:43 Dose: 75 mg Documented By: DARRELL Rosuvastatin Calcium (Rosuvastatin Calcium 5 Mg Tab) 5 mg PO QAM [facility] Stop: 04/22/25 08:59 Last Admin: 03/23/25 10:45 Dose: 5 mg Documented By: KILLIAN Discontinued Medications Albuterol (Albut/Ipratrop 3mg/0.5mg Neb 3 Ml Vial) 3 ml NEB NOW STA; Protocol Stop: 03/22/25 17:36 Last Admin: 03/22/25 17:52 Dose: 3 ml Documented By: BRITT Albuterol (Albut/Ipratrop 3mg/0.5mg Neb 3 Ml Vial) 3 ml NEB NOW STA; Protocol Stop: 03/22/25 19:50 Last Admin: 03/22/25 20:15 Dose: 3 ml Documented By: BRITT Doxycycline Hyclate (Doxycycline Hyclate 100 Mg Cap) 100 mg PO NOW STA Stop: 03/22/25 19:50 Last Admin: 03/22/25 20:58 Dose: Not Given Documented By: BRITT Parenteral Electrolytes (Plasma-Lyte A Ph 7.4) 1,000 mls @ 999 mls/hr IV .Q1H1M ONE Stop: 03/22/25 18:35 Last Infusion: 03/22/25 18:50 Dose: Infused Documented By: Admin: 03/22/25 17:52 Dose: 999 mls/hr Documented By: BRITT Famotidine (Pepcid 20mg Iv Push) 20 mg in 5 mls @ 2.5 mls/min IV NOW STA Stop: 03/22/25 17:51 Last Admin: 03/22/25 17:56 Dose: 2.5 mls/min Documented By: BRITT Ceftriaxone Sodium (Rocephin) 1,000 mg in 50 mls @ 100 mls/hr IV NOW STA Stop: 03/22/25 20:18 Last Infusion: 03/22/25 20:58 Dose: Infused Documented By: Admin: 03/22/25 20:20 Dose: 100 mls/hr Documented By: BRITT Azithromycin (Zithromax) 500 mg in 255 mls @ 127.5 mls/hr IV NOW STA Stop: 03/22/25 22:01 Last Infusion: 03/22/25 23:26 Dose: Infused Documented By: Admin: 03/22/25 21:13 Dose: 127.5 mls/hr Documented By: BRITT Ondansetron HCl (Ondansetron Inj 2 Mg/Ml 2 Ml Vial) 4 mg IV NOW STA Stop: 03/22/25 17:51 Last Admin: 03/22/25 17:56 Dose: 4 mg Documented By: BRITT Imaging Data Radiologist's Impression: Chest X-Ray 03/22/25 14:51 EXAM: X-ray chest one-view portable CLINICAL HISTORY: Cough PRIORS: 11/29/2024 09/08/2024 TECHNIQUE: AP view chest FINDINGS: Lung volumes mildly diminished. Patient rotated. No airspace consolidation, effusion or congestive changes. Heart size is top normal. No pneumothorax. Trachea is patent. Osseous structures demonstrate no acute abnormality. No radiopaque foreign body. IMPRESSION: No plain film evidence of an acute cardiopulmonary process. If clinically appropriate, chest CT could be considered. Electronically signed by Adele Esparza 03-22-2025 4:[address] 03/22/25 17:35 EXAMINATION: Chest CT without CLINICAL HISTORY: Evaluate for pneumonia, obstruction COMPARISON: None TECHNIQUE: Contiguous axial images were obtained through the chest without the use of intravenous contrast. Sagittal and coronal reformations are supplied. FINDINGS: Advanced kyphosis is noted distorting the anatomy. Mild osseous demineralization present with mild to moderate degenerative change throughout the thoracic spine. No high-grade compression fracture. The chest is well-expanded. Mild centrilobular pulmonary emphysema present. No confluent opacification. Patchy region of ground glass attenuation noted in the left upper lobe, David hilar. No confluent opacification. No pleural effusion. No mucous plugging. Trachea and mainstem bronchi are patent. Heart size is normal. No adenopathy in the chest. Moderate hiatal hernia. Moderate atherosclerotic disease. IMPRESSION: 1. Subtle patchy ground glass attenuation in the left upper lobe which may be related to hypoventilatory changes versus early pneumonia in the proper clinical setting. 2. Moderate hiatal hernia. ACT 112: Positive. There are findings on this examination that require communication between the performing entity and the patient following Patient Test Result Information Act ([place] ACT 112) guidelines. Electronically signed by Adele Esparza 03-22-2025 7:33 PM Discharge Plan Visit Data Chief Complaint: Cough Stated Complaint: COUGHING ED Provider: Luis Miranda Discharge Problem: Community acquired pneumonia, ZAN (acute kidney injury), Chronic cough Patient Disposition: Admitted As Inpatient Condition: Fair Discharge Instructions Interventions: ED Discharge Assessment Last Done: 03/22/25 22:28
[2025-03-22] MEDS: cefTRIAXone SODIUM 1,000 MG/50 ML BAG IV STA (20:20)
--- NOTE | 2025-03-22 20:20 | History & Physical Report ---
Date of Service March 22, 2025 Assessment & Plan (1) Generalized weakness: (2) ZAN (acute kidney injury): (3) Pneumonia: Plan Patt is a 69 yo female with with a PMH psoriatic arthritis, osteoarthritis, fibromyalgia and chronic inflammatory demyelinating polyneuropathy (CIDP), HTN, CKD stage III, Hyperlipidemia, COPD that presented to the ED due to worsening sputum production, cough and dyspnea. Onset of symptoms last week, states today sputum production worsen. She denied any chills or fever. Patient is currently currently receiving infliximab psoriasis arthritis osteoarthritis and IVIG treatment for CIDP. CT chest with findings of early pneumonia. WBC: 8.01. HGb 1 3. Creatinine elevated: 1.31. Normal potassium. Bio fire. Patient states feeling weak and unable to go back home Patient will be admitted for further IV fluids for ZAN, abd ABX ZAN - Patient with hx of CKD stage III. (Baseline 0.9-1.0) -Likely pre renal, patient dry on exam - s/p 1L plasmalyte in Ed - continue gently fluids Plasmalyte 80ml/hr - encourage PO intake - Monitor with am labs Pneumonia/ COPD - Patient with worsening cough, sputum production, and weakness - CT with findings concerning of pneumonia. - Normal WBC. No fever. Patient on room air on examination - IV Azithromycin 500 mg given on admission, continue 250 mg daily for 5 days - IV Ceftriaxone started on Ed, will continue - Restart home Breo Ellipta - duoneb as needed - will hold PO steroids for now, consider if worsen - LAbs am Fibromyalgia currently on infliximab continue pregabalin CIDP - Receiving IVIG HTN continue amlodipine DVT prophylaxis: SCDs, ambulation Dispo:Med surg/ Telemetry History of Present Illness Primary Care Provider: NO PCP Patt is a 69 yo female with with a PMH psoriatic arthritis, osteoarthritis, fibromyalgia and chronic inflammatory demyelinating polyneuropathy (CIDP), HTN, CKD stage III, Hyperlipidemia, COPD that presented to the ED due to worsening sputum production, cough and dyspnea. Onset of symptoms last week, states today sputum production worsen. She denied any chills or fever. Patient is currently currently receiving infliximab psoriasis arthritis osteoarthritis and IVIG treatment for CIDP. Patient states feeling to weak now. Denied any SOB, palpitations. Denied any abdominal pain nausea, or vomiting. Denied any dysuria, frequency or urgency Allergies Allergy/AdvReac Type Severity Reaction Status Date / Time Iodinated Contrast Media Allergy Severe Anaphylaxis Verified 03/22/25 18:29 lidocaine Allergy Severe INFUSION--S Verified 03/22/25 18:29 EIZURE cephalexin [From Keflex] Allergy Intermediate HARD Verified 03/22/25 18:29 REDDENED, FRANCISCO-LIKE AREA ON ARM AFTER PO DOSE Latex, Natural Rubber Allergy Intermediate ITCHY RASH Verified 03/22/25 18:29 nickel Allergy Intermediate ITCHY RASH Verified 03/22/25 18:29 Penicillins Allergy Intermediate HARD Verified 03/22/25 18:29 REDDENED, FRANCISCO-LIKE AREA ON ARM AFTER PO DOSE. amoxicillin [From Augmentin] Allergy Mild Nausea Verified 03/22/25 18:29 clavulanic acid Allergy Mild Nausea Verified 03/22/25 18:29 [From Augmentin] prochlorperazine AdvReac Intermediate MUSCLE Verified 03/22/25 18:29 [From Compazine] SPASMS THAT CAUSED NECK TO CONTORT Home Medications Medication Instructions Recorded Confirmed Type cholecalciferol (vitamin D3) 50 50 mcg PO DAILY 08/31/22 03/22/25 History mcg (2,000 unit) capsule mecobalamin (vitamin B12) 500 mcg 500 mcg PO Q OTHER DAY 08/31/22 03/22/25 History chewable tablet polyethylene glycol 3350 17 8.5 g PO BID PRN Constipation 08/31/22 03/22/25 History gram/dose oral powder (Miralax) amlodipine 2.5 mg tablet See Rx Instructions .Route .COMPLEX 07/26/23 03/22/25 History bupropion HCl 150 mg 24 hr tablet, 150 mg PO TID 07/26/23 03/22/25 History extended release pregabalin 75 mg capsule 75 mg PO BID 07/26/23 03/22/25 History vitamin B complex 1 tab PO Q OTHER DAY 07/26/23 03/22/25 History ascorbic acid (vitamin C) 500 mg 500 mg PO DAILY 08/24/23 03/22/25 History tablet (Vitamin C) L.acidophilus-bif.longum 15 mg (1 1 cap PO DAILY ##0 04/05/24 03/22/25 History billion cell)capsule,delayed release (Probiotic Pearls) Saccharomyces boulardii 250 mg 250 mg PO DAILY PRN diverticulitis 04/05/24 03/22/25 History capsule (Florastor) flareup ##0 rosuvastatin 5 mg tablet 5 mg PO QAM 04/05/24 03/22/25 History aspirin 81 mg capsule 81 mg PO QAM 08/01/24 03/22/25 History immune globulin,gamma 0 ml IV DIRECTED 03/22/25 03/22/25 History (IgG)-ifas-glycine 10 % intravenous solution (Panzyga) naltrexone 4.5 mg capsule 4.5 mg PO DAILY 03/22/25 03/22/25 History riboflavin (vitamin B2) 100 mg 200 mg PO DAILY 03/22/25 03/22/25 History tablet (Vitamin B-2) ruxolitinib 1.5 % topical cream 1 applic topical DAILY PRN 03/22/25 03/22/25 History (Opzelura) DIRECTED Past Med/Surg History Problem List (Updated 03/23/25 @ 14:20 by Luis Miranda, ) Chronic cough (Acute) ZAN (acute kidney injury) (Acute) Community acquired pneumonia (Acute) Pneumonia ZAN (acute kidney injury) Generalized weakness Diarrhea (Acute) Facial paresthesia (Acute) Facial pain (Acute) Diverticulitis (Acute) History of penicillin allergy History of Clostridioides difficile colitis Failure of outpatient treatment (Acute) Diverticulitis (Acute) Pelvic and perineal pain COVID-19 (Acute) Neurogenic bladder Recurrent UTI Morbid obesity NAFLD (nonalcoholic fatty liver disease) Pancreatitis, gallstone RSD (reflex sympathetic dystrophy) Rectocele Snoring Mature cataract Immunosuppressed status HLD (hyperlipidemia) Dry eye syndrome Depression Constipation CKD (chronic kidney disease), stage III Carotid artery plaque Atopic dermatitis Presbyopia Amaurosis fugax Abnormal colonoscopy Medical History Hx of pancreatitis NAFLD (nonalcoholic fatty liver disease) Chronic kidney disease (CKD), stage III (moderate) History of COVID-19 2021- resolved Hx MRSA infection (2023) in urine, treated, unsure of month- treated by pcp dr. arellano [facility] Carotid artery plaque Kidney stones small stone present Neurogenic bladder follows with urologist at [place] Hx: UTI (urinary tract infection) frequent, follows with a urologist at [place] Bradycardia follows with dr. lara cardio at [facility] julianne arnold (will see in september) Lung nodules will see pulm at [facility] in August 2024 Hx of sleep apnea cpap in past, no longer uses COPD (chronic obstructive pulmonary disease) Hx of seizure disorder (2019) "grand mal seizure" with infusion of lidocaine - 2019- pain physician Dr. Rylan Matthews - private practice - only time pt.ever had a seizure Small fiber neuropathy had IVIG infusions in past; follows with Neurologist in [place], [place] Depression Dry eye syndrome RSD (reflex sympathetic dystrophy) had infusions of ketamine by physician at [facility] for treatment, now follows with same Neuro located in [place], [place] - pt. states she has a protocol from 2018 to use prior to surgeries that was written up by this neurologist - advised to bring it with her dos CRPS (complex regional pain syndrome type I) Hx of Clostridium difficile infection (2011) treated at the time, no problems since Hx of fracture of ankle both ankles History of diverticulitis 05/2024 HLD (hyperlipidemia) Hx of retinal detachment both eyes, had surgery Surgical History History of cystoscopy follows with urologist at [place] Hx of cholecystectomy (2011) S/P placement of nerve stimulator (2008) had dorsal stimulator placed and removed at [facility] (for CRPS) History of dental surgery dental posts and bridge/ dental tattoo History of carpal tunnel surgery of right wrist plus ulnar nerve Hx of eye surgery multiple: right eye vitrectomy, cataract removal both eyes retinal detachment repair left eye - additional surgery to keep retina in place- black cataract now present- have very little vision Hx of tubal ligation (1984) Hx of ovarian cystectomy right side History of ankle surgery left ankle, many years ago Hx of colonoscopy Family History Father Aortic aneurysm Bladder cancer Family history of prostate carcinoma Heart disease Hyperlipidemia Aunt COPD (chronic obstructive pulmonary disease) Brother Diabetes Mother Hypertension Cataract Glaucoma Social History Smoking Status: Former smoker Tobacco Type: Cigarettes Second Hand Exposure: No; Do You Dip or Chew Tobacco: No; Hx Alcohol Use: No Hx Substance Use: No Preferred Language: Japanese Communication Ability: Effective 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 Beliefs That Will Affect Care: None marital status: Current Living Situation: Spouse and Family Other Information That Helps Us Care for You: No Feels Safe at Home: Yes Safety Concerns: Feels Safe At This Time Assistive Devices: Cane, Lift Chair, Walker and Wheelchair Review of Systems Review of Systems: as per hpi Physical Exam Constitutional: well developed and well nourished; no acute distress Eyes: PERRL, conjunctivae normal, anicteric sclerae Neck: trachea midline, no thyromegaly Respiratory: normal respiratory effort and + cough; no respiratory distress and no labored breathing Auscultation: + rhonchi; no crackles and no wheezes Cardiovascular: RRR, no murmur, no edema Gastrointestinal (Abdomen): normal bowel sounds, soft, nontender, no hepatosplenomegaly Skin: no rashes, warm and dry Psychiatric: A+Ox3, euthymic affect Results & Data Results & Data Vital Signs (Past 12 Hours) Vital Signs Temp Pulse Pulse Pulse Resp BP BP 03/22/25 18:49 68 03/22/25 18:30 68 16 122/95 03/22/25 18:00 64 16 130/83 03/22/25 17:19 72 18 158/94 H 03/22/25 14:48 37.2 C 63 18 171/91 H Pulse Ox O2 Del Method 03/22/25 18:49 03/22/25 18:30 96 Room Air 03/22/25 18:00 97 Room Air 03/22/25 17:19 95 Room Air 03/22/25 14:48 98 Room Air Supervising Physician Co-Signing Physician Notes Attending addendum: I have physically seen this patient, have supervised the medical residents activities, and agree with the H&P unless as otherwise noted. Assessment and Plan: The patient is a 69-year-old female with past medical history including psoriatic arthritis, osteoarthritis, fibromyalgia, CIDP, hypertension, CKD stage III, hyperlipidemia, and COPD. She presented to the emergency department due to worsening sputum production, cough, and dyspnea on exertion, present over the past week, but worsening over the last [address] chest in the ED showed early pneumonia. Patient with worsening general debilitation and fatigue, admitted for IV therapy, and PT/OT. Laboratories also suggested dehydration with mild acute kidney injury, will receive further IV fluids. Pneumonia/COPD/hypoxia- Azithromycin 500 mg IV today, then 20 mg IV daily for 5 days Ceftriaxone 2 g IV daily Continue Breo Eugeniota Anton every 2 hours as needed Guaifenesin extended release 12 mg p.o. twice daily If needed avoid steroids, could start Pulmicort Respules 0.5 mg inhaled twice daily as inpatient and/or outpatient. Acute kidney injury superimposed on CKD stage III- Creatinine 1.31 on admission, with base 1.03 Status post 1 L Plasma-Lyte in the ED Continue Plasma-Lyte at 80 mL/h x 1 additional liter Follow serial laboratories Fibromyalgia- Continue pregabalin and infliximab CIDP- Has planned IVIG and rituximab in the outpatient setting Hypertension- Continue amlodipine with hold parameters Remaining orders and notations as noted Resident Activity Tracking Resident Involvement: Resident Care Provided Care Provided: Adult [facility]
[2025-03-22] MEDS: DOXYCYCLINE HYCLATE 100 MG CAP PO STA (20:58)
[2025-03-22] MEDS: AZITHROMYCIN 500 MG/255 ML BAG IV STA (21:13)
[2025-03-22] MEDS ORDERED: ACETAMINOPHEN 325 MG TAB PO PRN (22:28)
[2025-03-22] MEDS ORDERED: ONDANSETRON INJ 2 MG/ML 2 ML VIAL IV PRN (22:28)
[2025-03-22] MEDS: PREGABALIN 75 MG CAP PO SCH (23:43)
[2025-03-23] MEDS ORDERED: ALBUT/IPRATROP 3MG/0.5MG NEB 3 ML VIAL NEB PRN (02:26)
[2025-03-23] MEDS: PLASMA-LYTE A 1,000 ML IV SCH (02:53)
[2025-03-23 07:28] LABS: Hematocrit (blood only) 33.6 % (37.0-47.0); Hemoglobin 10.9 g/dl (12.0-16.0); Immature Granulocytes # (auto) 0.01 K/uL (0.01-0.20); Immature Granulocytes % (auto) 0.2 %; Mean Corpuscular Hemoglobin 29.1 pg (25.0-34.0); Mean Corpuscular Volume 89.8 fL (80.0-100.0); Platelet Count 206 K/uL (130-400); RDW Standard Deviation 45.9 fL (36.4-46.3); Red Blood Count 3.74 M/uL (4.20-5.40); White Blood Count 4.75 K/ul (4.8-10.8)
[2025-03-23 07:48] LABS: Anion Gap 4.0 (3-11); Blood Urea Nitrogen 11.0 mg/dl (6-23); Calcium 8.2 mg/dl (8.6-10.3); Carbon Dioxide 26.0 mmol/L (21-32); Chloride 109.0 mmol/L (98-107); Creatinine Clr Calc Pharmacy 56.9 ml/min; Glucose 91.0 mg/dl (70-99(Fasting)); Potassium 4.4 mmol/L (3.5-5.1); Sodium 139.0 mmol/L (136-145)
[2025-03-23] MEDS ORDERED: NON-FORMULARY MEDICATION (Riboflavin (Vitamin B2) [Vitamin B-2] 100 mg Tablet) PO SCH (09:00)
[2025-03-23] MEDS: ASPIRIN 81 MG ECTAB PO SCH (10:44)
[2025-03-23] MEDS: FLUTICASONE/VILANTEROL 100/25MCG 14 PUFFS/INHALER INH SCH (10:44)
[2025-03-23] MEDS: ROSUVASTATIN CALCIUM 5 MG TAB PO SCH (10:45)
[2025-03-23] MEDS: ADVANCED PROBIOTIC 625 MG CAPSULE PO SCH (10:45)
[2025-03-23] MEDS: POLYETHYLENE (MIRALAX) 17 GM PACK PO PRN (10:48)
--- NOTE | 2025-03-23 12:34 | Hospitalist Progress Note ---
Date of Service March 23, 2025 Assessment & Plan (1) Generalized weakness: (2) ZAN (acute kidney injury): (3) Pneumonia: Plan Patt is a 69 yo female with with a PMH psoriatic arthritis, osteoarthritis, fibromyalgia and chronic inflammatory demyelinating polyneuropathy (CIDP), HTN, CKD stage III, Hyperlipidemia, COPD that presented to the ED due to worsening sputum production, cough and dyspnea. Onset of symptoms last week, states today sputum production worsen. She denied any chills or fever. Patient is currently currently receiving infliximab psoriasis arthritis osteoarthritis and IVIG treatment for CIDP. CT chest with findings of early pneumonia. WBC: 8.01. HGb 13. Creatinine elevated: 1.31. Normal potassium. Bio fire. Patient states feeling weak and unable to go back home Patient will be admitted for further IV fluids for ZAN, abd ABX ZAN - Patient with hx of CKD stage III. (Baseline 0.9-1.0) - ZAN resolved Creatinine 0.90 on 03/23. Trend periodically Pneumonia/ COPD - Patient with worsening cough, sputum production, and weakness - CTchest: Suspected left upper lobe pneumonia - Normal WBC. No fever. Remains on room air Continue Rocephin/azithromycin Continue Breo DuoNebs as needed Patient reports that she has an extremely difficult time tolerating oral antibiotics and feels nauseous, more from the antibiotics then from swallowing mucus. She does not feel that she would be able to safely return home to tolerate antibiotics at this time. Does endorse some nausea/stomach upset. Will trial Protonix and Pepcid, Zofran as needed. If doing well then hopefully can transition to oral antibiotics 03/24. Fibromyalgia currently on infliximab continue pregabalin CIDP - Receiving IVIG HTN continue amlodipine DVT prophylaxis: SCDs, ambulation Dispo:Med surg/ Telemetry Admission and Anticipated Discharge Date Admission Date: March 22, 2025 Roque Beltre was seen at the bedside this morning. Reports she feels very tired and nauseous and is coughing up thick green sputum. She know she has difficulty tolerating oral antibiotics and does not feel like she is safe to go home at this time. She does feel a little bit better than yesterday, but notes her sputum production is more active today. She is on infliximab as an outpatient and has a history of CIDP for which she was due to get IVIG on Wednesday. Can contact her coordinating nurse at [phone]. No fevers chills or sweats. No chest pain this morning. Primary concern is fatigue and her sputum production Physical Exam Physical Exam: General: A&Ox3. NAD. Cooperative. HEENT: Atraumatic, normocephalic. Vision and hearing grossly intact Pulm: Crackles in the left upper lobe, trace crackles which clear in the dependent spencer bilaterally. Otherwise clear. No wheezing Cardiac: RRR, -mrg. Radial pulses intact and symmetrical. Abdominal: Nontender, nondistended, soft. BS present. Results & Data Results & Data Vital Signs (Past 12 Hours) Vital Signs Temp Pulse Pulse Pulse Resp BP Pulse Ox 03/23/25 11:39 57 L 03/23/25 11:39 03/23/25 11:24 36.6 C 60 20 127/73 95 03/23/25 08:16 36.4 C L 53 L 18 118/70 98 03/23/25 03:48 36.3 C L 59 L 18 94/55 L 95 03/23/25 01:34 03/23/25 00:57 60 03/23/25 00:49 36.4 C L 59 L 20 141/68 H 97 03/23/25 00:40 61 18 120/56 L 96 O2 Del Method 03/23/25 11:39 03/23/25 11:39 Room Air 03/23/25 11:24 Room Air 03/23/25 08:16 Room Air 03/23/25 03:48 Room Air 03/23/25 01:34 Room Air 03/23/25 00:57 03/23/25 00:49 Room Air 03/23/25 00:40 Room Air PG Care Time/CCT Total # of Minutes Spent Total Time Spent with Patient: Total time spent is greater than 50% in coordination of care (as documented) at patient's floor/unit and/or counseling patient: Coding Level of Care Code 75066 SUB INP/OBS CARE 3/50MIN Diagnoses Generalized weakness R53.1 ZAN (acute kidney injury) N17.9 Pneumonia J18.9
[2025-03-23] MEDS: PANTOprazole 40 MG/10 ML SYR IV ONE (14:14)
[2025-03-23] MEDS: FAMOTIDINE 20MG IV PUSH 20 MG/5 ML SYR IV SCH (14:14)
[2025-03-23] MEDS: AZITHROMYCIN 250 MG in DEXTROSE 5% 250 ML IV SCH (18:16)
[2025-03-23] MEDS: cefTRIAXone SODIUM 1,000 MG/50 ML BAG IV SCH (20:27)
--- NOTE | 2025-03-24 05:45 | Billing Data ---
Date of Service March 24, 2025 Coding Level of Care Code 31364 INT INP/OBS CARE
[2025-03-24 06:27] LABS: Hematocrit (blood only) 31.6 % (37.0-47.0); Hemoglobin 10.6 g/dl (12.0-16.0); Immature Granulocytes # (auto) 0.01 K/uL (0.01-0.20); Immature Granulocytes % (auto) 0.2 %; Mean Corpuscular Hemoglobin 29.6 pg (25.0-34.0); Mean Corpuscular Volume 88.3 fL (80.0-100.0); Platelet Count 204 K/uL (130-400); RDW Standard Deviation 45.1 fL (36.4-46.3); Red Blood Count 3.58 M/uL (4.20-5.40); White Blood Count 5.33 K/ul (4.8-10.8)
[2025-03-24 06:55] LABS: Anion Gap 5.0 (3-11); Blood Urea Nitrogen 12.0 mg/dl (6-23); Calcium 8.3 mg/dl (8.6-10.3); Carbon Dioxide 25.0 mmol/L (21-32); Chloride 109.0 mmol/L (98-107); Creatinine Clr Calc Pharmacy 50.1 ml/min; Glucose 86.0 mg/dl (70-99(Fasting)); Potassium 4.2 mmol/L (3.5-5.1); Sodium 139.0 mmol/L (136-145)
[2025-03-24 08:49] VITALS: TEMP 98.5
[2025-03-24] MEDS: NALTREXONE HCL 4.5 MG PO SCH (10:24)
[2025-03-24 12:58] VITALS: BP 189/98; RESP 18; O2SAT 96
--- NOTE | 2025-03-24 13:20 | Discharge Summary ---
Discharge Summary Date of Service March 24, 2025 Principal Dx & Hospital Course #1 = Principal Diagnosis (1) Generalized weakness: (2) ZAN (acute kidney injury): (3) Pneumonia: Dino Beltre is a 69 yo female with with a PMH psoriatic arthritis, osteoarthritis, fibromyalgia and chronic inflammatory demyelinating polyneuropathy (CIDP), HTN, CKD stage III, Hyperlipidemia, COPD that presented to the ED due to worsening sputum production, cough and dyspnea. Onset of symptoms last week, states today sputum production worsen. She denied any chills or fever. Patient is currently currently receiving infliximab psoriasis arthritis osteoarthritis and IVIG treatment for CIDP. CT chest with findings of early pneumonia. WBC: 8.01. HGb 13. Creatinine elevated: 1.31. Normal potassium. Bio fire. She progressed well, was ambulating independently, and was asymptomatic other than a slightly productive cough for green sputum day of discharge. She was not hypoxic, and was hemodynamically stable. To do as outpatient: 1. Complete 5-day course of antibiotics with cefpodoxime twice daily and azithromycin daily 2. Pepcid/Protonix were prescribed for history of gastritis medicamentosa 3. Zofran prescribed for history of nausea while on antibiotics 4. Follow-up with her outpatient providers and she will discuss whether to delay her Remicade treatment prior to infusion on the 10 11. She will follow-up for her scheduled IVIG on 03/25/2025 ZAN - Patient with hx of CKD stage III. (Baseline 0.9-1.0) - Likely prerenal, dry and admitting exam Resolved and renal function returned to normal at time of discharge Pneumonia/ COPD - Patient with worsening cough, sputum production, and weakness - CT consistent with left upper lobe pneumonia, some ground glass opacities without evidence of abscess or effusion - Normal WBC. No fever. Recovered extremely well on Rocephin/azithromycin MRSA nare negative Home [facility]ron was continued Discharged to complete a 5-day course of antibiotics with conversion to cefpodoxime twice daily and azithromycin therapy Due to history of stomach upset and gastritis medicamentosa she was described Protonix/Pepcid while on antibiotics, and also prescribe Zofran should she develop nausea Fibromyalgia On infliximab. Next dose is not due until 03/16/2025. She will follow-up with her provider let her know that she was recently treated for pneumonia prior to this infusion continue pregabalin CIDP - Receiving IVIG. May get her scheduled infusion on 03/25/2025 .No signs of acute exacerbation during admission. HTN continue amlodipine Admission HPI Per Admitting Provider Patt is a 69 yo female with with a PMH psoriatic arthritis, osteoarthritis, fibromyalgia and chronic inflammatory demyelinating polyneuropathy (CIDP), HTN, CKD stage III, Hyperlipidemia, COPD that presented to the ED due to worsening sputum production, cough and dyspnea. Onset of symptoms last week, states today sputum production worsen. She denied any chills or fever. Patient is currently currently receiving infliximab psoriasis arthritis osteoarthritis and IVIG treatment for CIDP. Patient states feeling to weak now. Denied any SOB, palpitations. Denied any abdominal pain nausea, or vomiting. Denied any dysuria, frequency or urgency Discharge Exam General: A&Ox3. NAD. Cooperative. HEENT: Atraumatic, normocephalic. Vision hearing grossly intact Pulm: CTAB A&P. -wheezes, -rales, -rhonchi. Symmetrical chest rise. No increased work of breathing. No respiratory distress. Cardiac: RRR, -mrg. Radial pulses intact and symmetrical. Abdominal: Nontender, nondistended, soft. BS present. Discharge Plan Discharge Items Patient Disposition: Home - Self-Care Reason For Visit: ZAN, CAP, WEAKNESS Discharge Diagnosis: Left Upper Lobe Pneumonia Condition on Discharge: Fair Activity: Resume your previous activity Non-emergency contact: Primary Care Provider Call non-emergency contact if: you have any medication questions, your symptoms worsen and your pain is not controlled Follow-up/Referrals: PCP,NO [Primary Care Provider] - Diet: Regular Addtl Attending Provider Instructions: You were seen in the hospital for a left upper lobe pneumonia. You clinically improved on an antibiotic combination with ceftriaxone/azithromycin. You have been discharged to continue antibiotics as below. Due to your history of stomach upset with antibiotics Protonix and Pepcid have been prescribed for you as below. You are prescribed an antibiotic, cefpodoxime. Please take cefpodoxime 200 mg by mouth twice daily for 4 days starting the evening of 03/24/2025. This is a distant cousin to penicillin; however it is a near direct equivalent of the IV antibiotic you tolerated extremely well without side effects during your hospital admission You been prescribed an antibiotic, azithromycin. Please take azithromycin 250 mg by mouth once daily in the evening starting the evening of 03/24/2025. You have been prescribed Protonix 40 mg once daily, and famotidine 10 mg twice daily. These are medications that can help prevent your stomach from upset related to gastritis and medications. Please take these for 1 week to help minimize stomach upset; however if you are feeling well you do not need to take these medications. You have been prescribed Zofran for nausea. You may take Zofran up to every 8 hours as needed if you develop acute nausea. Please call your PCP on Wednesday to have a follow-up appointment scheduled for within approximately 1 week If you develop any new or worsening symptoms including fever, chills, sweats, chest pain, chest pressure, difficulty breathing, uncontrolled nausea/vomiting, rash, wheezing, passing out or nearly passing out, bleeding, black/bloody bowel movements, or other new or concerning symptoms please call your primary care physician, or call 911 for re-evaluation in the emergency department if you are very concerned. Pending Studies at Discharge: No Stand-Alone Forms: My [facility], Smoking Cessation Medications and DC Order Prescriptions: New cefpodoxime 200 mg tablet 200 mg PO BID 4 Days Qty: 8 0RF Rx Instructions: must administer with a meal/food. Take first dose morning of 03/25/2025. azithromycin 250 mg tablet 250 mg PO DAILY Qty: 4 0RF ondansetron 4 mg tablet,disintegrating 4 mg PO Q8H PRN (Reason: nausea and vomiting) 3 Days Qty: 9 0RF pantoprazole 40 mg tablet,delayed release (DR/EC) 40 mg PO DAILY 7 Days Qty: 7 0RF famotidine 10 mg tablet 10 mg PO BID Qty: 14 0RF Rx Instructions: stomach upset Continued polyethylene glycol 3350 [Miralax] 17 gram/dose powder 8.5 g PO BID PRN (Reason: Constipation) cholecalciferol (vitamin D3) 50 mcg (2,000 unit) capsule 50 mcg PO DAILY mecobalamin (vitamin B12) 500 mcg tablet,chewable 500 mcg PO Q OTHER DAY vitamin B complex Tablet 1 tab PO Q OTHER DAY Rx Instructions: alternates with b12 qod bupropion HCl 150 mg tablet extended release 24 hr 150 mg PO TID pregabalin 75 mg capsule 75 mg PO BID amlodipine 2.5 mg tablet See Rx Instructions .ROUTE .COMPLEX Rx Instructions: PER PT "TAKES 2.5 MG QAM, THEN 1.25 MG QPM. ascorbic acid (vitamin C) [Vitamin C] 500 mg Tablet 500 mg PO DAILY rosuvastatin 5 mg tablet 5 mg PO QAM Saccharomyces boulardii [Florastor] 250 mg Capsule 250 mg PO DAILY PRN (Reason: diverticulitis flareup) Qty: 0 L.acidophilus-Bifido.longum [Probiotic Pearls] 15 mg (1 billion cell) Capsule,Delayed Release(Dr/Ec) 1 cap PO DAILY Qty: 0 aspirin 81 mg Capsule 81 mg PO QAM riboflavin (vitamin B2) [Vitamin B-2] 100 mg Tablet 200 mg PO DAILY Panzyga 10 % Solution 0 ml IV DIRECTED Opzelura 1.5 % Cream 1 applic TOPICAL DAILY PRN (Reason: DIRECTED) naltrexone 4.5 mg Capsule 4.5 mg PO DAILY Discharge Orders: Discharge Order (Routine); Ordered 03/24/25 Ordered By: Lee Hu Admission Data Admit Date/Time: 03/22/25 21:22 Attending Provider: Lee Hu Admit Provider: Joshua Child Primary Care Provider: PCP,NO Other Providers: Joshua Child Hospital Stay Data Consultations 03/22/25 20:16 ED Decision to Admit Stat Diagnostic Imagining Performed 03/22/25 17:35 CT chest diagnostic wo con Stat Discharge Instructions Given to Patient (Per Discharging Provider) You were seen in the hospital for a left upper lobe pneumonia. You clinically improved on an antibiotic combination with ceftriaxone/azithromycin. You have been discharged to continue antibiotics as below. Due to your history of stomach upset with antibiotics Protonix and Pepcid have been prescribed for you as below. You are prescribed an antibiotic, cefpodoxime. Please take cefpodoxime 200 mg by mouth twice daily for 4 days starting the evening of 03/24/2025. This is a distant cousin to penicillin; however it is a near direct equivalent of the IV antibiotic you tolerated extremely well without side effects during your hospital admission You been prescribed an antibiotic, azithromycin. Please take azithromycin 250 mg by mouth once daily in the evening starting the evening of 03/24/2025. You have been prescribed Protonix 40 mg once daily, and famotidine 10 mg twice daily. These are medications that can help prevent your stomach from upset related to gastritis and medications. Please take these for 1 week to help minimize stomach upset; however if you are feeling well you do not need to take these medications. You have been prescribed Zofran for nausea. You may take Zofran up to every 8 hours as needed if you develop acute nausea. Please call your PCP on Wednesday morning to have a follow-up appointment scheduled for within approximately 1 week If you develop any new or worsening symptoms including fever, chills, sweats, chest pain, chest pressure, difficulty breathing, uncontrolled nausea/vomiting, rash, wheezing, passing out or nearly passing out, bleeding, black/bloody bowel movements, or other new or concerning symptoms please call your primary care physician, or call 911 for re-evaluation in the emergency department if you are very concerned. Total Time Total Time Spent Total Time Spent (In Minutes): Time spend day of discharge 50 minutes including direct patient care, documentation, review of labs and images, and coordination of care. Coding Level of Care Code 60952 INP/OBS DISCH >30 MIN Diagnoses Generalized weakness R53.1 ZAN (acute kidney injury) N17.9 Pneumonia J18.9
[2025-03-24 14:22] VITALS: PULSE 64
== END 2025-03-24 15:58 | disposition home or self-care (01) | DRG 194 ==
LOC: ED 14:31 → EDINP 20:39 → SUATTDRO 20:39 → 2N 22:28